=== PATIENT | female | born 1995 | race Hispanic/Latino ===

== ENCOUNTER 2018-11-20 03:53 | Emergency (ER) | payer OTHER, SELFPAY ==
[2018-11-20] MEDS ORDERED: IBUPROFEN 400 MG TAB ONE (04:09)
[2018-11-20] MEDS ORDERED: IBUPROFEN 200 MG TAB PO ONE (04:09)
--- NOTE | 2018-11-20 04:34 | ER ---
Nurse's Notes [facility] Name: Inés Valencia Age: 23 yrs Sex: Female : 1995 Arrival Date: 11/20/2018 Time: 03:56 Bed 13 Private MD: Diagnosis: Pain in right shoulder Presentation: 11/20 04:05 Presenting complaint: Patient states: I dive in the pool, hit my right shoulder did not rr5 noticed I am too closed on the side of the pool. Transition of care: patient was not received from another setting of care. Onset of symptoms was November 20, 2018 at 02:00. Risk Assessment: Do you want to hurt yourself or someone else? Patient reports no desire to harm self or others. Initial Sepsis Screen: Does the patient meet any 2 criteria? No. Patient's initial sepsis screen is negative. Does the patient have a suspected source of infection? No. Patient's initial sepsis screen is negative. Care prior to arrival: None. 04:05 Method Of Arrival: Ambulatory rr5 04:05 Acuity: FABIOLA 3 rr5 Triage Assessment: 04:15 Injury Description: trauma to right shoulder. 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 - Social history:: Smoking status: Patient/guardian denies using tobacco, Patient uses alcohol, weekly. Patient/guardian denies using street drugs. - Ebola Screening: : Patient negative for fever greater than or equal to 101.5 degrees Fahrenheit, and additional compatible Ebola Virus Disease symptoms Patient denies exposure to infectious person Patient denies travel to an Ebola-affected area in the 21 days before illness onset. Screenin:12 Abuse screen: Denies threats or abuse. Denies injuries from another. Nutritional rr5 screening: No deficits noted. Tuberculosis screening: No symptoms or risk factors identified. Fall Risk None identified. Total Bernal Fall Scale indicates No Risk (0-24 pts). Assessment: 04:12 General: Appears in no apparent distress. uncomfortable, Behavior is calm, cooperative, rr5 appropriate for age. Pain: Complains of pain in right shoulder Pain does not radiate. Pain currently is 7 out of 10 on a pain scale. Quality of pain is described as aching, Pain began suddenly. Neuro: Level of Consciousness is awake, alert, obeys commands, Oriented to person, place, time, situation, Appropriate for age. Cardiovascular: Capillary refill < 3 seconds Patient's skin is warm and dry. Respiratory: Airway is patent Respiratory effort is even, unlabored, Respiratory pattern is regular, symmetrical. GI: No signs and/or symptoms were reported involving the gastrointestinal system. : No signs and/or symptoms were reported regarding the genitourinary system. EENT: No signs and/or symptoms were reported regarding the EENT system. Derm: Skin is intact, Skin temperature is warm. Musculoskeletal: Circulation, motion, and sensation intact. Capillary refill < 3 seconds, Range of motion: limited in right shoulder Reports pain in right shoulder. 04:44 Reassessment: Patient appears in no apparent distress at this time. Patient is alert, rr5 oriented x 3, equal unlabored respirations, skin warm/dry/pink. discharge instruction given and explained without complaints made. Vital Signs: 04:10 BP 114 / 65; Pulse 77; Resp 17; Temp 98; Pulse Ox 98% ; Weight 68.95 kg; Height 4 ft. rr5 10 in. (147.32 cm); Pain 7/10; 04:10 Body Mass Index 31.77 (68.95 kg, 147.32 cm) rr5 ED Course: 03:56 Patient arrived in ED. ag3 03:56 Thad Sauer RN is Primary Nurse. rr5 04:01 Geremias Santoyo MD is Attending Physician. kdr 04:10 Triage completed. rr5 04:12 Arm band placed on left wrist. rr5 04:14 Patient has correct armband on for positive identification. Bed in low position. Call rr5 light in reach. Side rails up X2. 04:14 No provider procedures requiring assistance completed. rr5 04:24 X-ray completed. Portable x-ray completed in exam room. Patient tolerated procedure sw well. 04:27 Shoulder Right (2 View) XRAY In Process Unspecified. EDMS 04:45 Shoulder immobilizer applied on right shoulder. rr5 04:45 Patient did not have IV access during this emergency room visit. rr5 Administered Medications: 04:11 Drug: Ibuprofen 600 mg Route: PO; jd3 04:44 Follow up: Response: No adverse reaction rr5 Outcome: 04:32 Discharge ordered by . kdr 04:45 Discharged to home ambulatory, with friend. rr5 04:45 Condition: stable 04:45 Discharge instructions given to patient, Instructed on discharge instructions, follow up and referral plans. medication usage, Demonstrated understanding of instructions, follow-up care, medications, Prescriptions given X 2. 04:47 Patient left the ED. rr5 Signatures: Dispatcher [employer] EDMS Geremias Santoyo MD MD kdr Warren, Shannon sw Davies, Jonathon, RN RN jd3 Lisbeth Lopez Raymond, RN RN rr5
--- NOTE | 2018-11-20 04:35 | EDPHYS ---
Physician Documentation [facility] Name: Inés Valencia Age: 23 yrs Sex: Female : 1995 Arrival Date: 11/20/2018 Time: 03:56 Bed 13 Private MD: ED Physician Geremias Santoyo HPI: 11/20 04:05 This 23 yrs old Female presents to ER via Unassigned with complaints of kdr Shoulder Injury. 04:05 The patient or guardian complains of contusion, decreased range of motion, an injury, kdr pain, that is acute, tenderness. right shoulder and right trapezius. Context: The problem was sustained at home, at a Pool, resulted from a fall, Was diving into a pool and hit her shoulder on the rail, The patient experiences decreased range of motion, when attempts to raise arm. Onset: The symptoms/episode began/occurred suddenly, just prior to arrival, 3 hour(s) ago. Modifying factors: the symptoms are alleviated by remaining still, The symptoms are aggravated by movement. Associated signs and symptoms: The patient has no apparent associated signs or symptoms. Severity of symptoms: At their worst the symptoms were mild, in the emergency department the symptoms are unchanged. Treatment prior to arrival includes: no previous treatment. The patient has not experienced similar symptoms in the past. The patient has not recently seen a physician. 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 - Social history:: Smoking status: Patient/guardian denies using tobacco, Patient uses alcohol, weekly. Patient/guardian denies using street drugs. - Ebola Screening: : Patient negative for fever greater than or equal to 101.5 degrees Fahrenheit, and additional compatible Ebola Virus Disease symptoms Patient denies exposure to infectious person Patient denies travel to an Ebola-affected area in the 21 days before illness onset. ROS: 04:05 Constitutional: Negative for fever, chills, and weight loss, Eyes: Negative for injury, kdr pain, redness, and discharge, Neck: Negative for injury, pain, and swelling, Cardiovascular: Negative for chest pain, palpitations, and edema, Respiratory: Negative for shortness of breath, cough, wheezing, and pleuritic chest pain, Abdomen/GI: Negative for abdominal pain, nausea, vomiting, diarrhea, and constipation, Back: Negative for injury and pain, : Negative for injury, bleeding, discharge, and swelling, Skin: Negative for injury, rash, and discoloration, Neuro: Negative for headache, weakness, numbness, tingling, and seizure activity. Psych: Negative for depression, anxiety, suicide ideation, homicidal ideation, and hallucinations, Allergy/Immunology: Negative for hives, rash, and allergies, Endocrine: Negative for neck swelling, polydipsia, polyuria, polyphagia, and marked weight changes, Hematologic/Lymphatic: Negative for swollen nodes, abnormal bleeding, and unusual bruising. 04:05 MS/extremity: Positive for injury or acute deformity, decreased range of motion, pain, tenderness, of the right clavicle, right lateral posterior chest and anterior aspect of right shoulder. Exam: 04:05 Constitutional: This is a well developed, well nourished patient who is awake, alert, kdr and in no acute distress. Head/Face: Normocephalic, atraumatic. Neck: Trachea midline, no thyromegaly or masses palpated, and no cervical lymphadenopathy. Supple, full range of motion without nuchal rigidity, or vertebral point tenderness. No Meningismus. Chest/axilla: Normal chest wall appearance and motion. Nontender with no deformity. No lesions are appreciated. 04:05 Musculoskeletal/extremity: Extremities: grossly normal except: noted in the right clavicle and right lateral posterior chest: decreased ROM, pain, tenderness, Circulation is intact in all extremities. Sensation intact. Joints: All joints are normal except the right shoulder displays limited range of motion. Vital Signs: 04:10 BP 114 / 65; Pulse 77; Resp 17; Temp 98; Pulse Ox 98% ; Weight 68.95 kg; Height 4 ft. rr5 10 in. (147.32 cm); Pain 7/10; 04:10 Body Mass Index 31.77 (68.95 kg, 147.32 cm) rr5 MDM: 04:05 Data reviewed: vital signs, nurses notes, radiologic studies. Counseling: I had a kdr detailed discussion with the patient and/or guardian regarding: the historical points, exam findings, and any diagnostic results supporting the discharge/admit diagnosis, radiology results, the need for outpatient follow up. 04:30 ED course: Possible Hill=sachs deformity/fracture. kdr 04:32 Patient medically screened. kdr 11/20 04:05 Order name: Shoulder Right (2 View) XRAY kdr 11/20 04:30 Order name: Sling; Complete Time: 04:33 kdr Administered Medications: 04:11 Drug: Ibuprofen 600 mg Route: PO; jd3 04:44 Follow up: Response: No adverse reaction rr5 Disposition: 11/20/18 04:32 Discharged to Home. Impression: Pain in right shoulder. - Condition is Stable. - Discharge Instructions: Joint Pain, Musculoskeletal Pain, Shoulder Pain, [id number]. - Prescriptions for Tramadol 50 mg Oral Tablet - take 1 tablet by ORAL route every 8 hours as needed; 12 tablet. - Medication Reconciliation Form, Thank You Letter, Prescription Opioid Use form. - Follow up: Private Physician; When: 2 - 3 days; Reason: If symptoms return, Further diagnostic work-up, Recheck today's complaints, Continuance of care, Re-evaluation by your physician. - Problem is new. - Symptoms have improved. Signatures: Dispatcher [employer] EDMS Geremias Santoyo MD MD kdr Nii Costa RN RN jd3 Thad Sauer RN RN rr5 Corrections: (The following items were deleted from the chart) 04:47 04:32 11/20/2018 04:32 Discharged to Home. Impression: Pain in right shoulder. rr5 Condition is Stable. Forms are Medication Reconciliation Form, Thank You Letter, Antibiotic Education, Prescription Opioid Use. Follow up: Private Physician; When: 2 - 3 days; Reason: If symptoms return, Further diagnostic work-up, Recheck today's complaints, Continuance of care, Re-evaluation by your physician. Problem is new. Symptoms have improved. kdr
[2018-11-20 04:59] VITALS: BP 114/65; TEMP 98; O2SAT 98
--- NOTE | 2018-11-20 08:24 | RAD REPORT ---
EXAM DESCRIPTION: Shoulder Right 2 View - 11/20/2018 4:24 am CLINICAL HISTORY: Right shoulder pain following trauma, decreased range of motion COMPARISON: May 2014 TECHNIQUE: Internal and external rotation views of the right shoulder were obtained. FINDINGS: There is no fracture or dislocation. AC joint is normal in appearance. No acute or suspic ious findings. IMPRESSION: Negative two-view right shoulder examination. No change from comparison.
== END 2018-11-20 04:47 | disposition home or self-care (01) ==
LOC: ER 03:53
DX: M25.511 Pain in right shoulder (principal)
CPT/HCPCS: 99284

== ENCOUNTER 2021-03-14 13:49 | Emergency (ER) | payer SELFPAY ==
--- OUTSIDE RECORDS SUMMARY | 2021-03-14 13:53 | XMS REPORT | Continuity of Care Document ---
:1995 Author Organization [facility] t Address [address] [place] [address] Dr. Golden [address] [place] [id number] Care Team Providers Name Role Phone Unavailable Unavailable Unavailable Problems This patient has no known problems. Allergies, Adverse Reactions, Alerts This patient has no known allergies or adverse reactions. Medications This patient has no known medications. Procedures This patient has no known procedures. Results This patient has no known results.
[2021-03-14 15:20] LABS: SARS-COV-2 RT PCR POSITIVE (NEGATIVE)
--- NOTE | 2021-03-14 15:38 | ER ---
Nurse's Notes [facility] Name: Inés Valencia Age: 25 yrs Sex: Female : 1995 Arrival Date: 03/14/2021 Time: 14:06 Bed Waiting Private MD: Diagnosis: Coronavirus infection, unspecified Presentation: 03/14 14:19 Chief complaint: Patient states: body aches, chills, congestion, nausea, fatigue for ld1 two days. Coronavirus screen: Client presents with at least one sign or symptom that may indicate coronavirus-19. Standard/surgical mask placed on the client. Ebola Screen: No symptoms or risks identified at this time. Initial Sepsis Screen: Does the patient meet any 2 criteria? No. Patient's initial sepsis screen is negative. Does the patient have a suspected source of infection? No. Patient's initial sepsis screen is negative. Risk Assessment: Do you want to hurt yourself or someone else? Patient reports no desire to harm self or others. Onset of symptoms was March 14, 2021. 14:19 Method Of Arrival: Ambulatory ld1 14:19 Acuity: FABIOLA 4 ld1 Triage Assessment: 14:19 General: Appears in no apparent distress. comfortable, Behavior is calm, cooperative, ld1 appropriate for age. Pain: Denies pain. Respiratory: Airway is patent Respiratory effort is even, unlabored. 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 - Social history:: Smoking status: Reported history of juuling and/or vaping. Patient uses alcohol, occasionally. Patient/guardian denies using alcohol, street drugs, The patient lives with family. - Family history:: not pertinent. Vital Signs: 14:19 BP 136 / 74; Pulse 93; Resp 18; Temp 99.3(O); Pulse Ox 100% on R/A; Weight 79.38 kg; ld1 Height 5 ft. 2 in. (157.48 cm); Pain 0/10; 14:19 Body Mass Index 32.01 (79.38 kg, 157.48 cm) ld1 ED Course: 14:06 Patient arrived in ED. am2 14:06 Maxwell Lopez MD is Private Physician. am2 14:19 Triage completed. ld1 14:19 Arm band placed on right wrist. ld1 14:24 COVID-19/FLU A+B (Document "Date of Onset" if Symptomatic) Sent. ld1 15:27 Lucoi Garcia PA is PHCP. cp 15:27 Denis Reeves MD is Attending Physician. cp 15:43 Patient did not have IV access during this emergency room visit. ld1 Administered Medications: No medications were administered Outcome: 15:37 Discharge ordered by . ma2 15:42 Discharged to home ambulatory. ld1 15:42 Condition: stable 15:42 Discharge instructions given to patient, Instructed on discharge instructions, follow up and referral plans. medication usage, Demonstrated understanding of instructions, follow-up care, medications, Prescriptions given X 4. 15:43 Patient left the ED. ld1 Signatures: Lucio Garcia PA PA Mita Avina am2 Denis Reeves MD MD ma2 Quita Reeves RN RN ld1 Corrections: (The following items were deleted from the chart) 14:20 14:19 PSHx: Unable to Obtain; ld1 ld1
--- NOTE | 2021-03-14 15:38 | EDPHYS ---
Physician Documentation [facility] Name: Inés Valencia Age: 25 yrs Sex: Female : 1995 Arrival Date: 03/14/2021 Time: 14:06 Bed Waiting Private MD: ED Physician Denis Reeves HPI: 03/14 15:36 This 25 yrs old Female presents to ER via Ambulatory with complaints of r/o ma2 covid. 15:36 Onset: The symptoms/episode began/occurred suddenly, gradually, 2 day(s) ago. Severity ma2 of symptoms: At their worst the symptoms were mild. Associated signs and symptoms: The patient has no apparent associated signs or symptoms. The patient has not experienced similar symptoms in the past. 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 - Social history:: Smoking status: Reported history of juuling and/or vaping. Patient uses alcohol, occasionally. Patient/guardian denies using alcohol, street drugs, The patient lives with family. - Family history:: not pertinent. ROS: 15:36 Constitutional: Negative for fever, chills, and weight loss. ma2 15:36 All other systems are negative. Exam: 15:36 Constitutional: This is a well developed, well nourished patient who is awake, alert, ma2 and in no acute distress. Head/Face: Normocephalic, atraumatic. Eyes: Pupils equal round and reactive to light, extra-ocular motions intact. Lids and lashes normal. Conjunctiva and sclera are non-icteric and not injected. Cornea within normal limits. Periorbital areas with no swelling, redness, or edema. ENT: Nares patent. No nasal discharge, no septal abnormalities noted. Tympanic membranes are normal and external auditory canals are clear. Oropharynx with no redness, swelling, or masses, exudates, or evidence of obstruction, uvula midline. Mucous membranes moist. Neck: Trachea midline, no thyromegaly or masses palpated, and no cervical lymphadenopathy. Supple, full range of motion without nuchal rigidity, or vertebral point tenderness. No Meningismus. Respiratory: Lungs have equal breath sounds bilaterally, clear to auscultation and percussion. No rales, rhonchi or wheezes noted. No increased work of breathing, no retractions or nasal flaring. MS/ Extremity: Pulses equal, no cyanosis. Neurovascular intact. Full, normal range of motion. Neuro: Awake and alert, GCS 15, oriented to person, place, time, and situation. Cranial nerves II-XII grossly intact. Motor strength 5/5 in all extremities. Sensory grossly intact. Cerebellar exam normal. Normal gait. Vital Signs: 14:19 BP 136 / 74; Pulse 93; Resp 18; Temp 99.3(O); Pulse Ox 100% on R/A; Weight 79.38 kg; ld1 Height 5 ft. 2 in. (157.48 cm); Pain 0/10; 14:19 Body Mass Index 32.01 (79.38 kg, 157.48 cm) ld1 MDM: 15:36 Differential Diagnosis: Bronchitis Influenza Upper Respiratory Infection Sinusitis. ma2 Data reviewed: vital signs, nurses notes. Counseling: I had a detailed discussion with the patient and/or guardian regarding: the historical points, exam findings, and any diagnostic results supporting the discharge/admit diagnosis, the presence of at least one elevated blood pressure reading (>120/80) during this emergency department visit, the need for outpatient follow up. 15:37 Patient medically screened. ma2 03/14 14:21 Order name: COVID-19/FLU A+B (Document "Date of Onset" if Symptomatic); Complete Time: ld1 15:27 03/14 15:27 Interpretation: Reviewed. cp Administered Medications: No medications were administered Disposition Summary: 03/14/21 15:37 Discharge Ordered Location: Home ma2 Condition: Stable ma2 Diagnosis - Coronavirus infection, unspecified ma2 Followup: ma2 - With: Private Physician - When: Tomorrow - Reason: If symptoms return, Continuance of care Discharge Instructions: - COVID-19 ma2 - COVID-19 Frequently Asked Questions ma2 - Discharge Summary Sheet ld1 - 10 Things You Can Do to Manage Your COVID-19 Symptoms at Home - [facility] ma2 - COVID-19: Quarantine vs. Isolation - [facility] ma2 Forms: - Work release form ld1 - Medication Reconciliation Form ma2 - Thank You Letter ma2 - Antibiotic Education ma2 - Prescription Opioid Use ma2 Prescriptions: - Tessalon Perles 100 mg Oral Capsule - take 1 capsule by ORAL route every 8 hours As needed; 15 capsule; Refills: 0, ma2 Product Selection Permitted - Diclofenac Sodium 75 mg Oral Tablet Sustained Release - take 1 tablet by ORAL route 2 times per day; 30 tablet; Refills: 0, Product ma2 Selection Permitted - Zithromax Z-Fabricio 250 mg Oral Tablet - take 1 tablet by ORAL route as directed for 5 days Day 1 - take two (2) tablets ma2 one time. Day 2, 3, 4 , 5 take one (1) tablet once daily.; 6 tablet; Refills: 0, Product Selection Permitted - Medrol (Fabricio) 4 mg Oral Tablets, Dose Pack - take 1 tablet by ORAL route as directed - follow package instructions; 1 ma2 packet; Refills: 0, Product Selection Permitted Signatures: Dispatcher [employer] EDMS Lucio Garcia PA PA Denis Zacarias MD MD ma2 Quita Reeves RN RN ld1 Corrections: (The following items were deleted from the chart) 14:20 14:19 PSHx: Unable to Obtain; ld1 ld1
[2021-03-14 15:48] VITALS: BP 136/74; TEMP 99.3; O2SAT 100
== END 2021-03-14 15:43 | disposition home or self-care (01) ==
LOC: ER 13:49
DX: U07.1 COVID-19 (principal)
CPT/HCPCS: 0240U; 99283

== ENCOUNTER 2021-06-09 04:27 | Emergency (ER) | payer OTHER ==
--- OUTSIDE RECORDS SUMMARY | 2021-06-09 04:29 | XMS REPORT | Continuity of Care Document ---
:1995 Author Organization [facility] t Address [address] [place] [address] Dr. Golden [address] [place] [id number] Care Team Providers Name Role Phone Unavailable Unavailable Unavailable Problems This patient has no known problems. Allergies, Adverse Reactions, Alerts This patient has no known allergies or adverse reactions. Medications This patient has no known medications. Procedures This patient has no known procedures. Results Test Description Test Time Test Comments Results Result Comments Source CULTURE, URINE 2021-03-07 SPECIMEN NUMBER: 08:[id number] CULTURE, URINE SPECIMEN NUMBER: [id number] SPECIMEN COMMENT: URINE SOURCE: URINE REPORT STATUS: FINAL FINAL REPORT: 03/07/2021 50-100,000 CFU/ML UROGENITAL LALO PRESENT NO COMMON PATHOGENS VAGINAL PATHOGENS DNA PANEL 2021-03-06 14:35:22 Test Item Value Reference Range Interpretation Comme nts COTY SPECIES (test code = NEGATIVE NEGATIVE ) G. VAGINALIS (test code = NEGATIVE NEGATIVE ) T. VAGINALIS (test code = NEGATIVE NEGATIVE UNLESS OTHERWISE INDICATED, ) ALL TESTING PER FORMED ATCLINICAL PATHOLOGY LABOR [facility] [address] [place] [id number] LABORATORY DIRE CTOR: MOIRA AGUILAR M.D. CLIA NUMBER [id number] [place]. [id number]
[2021-06-09] MEDS ORDERED: ACETAMINOPHEN 500 MG TAB ONE (04:51)
[2021-06-09] MEDS ORDERED: IBUPROFEN 200 MG TAB PO ONE (05:04)
[2021-06-09] MEDS ORDERED: IBUPROFEN 400 MG TAB ONE (05:04)
[2021-06-09] MEDS ORDERED: NA CHLORIDE 0.9% 2,000 ML ONE (05:32)
[2021-06-09] MEDS ORDERED: CEFTRIAXONE 1000 MG/VIAL ONE (05:32)
[2021-06-09 05:37] LABS: Absolute Lymphocytes (CBC) 1.2 K/uL (0.7-4.9); Lymphocytes % 18.3 % (15.3-44.8); MPV 7.3 fL (7.6-11.3); RBC Red Blood Cell Count 4.27 M/uL (3.86-4.86)
[2021-06-09 05:58] LABS: SARS-COV-2 RT PCR NEGATIVE (NEGATIVE)
[2021-06-09] MEDS ORDERED: AZITHROMYCIN 250 MG TAB ONE (06:08)
--- NOTE | 2021-06-09 06:10 | ER ---
Nurse's Notes [facility] Name: Inés Valencia Age: 25 yrs Sex: Female : 1995 Arrival Date: 06/09/2021 Time: 04:31 Bed 13 Private MD: Diagnosis: Fever, unspecified;Acute upper respiratory infection, unspecified;Influenza due to identified novel influenza A virus Presentation: 06/09 04:48 Chief complaint: Patient states: she has been having a cough, fever, chills and body sm5 aches since Tuesday night. states she has been taking an antibiotic at home that is her mom's and not prescribed to her. Coronavirus screen: Vaccine status: Patient reports being unvaccinated. Ebola Screen: No symptoms or risks identified at this time. Initial Sepsis Screen: Does the patient meet any 2 criteria? Temp <36.0*C (96.8*F)) or > 38.3*C (100.9*F). HR > 90 bpm. Yes Does the patient have a suspected source of infection? Yes: Productive cough/pneumonia. Risk Assessment: Do you want to hurt yourself or someone else? Patient reports no desire to harm self or others. Onset of symptoms was June 06, 2021. 04:48 Method Of Arrival: Ambulatory [facility] 04:48 Acuity: FABIOLA 3 sm5 Triage Assessment: 05:03 General: Appears uncomfortable, ill, Behavior is calm, cooperative, appropriate for vc1 age. Pain: Denies pain. Complains of pain in "all over" Pain does not radiate. Neuro: Level of Consciousness is awake, alert, obeys commands, Oriented to person, place, time, situation, Appropriate for age. Respiratory: Airway is patent Respiratory effort is even, unlabored, Respiratory pattern is regular, symmetrical. 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 Flu vaccine is up to date. - Social history:: Smoking status: Reported history of juuling and/or vaping. Screenin:03 Abuse screen: Denies threats or abuse. Nutritional screening: No deficits noted. vc1 Tuberculosis screening: No symptoms or risk factors identified. Fall Risk None identified. Assessment: 05:05 Reassessment: See Triage for assessment. Patient instructed to keep sweater off until vc1 temperature is down. 06:11 Reassessment: Patient and/or family updated on plan of care and expected duration. Pain vc1 level reassessed. Patient is alert, oriented x 3, equal unlabored respirations, skin warm/dry/pink. Patient states feeling better. Patient states symptoms have improved. Vital Signs: 04:48 BP 157 / 100; Pulse 113; Resp 19; Temp 103.5(O); Pulse Ox 100% on R/A; Weight 90.72 kg; 5 Height 4 ft. 11 in. (149.86 cm); 05:44 BP 135 / 85; Pulse 94; Resp 20; Temp 101.5(O); Pulse Ox 98% ; vc1 05:52 Temp 101.5; vc1 06:24 Temp 101.5; vc1 06:30 BP 120 / 84; Pulse 88; Resp 18; Temp 99.5; Pulse Ox 100% on R/A; vc1 04:48 Body Mass Index 40.39 (90.72 kg, 149.86 cm) [facility] ED Course: 04:31 Patient arrived in ED. es 04:49 Triage completed. [facility] 04:50 Arm band placed on right wrist. [facility] 05:04 Lucio Huntley MD is Attending Physician. [facility] 05:04 Patient has correct armband on for positive identification. Bed in low position. Call vc1 light in reach. Pulse ox on. NIBP on. 05:43 CBC with Diff Sent. vc1 05:43 COVID-19/FLU A+B Sent. vc1 05:43 Comprehensive Metabolic Panel Sent. vc1 05:43 Blood Culture Adult (2) Sent. vc1 05:43 Lactate Sent. vc1 05:52 Faith Jimenez, LAM is Primary Nurse. vc1 05:53 Chest Single View XRAY In Process Unspecified. EDMS 06:47 No provider procedures requiring assistance completed. IV discontinued, intact, vc1 bleeding controlled, No redness/swelling at site. Pressure dressing applied. Administered Medications: 04:51 Drug: Tylenol 1000 mg Route: PO; vc1 05:52 Follow up: Temp 101.5; Response: No adverse reaction; Temperature is decreased vc1 05:03 Drug: Motrin (ibuprofen) 600 mg Route: PO; vc1 06:24 Follow up: Temp 101.5; Response: No adverse reaction; Temperature is decreased vc1 05:43 Drug: NS 0.9% (30 ml/kg) 30 ml/kg Route: IV; Rate: bolus; Site: right antecubital; vc1 06:49 Follow up: Response: No adverse reaction; Marked relief of symptoms; IV Status: vc1 Completed infusion; IV Intake: 700ml ; Patient ready to leave. 05:44 Drug: Rocephin (cefTRIAXone) 1 grams Route: IV; Rate: per protocol; Site: right vc1 antecubital; 06:48 Follow up: Response: No adverse reaction; IV Intake: 20ml vc1 06:49 Follow up: IV Status: Completed infusion vc1 06:21 Drug: Zithromax (azithromycin) 500 mg Route: PO; vc1 06:46 Follow up: Response: No adverse reaction vc1 Intake: 06:48 IV: 20ml; Total: 20ml. vc1 06:49 IV: 700ml; Total: 720ml. vc1 Outcome: 06:10 Discharge ordered by MD. diane 06:47 Discharged to home ambulatory. vc1 06:47 Condition: good 06:47 Discharge instructions given to patient, Instructed on discharge instructions, follow up and referral plans. medication usage, Demonstrated understanding of instructions, follow-up care, medications. 06:48 Patient left the ED. vc1 Signatures: Dispatcher [employer] Lucio Serna MD MD cha Salyer, Edna es Mazur, Sarah RN RN sm5 Faith Jimenez RN RN vc1
--- NOTE | 2021-06-09 06:11 | EDPHYS ---
Physician Documentation [facility] Name: Inés Valencia Age: 25 yrs Sex: Female : 1995 Arrival Date: 06/09/2021 Time: 04:31 Bed 13 Private MD: ED Physician Lucio Huntley HPI: 06/09 05:35 This 25 yrs old Female presents to ER via Ambulatory with complaints of Fever, roxi Cough, chills,body ache. 05:35 The patient reports fever, that was measured at 103.5 degrees Fahrenheit. Onset: The roxi symptoms/episode began/occurred 5 day(s) ago. Modifying factors: there are no obvious modifying factors. Associated signs and symptoms: Pertinent positives: chills, cough. Severity of symptoms: At their worst the symptoms were moderate in the emergency department the symptoms are unchanged. The patient has not experienced similar symptoms in the past. 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 Flu vaccine is up to date. - Social history:: Smoking status: Reported history of juuling and/or vaping. ROS: 05:36 Eyes: Negative for injury, pain, redness, and discharge, ENT: Negative for injury, roxi pain, and discharge, Neck: Negative for injury, pain, and swelling, Cardiovascular: Negative for chest pain, palpitations, and edema, Abdomen/GI: Negative for abdominal pain, nausea, vomiting, diarrhea, and constipation, Back: Negative for injury and pain, : Negative for injury, bleeding, discharge, and swelling, MS/Extremity: Negative for injury and deformity, Skin: Negative for injury, rash, and discoloration, Neuro: Negative for headache, weakness, numbness, tingling, and seizure, Psych: Negative for depression, anxiety, suicide ideation, homicidal ideation, and hallucinations, Allergy/Immunology: Negative for hives, rash, and allergies, Endocrine: Negative for neck swelling, polydipsia, polyuria, polyphagia, and marked weight changes, Hematologic/Lymphatic: Negative for swollen nodes, abnormal bleeding, and unusual bruising. 05:36 Constitutional: Positive for body aches, chills, fever. 05:36 Respiratory: Positive for cough, with no reported sputum. Exam: 05:36 Head/Face: Normocephalic, atraumatic. Eyes: Pupils equal round and reactive to light, roxi extra-ocular motions intact. Lids and lashes normal. Conjunctiva and sclera are non-icteric and not injected. Cornea within normal limits. Periorbital areas with no swelling, redness, or edema. ENT: Nares patent. No nasal discharge, no septal abnormalities noted. Tympanic membranes are normal and external auditory canals are clear. Oropharynx with no redness, swelling, or masses, exudates, or evidence of obstruction, uvula midline. Mucous membranes moist. Neck: Trachea midline, no thyromegaly or masses palpated, and no cervical lymphadenopathy. Supple, full range of motion without nuchal rigidity, or vertebral point tenderness. No Meningismus. Chest/axilla: Normal chest wall appearance and motion. Nontender with no deformity. No lesions are appreciated. Abdomen/GI: Soft, non-tender, with normal bowel sounds. No distension or tympany. No guarding or rebound. No evidence of tenderness throughout. Back: No spinal tenderness. No costovertebral tenderness. Full range of motion. Pelvic Exam: Normal external genitalia. Speculum exam with closed cervical os, no discharge or bleeding noted. Bimanual exam with normal adnexa, no adnexal or cervical motion tenderness. Normal uterus. Skin: Warm, dry with normal turgor. Normal color with no rashes, no lesions, and no evidence of cellulitis. MS/ Extremity: Pulses equal, no cyanosis. Neurovascular intact. Full, normal range of motion. Neuro: Awake and alert, GCS 15, oriented to person, place, time, and situation. Cranial nerves II-XII grossly intact. Motor strength 5/5 in all extremities. Sensory grossly intact. Cerebellar exam normal. Normal gait. Psych: Awake, alert, with orientation to person, place and time. Behavior, mood, and affect are within normal limits. 05:36 Constitutional: The patient appears febrile. 05:36 Cardiovascular: Rate: tachycardic, Rhythm: regular, Pulses: Pulses are 4+ in bilateral radial, brachial, femoral, popliteal, posterior tibial and and dorsalis pedis arteries.. Heart sounds: normal, normal S1and S2, no S3 or S4, no murmur, no rub, no gallop, Edema: is not appreciated, JVD: is not appreciated. 05:36 Respiratory: the patient does not display signs of respiratory distress, Respirations: normal, Breath sounds: are clear throughout, no bronchial sounds, no decreased breath sounds, no rales, rhonchi, no stridor, no wheezing. Vital Signs: 04:48 BP 157 / 100; Pulse 113; Resp 19; Temp 103.5(O); Pulse Ox 100% on R/A; Weight 90.72 kg; 5 Height 4 ft. 11 in. (149.86 cm); 05:44 BP 135 / 85; Pulse 94; Resp 20; Temp 101.5(O); Pulse Ox 98% ; vc1 05:52 Temp 101.5; vc1 06:24 Temp 101.5; vc1 06:30 BP 120 / 84; Pulse 88; Resp 18; Temp 99.5; Pulse Ox 100% on R/A; vc1 04:48 Body Mass Index 40.39 (90.72 kg, 149.86 cm) [facility] MDM: 05:04 Patient medically screened. roxi 05:37 Differential diagnosis: viral Infection, bacterial infection, URI, bronchitis, roxi pneumonia UTI. Differential Diagnosis: Bronchitis Influenza Upper Respiratory Infection Allergic Rhinitis Viral Syndrome Pneumonia. Data reviewed: vital signs, nurses notes, lab test result(s), radiologic studies, plain films. Data interpreted: audiometric technician: rate is 113 beats/min, rhythm is regular, Pulse oximetry: on room air. Test interpretation: by ED physician or midlevel provider: plain radiologic studies. Counseling: I had a detailed discussion with the patient and/or guardian regarding: the historical points, exam findings, and any diagnostic results supporting the discharge/admit diagnosis, lab results, radiology results, the need for outpatient follow up, for definitive care, a family practitioner. 06/09 04:57 Order name: Strep vc1 06/09 04:57 Order name: Group A Streptococcus Rapid Sc; Complete Time: 06:09 EDMS 06/09 05:04 Order name: COVID-19/FLU A+B; Complete Time: 06:09 EDMS 06/09 05:08 Order name: CBC with Diff roxi 06/09 05:08 Order name: Comprehensive Metabolic Panel [facility] 06/09 05:08 Order name: Blood Culture Adult (2) [facility] 06/09 05:08 Order name: Lactate; Complete Time: 06:09 [facility] 06/09 05:08 Order name: CBC with Automated Diff; Complete Time: 06:09 [facility] 06/09 05:20 Order name: Throat Culture [facility] 06/09 05:31 Order name: Chest Single View XRAY [facility] 06/09 06:19 Order name: Urine Dipstick-Ancillary [facility] 06/09 05:31 Order name: Urine Dipstick-Ancillary (obtain specimen); Complete Time: 06:24 [facility] 06/09 05:31 Order name: Urine Test (obtain specimen); Complete Time: 06:24 [facility] 06/09 05:53 Order name: Labs - recollect needed: green top; Complete Time: 06:01 mw2 Administered Medications: 04:51 Drug: Tylenol 1000 mg Route: PO; vc1 05:52 Follow up: Temp 101.5; Response: No adverse reaction; Temperature is decreased vc1 05:03 Drug: Motrin (ibuprofen) 600 mg Route: PO; vc1 06:24 Follow up: Temp 101.5; Response: No adverse reaction; Temperature is decreased vc1 05:43 Drug: NS 0.9% (30 ml/kg) 30 ml/kg Route: IV; Rate: bolus; Site: right antecubital; vc1 06:49 Follow up: Response: No adverse reaction; Marked relief of symptoms; IV Status: vc1 Completed infusion; IV Intake: 700ml ; Patient ready to leave. 05:44 Drug: Rocephin (cefTRIAXone) 1 grams Route: IV; Rate: per protocol; Site: right vc1 antecubital; 06:48 Follow up: Response: No adverse reaction; IV Intake: 20ml vc1 06:49 Follow up: IV Status: Completed infusion vc1 06:21 Drug: Zithromax (azithromycin) 500 mg Route: PO; vc1 06:46 Follow up: Response: No adverse reaction vc1 Disposition Summary: 06/09/21 06:10 Discharge Ordered Location: Home roxi Problem: new roxi Symptoms: have improved roxi Condition: Stable roxi Diagnosis - Fever, unspecified roxi - Acute upper respiratory infection, unspecified roxi - Influenza due to identified novel influenza A virus roxi Followup: [facility] - With: Private Physician - When: 1 - 2 days - Reason: Recheck today's complaints, Continuance of care, Re-evaluation by your physician Discharge Instructions: - Discharge Summary Sheet roxi - Fever, Adult roxi - Upper Respiratory Infection, Adult roxi - Cool Mist Vaporizer roxi - Upper Respiratory Infection, Adult, [id number] roxi - Influenza, Adult roxi - Cough, Adult roxi - Influenza, Adult, [id number] [facility] Forms: - Medication Reconciliation Form [facility] - Thank You Letter [facility] - Antibiotic Education [facility] - Prescription Opioid Use [facility] Prescriptions: - Zithromax 500 mg Oral Tablet - take 1 tablet by ORAL route once daily for 5 days; 5 tablet; Refills: 0, roxi Product Selection Permitted Signatures: Dispatcher [employer] Lucio Serna MD MD cha Westbrook, Jairo mw2 Jazz Humphrey, RN RN sm5 Faith Jimenez RN RN vc1
[2021-06-09 06:19] LABS: Urine Blood Negative (Negative); Urine Glucose Negative (Negative); Urine Protein Negative (Negative); Urine Specific Gravity 1.025 (1.005-1.030); Urine pH 5.5 (5.0-7.0)
[2021-06-09 06:53] LABS: ALT/SGPT 42 U/L (12-78); AST/SGOT 27 U/L (15-37); Albumin 2.9 g/dL (3.4-5.0); Alkaline Phosphatase 89 U/L (45-117); BUN Blood Urea Nitrogen 12 mg/dL (7-18); Bicarbonate 24 mmol/L (21-32); Bilirubin Total 0.2 mg/dL (0.2-1.0); Glucose Level 108 mg/dL (74-106); Potassium 3.8 mmol/L (3.5-5.1); Protein, Total 6.5 g/dL (6.4-8.2); Sodium Level 137 mmol/L (136-145)
[2021-06-09 07:03] VITALS: BP 120/84; TEMP 99.5; O2SAT 100
--- NOTE | 2021-06-09 10:53 | RAD REPORT ---
EXAM DESCRIPTION: RAD - Chest Single View - 06/09/2021 5:53 am CLINICAL HISTORY: The patient is 25 years old and is Female; COUGH TECHNIQUE: Frontal view of the chest. COMPARISON: No relevant prior studies available. FINDINGS: Lungs: Haziness in the left lung base which may be due to overlying soft tissue, atelect asis, or airspace disease. Pleural space: Unremarkable. No pneumothorax. Heart: Unremarkable. Mediastinum: Unremarkable. Bones/joints: Unremarkable. Vasculature: Mildly prominent interstitial and vascular markings bilaterally. IMPRESSION: 1. Haziness in the left lung base which may be due to overlying soft tissue, atelectas is, or airspace disease. 2. Mildly prominent interstitial and vascular markings bilaterally. Electronically signed by: Twin Jean MD 06/09/2021 6:05 AM CDT Due to temporary technical issues with the PACS/Fluency reporting system, reports are being signed by the in house radiologists without review as a courtesy to insure prompt reporting. The interpreting radiologist is fully responsible for the content of the report.
== END 2021-06-09 06:48 | disposition home or self-care (01) ==
LOC: ER 04:27
DX: J10.1 Influenza due to other identified influenza virus with other respiratory manifestations (principal); Z20.822 Contact with and (suspected) exposure to COVID-19; E11.9 Type 2 diabetes mellitus without complications
CPT/HCPCS: 96365; 87040 ×2; 87070; 85025; 36415; 87081; 83605; 81003; 80053; 0240U; 71045; 99284; J7030

== ENCOUNTER 2023-12-29 23:53 | Emergency (ER) | payer OTHER, SELFPAY ==
--- OUTSIDE RECORDS SUMMARY | 2023-12-29 23:59 | XMS REPORT | Continuity of Care Document ---
Author Name Unknown Address [address] [facility] [address] [place] [address] [facility] thconnect Address [address] [facility] [address] [place] [address] Care Team Providers Care Bowling Alley Manager Name Role Phone PCP, PATIENT DOES NOT HAVE A Primary Care Physic michi Unavailable ANTONIO MORE Attending Clinician UnavailAntonio Iqbal Attending Clinician EVA WILSON Attending Clinician Unavailab Eva Dela Cruz DO Attending Clinician [phone] ANTONIO MORE Admitting Clinician Eleuterio james Payers Payer Name Policy Type Policy Number Effective Date Expirati on Date Source [facility] [id number] 2023 00:00:00 [facility] [id number] 2021 00:00:00 Problems Condition Name Condition Details Condition Category Status Onset Date Resolution Date Last Treatment Date Treating Clinician Comments Source Contracept joaquín management Contracept joaquín management Disease Active 05-30 00:00: 00 [facility] Over weight Over weight Disease Active 05-30 00:00: 00 [facility] Allergies, Adverse Reactions, Alerts Allergy Name Allergy Type Status Severity Reaction(s) Onset Date Inactive Date Treating Clinician Comments Source [place] - Intraven ous Propensi ty to adverse reaction to drug Active 09-12 00:00: 00 Oj Liang NO KNOWN ALLERGIE S Drug Class Active [facility] Social History Social Habit Start Date Stop Date Quantity Comments Source [facility] 2023-03-19 00:00:00 2023-03-19 00:00:00 Current drinker of alcohol (finding) [facility] History of Social function 2023-03-19 00:00:00 2023-03-19 00:00:00 [facility] Exposure to SARS-CoV-2 (event) 2022-07-03 00:00:00 2022-07-13 10:18:00 Not sure [facility] Tobacco use and exposure 2017-05-30 00:00:00 2017-05-30 00:00:00 Smokeless tobacco non-user [facility] Tobacco Comment 2017-05-30 00:00:00 2017-05-30 00:00:00 denies smoke expsoure [facility] Alcohol Comment 2016-10-05 00:00:00 2016-10-05 00:00:00 occasional [facility] Sex Assigned At 1995 00:00:00 1995 00:00:00 [facility] Smoking Status Start Date Stop Date Source Never smoked tobacco [facility] Medications Ordered Medication Name Filled Medication Name Start Date Stop Date Current Medication? Ordering Clinician Indication Dosage Frequency Signature (SIG) Comments Components Source ondansetron 4 mg disintegrat ing tablet 10-29 00:00: 00 Yes 1mg Oj Liang acetaminoph en (TYLENOL) tablet 1,000 mg 2022-03 08:15: 00 03-19 07:19 :00 No 1000mg 1,000 mg, Oral, ONCE, 1 dose, On 03/19/23 at 0215, Routine [facility] BENZONATATE 100 MG 2022-03 00:00: 00 Yes Oj Liang INHALE TWO (2) PUFFS BY MOUTH EVERY FOUR HOURS NEEDED FOR WHEEZING OR SHORTNESS OF BREATH. 2022-03 00:00: 00 Yes Oj Liang benzonatate 100 mg capsule 2022-03 00:00: 00 Yes [id number] 100mg Take 1 capsule by mouth 3 (three) times daily as needed for Cough. [facility] albuterol 90 mcg/actuati on inhaler 2022-03 2-30 00:00: 00 Yes [id number] 2{puff} Inhale 2 Puffs every 4 (four) hours as needed for Wheezing or Shortness of Breath. [facility] TAKE ONE (1) TABLET(S) BY MOUTH NOW AND REPEAT IN 72 HOURS. 2022-03 00:00: 00 Yes Oj Liang TAKE ONE (1) TABLET BY MOUTH TWICE A DAY FOR 7 DAYS. 2022-03 0 00:00: 00 Yes Oj Liang TAKE 1 TABLET DAILY. 11-09 00:00: 00 06-30 00:00 :00 No 1 Oj Liang TAKE 1 TABLET TWICE DAILY UNTIL FINISHED. 07-16 00:00: 00 06-30 00:00 :00 No 500 Oj Liang TAKE ONE NOW AND REPEAT IN 3 DAYS 07-16 00:00: 00 06-30 00:00 :00 No 150 Oj Liang TAKE 1 TABLET EVERY 12 HOURS DAILY. 07-16 00:00: 00 06-30 00:00 :00 No 1 Oj Liang TAKE ONE NOW AND REPEAT IN 3 DAYS 07-15 00:00: 00 06-30 00:00 :00 No 150 Oj Liang TAKE 1 TABLET EVERY 12 HOURS DAILY. 07-15 00:00: 00 06-30 00:00 :00 No 1 Oj Liang TAKE 1 TABLET TWICE DAILY UNTIL FINISHED. 07-15 00:00: 00 06-30 00:00 :00 No 500 Oj Liang TAKE ONE (1) TABLET(S) BY MOUTH EVERY TWELVE HOURS. 07-13 00:00: 00 Yes Oj Liang sulfamethox azole-trime thoprim 800-160 mg per tablet 07-13 00:00: 00 Yes [id number] 1{tbl} Take 1 tablet by mouth every 12 (twelve) hours. [facility] TAKE 10 ML EVERY 6 TO 8 HOURS NEEDED FOR COUGH 07-12 00:00: 00 06-30 00:00 :00 No [id number] Oj F Garth TAKE 2 TABLETS ON DAY 1 THEN TAKE 1 TABLET A DAY FOR 4 DAYS. 4-24 00:00: 00 06-30 00:00 :00 No 250 Oj F Garth TAKE 1 TABLET DAILY. 3-01 00:00: 00 06-30 00:00 :00 No 500 Oj F Garth APPLY SPARINGLY TO AFFECTED AREA(S) TWICE DAILY 1-25 00:00: 00 06-30 00:00 :00 No 12 Oj F Garth TAKE 1 TAB DAILY THE FIRST 5 DAYS, THEN HALF TAB DAILY THE LAST 5 DAYS 1-25 00:00: 00 06-30 00:00 :00 No 20 Oj F Garth Dose Unknown 2021-03 2-14 00:00: 00 Yes Oj F Garth Dose Unknown 2021-03 2-14 00:00: 00 Yes Oj F Garth Dose Unknown 2021-03 2-14 00:00: 00 Yes Oj F Garth APPLY 1 APPLICATION ON THE SKIN 3 TIMES WEEKLY 2021-03 2-14 00:00: 00 06-30 00:00 :00 No Oj F Garth Dose Unknown 2021-03 2-14 00:00: 00 06-30 00:00 :00 No Oj F Garth Dose Unknown 2021-03 2-14 00:00: 00 06-30 00:00 :00 No Oj F Garth TAKE 2 TABLETS BY MOUTH ON DAY 1, THEN 1 TABLET DAILY ON DAYS 2 TO 5. 2021-03 2-14 00:00: 00 06-30 00:00 :00 No Oj F Garth Dose Unknown 8-02 00:00: 00 Yes Oj F Garth Dose Unknown 6-29 00:00: 00 06-30 00:00 :00 No Oj F Garth TAKE FIVE (5) TO 10 ML(S) BY MOUTH EVERY SIX HOURS NEEDED FOR COUGH. 6-25 00:00: 00 Yes Oj F Garth Dose Unknown 6-25 00:00: 00 Yes Oj F Garth Dose Unknown 6-25 00:00: 00 Yes Oj Liang TAKE ONE (1) TABLET(S) BY MOUTH AND REPEAT IN 72 HOURS. 09-09 00:00: 00 Yes Oj Liang Dose Unknown 09-09 00:00: 00 Yes Oj Liang Dose Unknown 09-09 00:00: 00 Yes Oj Liang TAKE ONE (1) CAPSULE(S) BY MOUTH ONCE A DAY. 09-06 00:00: 00 Yes Oj Liang Dose Unknown 09-04 00:00: 00 Yes Oj Liang Dose Unknown 09-04 00:00: 00 Yes Oj Liang METRONIDAZO LE 500 MG TABS 08-27 00:00: 00 Yes Oj Liang TAMSULOSIN HYDROCHLORI DE 0.4 MG CAPS 08-24 00:00: 00 Yes Oj Liang TAKE ONE (1) TABLET(S) BY MOUTH TWICE A DAY. 08-24 00:00: 00 Yes Oj Liang Dose Unknown 08-24 00:00: 00 06-30 00:00 :00 No Oj Liang Dose Unknown 08-21 00:00: 00 Yes Oj Liang TAKE ONE (1) TABLET(S) BY MOUTH EVERY FOUR TO SIX HOURS NEEDED FOR PAIN. 08-21 00:00: 00 Yes Oj Liang TAKE ONE (1) TABLET(S) BY MOUTH NOW A SINGLE DOSE. 08-21 00:00: 00 Yes Oj Liang TAKE ONE (1) TABLET(S) BY MOUTH TWICE A DAY. 08-21 00:00: 00 Yes Oj Liang Dose Unknown 08-21 00:00: 00 Yes Oj Liang Dose Unknown 08-21 00:00: 00 Yes 2 Oj Liang TAMSULOSIN HYDROCHLORI DE 0.4 MG 24 00:00: 00 Yes Oj Liang TAKE ONE (1) TABLET(S) BY MOUTH EVERY FOUR TO SIX HOURS NEEDED FOR PAIN. 08-11 00:00: 00 Yes Oj Liang metronidazo le 500 mg tablet 07-21 00:00: 00 Yes 1mg Oj Liang Dose Unknown 07-21 00:00: 00 Yes Oj Liang Dose Unknown 07-21 00:00: 00 Yes Oj Liang TAKE ONE (1) TABLET(S) BY MOUTH NOW A SINGLE DOSE. 06-09 00:00: 00 Yes Oj Liang BROMPHEN/PS EUDOEPHEDRI NE HCL/DEXTRO METHORPHAN HBR 30-2-10 MG/5ML SYRP 06-09 00:00: 00 06-30 00:00 :00 No Oj Liang metronidazo le 500 mg tablet 2020-03 00:00: 00 Yes 1mg Oj Liang Dose Unknown 2020-03 00:00: 00 Yes Oj Liang Dose Unknown 12-15 00:00: 00 Yes Oj Liang Flagyl 500 mg tablet 05-21 00:00: 00 Yes 1mg Oj Liang Flagyl 500 mg tablet 12-11 00:00: 00 Yes 1mg Oj Liang Dose Unknown 11-15 00:00: 00 Yes Oj Liang Flagyl 500 mg tablet 11-13 00:00: 00 Yes 1mg Oj Liang Flagyl 500 mg tablet 2 00:00: 00 Yes 1mg Oj Liang levonorgest rel (PLAN B ORAL) 12-13 15:52: 04 Yes Take by mouth. [facility] amoxicillin -pot clavulanate 500 mg 500-125 mg tablet 11-30 00:00: 00 07-13 00:00 :00 No TAKE ONE (1) TABLET(S) BY MOUTH TWICE A DAY. [facility] METRONIDAZO LE 500 mg tablet 10-05 00:00: 00 07-13 00:00 :00 No 500mg Take 1 tablet by mouth 2 (two) times daily. [facility] SULFAMETHOX AZOLE-TRIME THOPRIM 800-160 mg per tablet 10-05 00:00: 00 07-13 00:00 :00 No 1{tbl} Take 1 tablet by mouth every 12 (twelve) hours. [facility] Immunizations Ordered Immunization Name Filled Immunization Name Date Status Comments Source Moderna COVID-19 Vaccine Moderna COVID-19 Vaccine 2021-09-24 00:00:00 Completed Oj Liang TDAP (ADACEL) VACCINE 2016-10-19 00:00:00 Completed [facility] TDAP (ADACEL) VACCINE Unknown Completed [facility] Vital Signs Vital Name Observation Time Observation Value Comments S reji Systolic blood pressure 2023-03-19 07:00:00 152 mm[Hg] [facility] Diastolic blood pressure 2023-03-19 07:00:00 94 mm[Hg] [facility] Heart rate 2023-03-19 07:00:00 94 /min [facility] Body temperature 2023-03-19 07:00:00 38.11 [place] [facility] Respiratory rate 2023-03-19 07:00:00 18 /min [facility] Body height 2023-03-19 07:00:00 149.9 cm [facility] Body weight 2023-03-19 07:00:00 70.308 kg [facility] BMI 2023-03-19 07:00:00 31.31 kg/m2 [facility] Oxygen saturation in Arterial blood by Pulse oximetry 2023-03-19 07:00:00 99 /min [facility] Systolic blood pressure 2022-07-13 18:14:58 129 mm[Hg] [facility] Diastolic blood pressure 2022-07-13 18:14:58 82 mm[Hg] [facility] Heart rate 2022-07-13 18:14:58 89 /min [facility] Respiratory rate 2022-07-13 18:14:58 18 /min [facility] Oxygen saturation in Arterial blood by Pulse oximetry 2022-07-13 18:14:58 95 /min [facility] Body temperature 2022-07-13 15:20:00 37.28 [place] [facility] Body height 2022-07-13 15:20:00 149.9 cm [facility] Body weight 2022-07-13 15:20:00 66.225 kg [facility] BMI 2022-07-13 15:20:00 29.49 kg/m2 [facility] BP Systolic 2023-03-31 08:59:00 Step hen F Garth BP Diastolic 2023-03-31 08:59:00 Raman phen F Garth Weight Measured 2023-03-31 08:59:00 Oj F Garth Height Measured 2023-03-31 08:59:00 Oj F Garth Body Temperature 2023-03-31 08:59:00 Oj F Garth Heart Rate 2023-03-31 08:59:00 Elizabeth en F Garth Respiratory Rate 2023-03-31 08:59:00 Oj F Garth BP Systolic 2022-07-15 15:54:00 123 mm[Hg] Step hen F Garth BP Diastolic 2022-07-15 15:54:00 85 mm[Hg] Raman phen F Garth Weight Measured 2022-07-15 15:54:00 143.60 pounds Oj F Garth Height Measured 2022-07-15 15:54:00 65.00 inches Oj F Garth Body Temperature 2022-07-15 15:54:00 99.20 degrees Oj F Garth Heart Rate 2022-07-15 15:54:00 93.00 /min Elizabeth en F Garth Respiratory Rate 2022-07-15 15:54:00 Oj F Garth BP Systolic 2022-07-06 11:00:00 119 mm[Hg] Step hen F Garth BP Diastolic 2022-07-06 11:00:00 80 mm[Hg] Raman phen F Garth Weight Measured 2022-07-06 11:00:00 148.60 pounds Oj F Garth Height Measured 2022-07-06 11:00:00 65.00 inches Oj F Garth Body Temperature 2022-07-06 11:00:00 98.10 degrees Oj F Garth Heart Rate 2022-07-06 11:00:00 54.00 /min Elizabeth en F Garth Respiratory Rate 2022-07-06 11:00:00 17.00 /min Oj F Garth BP Systolic 2022-05-19 08:46:00 117 mm[Hg] Step hen F Garth BP Diastolic 2022-05-19 08:46:00 77 mm[Hg] Raman phen F Garth Weight Measured 2022-05-19 08:46:00 151.00 pounds Oj F Garth Height Measured 2022-05-19 08:46:00 65.00 inches Oj F Garth Body Temperature 2022-05-19 08:46:00 98.00 degrees Oj F Garth Heart Rate 2022-05-19 08:46:00 81.00 /min Elizabeth en F Garth Respiratory Rate 2022-05-19 08:46:00 17.00 /min Oj F Garth BP Systolic 2022-04-14 09:48:00 107 mm[Hg] Step hen F Garth BP Diastolic 2022-04-14 09:48:00 76 mm[Hg] Raman phen F Garth Weight Measured 2022-04-14 09:48:00 154.00 pounds Oj F Garth Height Measured 2022-04-14 09:48:00 65.00 inches Oj F Garth Body Temperature 2022-04-14 09:48:00 98.20 degrees Oj F Garth Heart Rate 2022-04-14 09:48:00 79.00 /min Elizabeth en F Garth Respiratory Rate 2022-04-14 09:48:00 17.00 /min Oj F Garth BP Systolic 2022-01-08 08:40:00 110 mm[Hg] Step hen F Garth BP Diastolic 2022-01-08 08:40:00 58 mm[Hg] Raman phen F Garth Weight Measured 2022-01-08 08:40:00 156.40 pounds Oj F Garth Height Measured 2022-01-08 08:40:00 65.00 inches Oj F Garth Body Temperature 2022-01-08 08:40:00 98.30 degrees Oj F Garth Heart Rate 2022-01-08 08:40:00 65.00 /min Elizabeth en F Garth Respiratory Rate 2022-01-08 08:40:00 Oj F Garth BP Systolic 2021-12-01 08:19:00 112 mm[Hg] Step hen F Garth BP Diastolic 2021-12-01 08:19:00 63 mm[Hg] Raman phen F Garth Weight Measured 2021-12-01 08:19:00 163.40 pounds Oj F Garth Height Measured 2021-12-01 08:19:00 65.00 inches Oj F Garth Body Temperature 2021-12-01 08:19:00 98.20 degrees Oj F Garth Heart Rate 2021-12-01 08:19:00 70.00 /min Elizabeth en F Garth Respiratory Rate 2021-12-01 08:19:00 17.00 /min Oj F Garth BP Systolic 2021-10-20 10:37:00 109 mm[Hg] Step hen F Garth BP Diastolic 2021-10-20 10:37:00 73 mm[Hg] Raman phen F Garth Weight Measured 2021-10-20 10:37:00 163.60 pounds Oj F Garth Height Measured 2021-10-20 10:37:00 65.00 inches Oj F Garth Body Temperature 2021-10-20 10:37:00 97.50 degrees Oj F Garth Heart Rate 2021-10-20 10:37:00 79.00 /min Elizabeth en F Garth Respiratory Rate 2021-10-20 10:37:00 16.00 /min Oj F Garth BP Systolic 2021-09-12 13:56:00 122 mm[Hg] Step hen F Garth BP Diastolic 2021-09-12 13:56:00 83 mm[Hg] Raman phen F Garth Weight Measured 2021-09-12 13:56:00 159.00 pounds Oj F Garth Height Measured 2021-09-12 13:56:00 65.00 inches Oj F Garth Body Temperature 2021-09-12 13:56:00 98.70 degrees Oj F Garth Heart Rate 2021-09-12 13:56:00 69.00 /min Elizabeth en F Garth Respiratory Rate 2021-09-12 13:56:00 Oj F Garth BP Systolic 2021-08-24 16:14:00 110 mm[Hg] Step hen F Garth BP Diastolic 2021-08-24 16:14:00 67 mm[Hg] Raman phen F Garth Weight Measured 2021-08-24 16:14:00 166.70 pounds Oj F Garth Height Measured 2021-08-24 16:14:00 65.00 inches Oj F Garth Body Temperature 2021-08-24 16:14:00 Oj Liang Heart Rate 2021-08-24 16:14:00 70.00 /min Elizabeth Liang Respiratory Rate 2021-08-24 16:14:00 Oj Moses Garth Procedures Procedure Date / Time Performed Performing Clinicia n Source ASSIGNMENT OF BENEFITS 2023-03-19 07:55:34 Docto r Unassigned, [facility] XR CHEST 2 VW 2023-03-19 07:44:15 Antonio More [facility] URINALYSIS 2023-03-19 07:20:00 [facility] FOR GROUP A 2023-03-19 07:06:00 Antonio More [facility] RAPID INFLUENZA A/B 2023-03-19 07:06:00 Shabbir More [facility] COVID-19 (ID NOW RAPID TESTING) 2023-03-19 07:06:00 Antonio More [facility] CONSENT/REFUSAL FOR DIAGNOSIS AND TREATMENT 2023-03-19 06:56:27 Doctor Unassigned, [facility] POCT TEST 2022-07-13 16:52:00 Rebekah Wilson ra [facility] URINALYSIS 2022-07-13 15:57:[address] Eva Wilson Un [facility] [place] [place] CONSENT/REFUSAL FOR DIAGNOSIS AND TREATMENT 2022-07-13 15:07:12 Doctor Unassigned, [facility] Encounters Start Date/Time End Date/Time Encounter Type Admission Type Attending [facility] Facility Care Department Encounter ID Source 2023-10-30 11:31:40 2023-10-30 11:31:40 Outpatient [facility] [id number] Oj Moses Garth 2023-10-30 00:00:00 2023-10-30 00:00:00 Outpatient Visit [facility] [id number] Oj Moses Garth 2023-03-31 08:55:29 2023-03-31 08:55:29 Outpatient [facility] [id number] Oj Liang 2023-03-19 01:03:00 2023-03-19 02:43:00 Emergency X ANTONIO MORE [facility] ERT [id number] [facility] 2023-03-19 01:03:00 2023-03-19 02:43:00 Emergency Antonio More [facility] [id number] [facility] 2022-12-10 10:44:34 2022-12-10 10:44:34 Outpatient [facility] [id number] Oj Liang 2022-07-15 15:46:53 2022-07-15 15:46:53 Outpatient [facility] [id number] Oj Liang 2022-07-15 00:00:00 2022-07-15 00:00:00 Outpatient Visit [facility] [id number] Oj Liang 2022-07-15 00:00:00 2022-07-15 00:00:00 Outpatient Visit [facility] [id number] Oj Liang 2022-07-13 10:22:00 2022-07-13 13:18:00 Emergency X EVA WILSON [facility] ERT [id number] [facility] 2022-07-13 10:22:00 2022-07-13 13:18:00 Emergency Eva Wilson [facility] [id number] [facility] 2022-07-12 15:29:57 2022-07-12 15:29:57 Outpatient [facility] [id number] Oj Liang 2022-07-09 09:05:44 2022-07-09 09:05:44 Outpatient [facility] [id number] Oj Liang 2022-07-06 10:41:05 2022-07-06 10:41:05 Outpatient [facility] [id number] Oj Liang 2022-04-14 09:37:27 2022-04-14 09:37:27 Outpatient [facility] [id number] Oj Liang 2022-01-08 08:33:57 2022-01-08 08:33:57 Outpatient [facility] [id number] Oj Liang Results Test Description Test Time Test Comments Results Result Comments Source XR CHEST 2 VW 2023-02 08:03:3 0 Ordering physician: ANTONIO MORE Indication: Cough with fever Comparison: None Technical quality: Adequate Findings: PA and lateral views of the chest. The cardiopericardialsilhouette is within normal limits. The lungs are clear bilaterally. Thevisualized bony thorax is intact. [facility] HSV I AND II BY [id number] 00:00:00* Test Item Value Reference Range Interpretation Comme nts HSV 1 (test code = 93261) Negative HSV 2 (test code = 49755) Positive SOURCE (test code = 08466) Vagina SPECIMEN (test code = 44603) SEE NOTE Oj LiangHSV I AND II BY [id number] 00:00:00* Test Item Value Reference Range Interpretation Comme nts HSV 1 (test code = 98999) Negative HSV 2 (test code = 68858) Positive SOURCE (test code = 23947) Vagina SPECIMEN (test code = 15771) SEE NOTE Oj LiangHSV I AND II BY [id number] 00:00:00* Test Item Value Reference Range Interpretation Comme nts HSV 1 (test code = 34672) Negative HSV 2 (test code = 93284) Positive SOURCE (test code = 31186) Vagina SPECIMEN (test code = 82628) SEE NOTE Oj Moses Dania, [id number] 14:16:22SPECIMEN NUMBER: [id number] CULTURE, URINE SPECIMEN NUMBER: [id number] SPECIMEN COMMENT: URINE SOURCE: URINE REPORT STATUS: FINAL FINAL REPORT: 07/17/2022 10-50,000 CFU/ML UROGENITAL LALO PRESENT NO COMMON PATHOGENSCULTCLEMENTE, [id number] 00:00:00* Test Item Value Reference Range Interpretation Comme nts CULTURE, URINE (test code = 94073) SPECIMEN NUMBER: [id number] Oj LiangCULTURE, [id number] 00:00:00* Test Item Value Reference Range Interpretation Comme nts CULTURE, URINE (test code = 30306) SPECIMEN NUMBER: [id number] Oj LiangCULTURE, [id number] 00:00:00* Test Item Value Reference Range Interpretation Comme nts CULTURE, URINE (test code = 75294) SPECIMEN NUMBER: [id number] Oj Moses AustinCT/NG, NAAT, [id number] 17:47:11* Test Item Value Reference Range Interpretation Comme nts CHLAMYDIA, NAAT, URINE (test code = 87685) NEGATIVE NEGATIVE Testing is perfo rmed with Howard JOSHUA 6800/8800 systems usingreal-time polymerase chain reaction (PCR) method. Testing is performed with Howard JOSHUA 6800/8800 systems usingreal-time polymerase chain reaction (PCR) method. A negative result does not exclude low level infection, specimensampling error, or collection error. GONORRHEA, NAAT, URINE (test code = 52929) NEGATIVE NEGATIVE Testing is perfo rmed with Howard JOSHUA 6800/8800 systems usingreal-time polymerase chain reaction (PCR) method. Testing is performed with Howard JOSHUA 6800/8800 systems usingreal-time polymerase chain reaction (PCR) method. A negative result does not exclude low level infection, specimensampling error, or collection error. VAGINAL PATHOGENS DNA [id number] 15:50:53* Test Item Value Reference Range Interpretation Comme nts AMANDA SPECIES (test code = 95425) NEGATIVE NEGATIVE G. VAGINALIS (test code = 99436) NEGATIVE NEGATIVE T. VAGINALIS (test code = 16744) NEGATIVE NEGATIVE Note: The BD [facility] VPIII Microbial Identification Testis a DNA probe test intended for use in the detectionand identification of Amanda species, Gardnerellavaginalis and Trichomonas vaginalis nucleic acid. HEPATITIS PANEL, [id number] 05:22:30* Test Item Value Reference Range Interpretation Comme nts HEPATITIS A IgM (test code = 05190) NON-REACTIVE NON-REACTIVE HEPATITIS B CORE IgM (test code = 4644) NON-REACTIVE NON-REACTIVE HEPATITIS B SURF AG (test code = 2739) NON-REACTIVE NON-REACTIVE HEPATITIS C ANTIBODY (test code = 4675) NON-REACTIVE NON-REACTIVE INTERPRETATION HEPATITIS A: (test code = 2552) (NOTE) Hepatitis A serology shows no evidence of acute hepatitis A. INTERPRETATION HEPATITIS B: (test code = 54627) (NOTE) Hepatitis B serology shows no evidence of acute hepatitis B andno indication of exposure to hepatitis B virus in the previous thao eight months. INTERPRETATION HEPATITIS C: (test code = 52641) (NOTE) Hepatitis C serology shows no evidence of exposure to hepatitisC virus at this time. It can take up to 12 months after exposure tothe hepatitis C virus for antibodies to become detectable in the blood in certain patients. HIV 1/2 4TH GEN, RFLX [id number] 05:22:30* Test Item Value Reference Range Interpretation Comme nts HIV 1/2 4TH GEN, RFLX CONF (test code = 3514) NON-REACTIVE NON-REACTIVE [facility] has impo rtant pathology staff changes effective 05/19/2022. New pathology staff will provide uninterrupted, excellent patient care and clinical consultation. See URL: [email or web address]. UNLESS OTHERWISE INDICATED, ALL TESTING PERFORMED AT [facility] [address] [place] [address] DOOR REPAIRMAN: GISELLE HARRIS M.D. CLIA NUMBER [id number] [facility] [place]. [id number] RPR REFLEX TO T. PALLIDUM - [id number] 05:14:19* Test Item Value Reference Range Interpretation Comme nts RPR (test code = 48008) NON-REACTIVE NON-REACTIVE RPR TITER (test code = 3500) NOT INDIC. TITER NOT INDIC. VAGINAL PATHOGENS DNA [id number] 00:00:00* Test Item Value Reference Range Interpretation Comme nts AMANDA SPECIES (test code = 88932) NEGATIVE G. VAGINALIS (test code = 57794) NEGATIVE T. VAGINALIS (test code = 94274) NEGATIVE Oj Aurelia AustinCT/NG, TMA, [id number] 00:00:00* Test Item Value Reference Range Interpretation Comme nts CHLAMYDIA, NAAT, URINE (test code = 34339) NEGATIVE GONORRHEA, NAAT, URINE (test code = 01581) NEGATIVE Oj LiangACUTE HEPATITIS [id number] 00:00:00* Test Item Value Reference Range Interpretation Comme nts HEPATITIS A IgM (test code = 45211) NON-REACTIVE HEPATITIS B CORE IgM (test c ode = 4644) NON-REACTIVE HEPATITIS B SURF AG (test co de = 2739) NON-REACTIVE HEPATITIS C ANTIBODY (test c ode = 4675) NON-REACTIVE INTERPRETATION HEPATITIS A: (test code = 2552) (NOTE) INTERPRETATION HEPATITIS B: (test code = 16366) (NOTE) INTERPRETATION HEPATITIS C: (test code = 09776) (NOTE) Oj LiangRPR REFLEX TO T. PALLIDUM - [id number] 00:00:00* Test Item Value Reference Range Interpretation Comme nts RPR (test code = 25969) NON-REACTIVE RPR TITER (test code = 3500) NOT INDIC. TITER Oj LiangHIV 1/2 4TH GEN, RFLX [id number] 00:00:00* Test Item Value Reference Range Interpretation Comme nts HIV 1/2 4TH GEN, RFLX CONF ( test code = 3514) NON-REACTIVE Oj LiangVAGINAL PATHOGENS DNA [id number] 00:00:00* Test Item Value Reference Range Interpretation Comme nts AMANDA SPECIES (test code = 49839) NEGATIVE G. VAGINALIS (test code = 70609) NEGATIVE T. VAGINALIS (test code = 54300) NEGATIVE Oj LiangCT/NG, TMA, [id number] 00:00:00* Test Item Value Reference Range Interpretation Comme nts CHLAMYDIA, NAAT, URINE (test code = 25913) NEGATIVE GONORRHEA, NAAT, URINE (test code = 69889) NEGATIVE Oj LiangACUTE HEPATITIS [id number] 00:00:00* Test Item Value Reference Range Interpretation Comme nts HEPATITIS A IgM (test code = 01124) NON-REACTIVE HEPATITIS B CORE IgM (test c ode = 4644) NON-REACTIVE HEPATITIS B SURF AG (test co de = 2739) NON-REACTIVE HEPATITIS C ANTIBODY (test c ode = 4675) NON-REACTIVE INTERPRETATION HEPATITIS A: (test code = 2552) (NOTE) INTERPRETATION HEPATITIS B: (test code = 86921) (NOTE) INTERPRETATION HEPATITIS C: (test code = 00494) (NOTE) Oj Moses AustinRPR REFLEX TO T. PALLIDUM - [id number] 00:00:00* Test Item Value Reference Range Interpretation Comme nts RPR (test code = 33948) NON-REACTIVE RPR TITER (test code = 3500) NOT INDIC. TITER Oj LiangHIV 1/2 4TH GEN, RFLX [id number] 00:00:00* Test Item Value Reference Range Interpretation Comme nts HIV 1/2 4TH GEN, RFLX CONF ( test code = 3514) NON-REACTIVE Oj LiangVAGINAL PATHOGENS DNA [id number] 00:00:00* Test Item Value Reference Range Interpretation Comme nts AMANDA SPECIES (test code = 07907) NEGATIVE G. VAGINALIS (test code = 75499) NEGATIVE T. VAGINALIS (test code = 98596) NEGATIVE Oj LiangCT/NG, TMA, [id number] 00:00:00* Test Item Value Reference Range Interpretation Comme nts CHLAMYDIA, NAAT, URINE (test code = 13233) NEGATIVE GONORRHEA, NAAT, URINE (test code = 90151) NEGATIVE Oj LiangACUTE HEPATITIS [id number] 00:00:00* Test Item Value Reference Range Interpretation Comme nts HEPATITIS A IgM (test code = 80005) NON-REACTIVE HEPATITIS B CORE IgM (test c ode = 4644) NON-REACTIVE HEPATITIS B SURF AG (test co de = 2739) NON-REACTIVE HEPATITIS C ANTIBODY (test c ode = 4675) NON-REACTIVE INTERPRETATION HEPATITIS A: (test code = 2552) (NOTE) INTERPRETATION HEPATITIS B: (test code = 13650) (NOTE) INTERPRETATION HEPATITIS C: (test code = 43427) (NOTE) Oj LiangRPR REFLEX TO T. PALLIDUM - [id number] 00:00:00* Test Item Value Reference Range Interpretation Comme nts RPR (test code = 50747) NON-REACTIVE RPR TITER (test code = 3500) NOT INDIC. TITER Oj LiangHIV 1/2 4TH GEN, RFLX [id number] 00:00:00* Test Item Value Reference Range Interpretation Comme nts HIV 1/2 4TH GEN, RFLX CONF ( test code = 3514) NON-REACTIVE Oj Moses AustinPOCT [id number] 16:52:00* Test Item Value Reference Range Interpretation Comme nts POCT PREG (test code = 1605) Negative On board controls acceptable with C Line (test code = 3574) Present POCT PREG LOT # (test code = 3575) HCG [id number] POCT PREG TEST DATE (test code = 3576) 10/27/2023 Lab Interpretation (test cod e = 15352-8) [facility] [id number] 07:15:53* Test Item Value Reference Range Interpretation Comme nts CHOLESTEROL (test code = 2210) 142 MG/DL <200 TRIGLYCERIDES (test code = 2232) 48 MG/DL <150 HDL CHOLESTEROL (test code = 2220) 54 MG/DL >39 CALC LDL CHOL (test code = 2237) 74 MG/DL <100 NOTE: CALCULATED LDL IS BASED ON TAMI-CALDWELL METHOD WHICHINCLUDES ADJUSTABLE TRIGLYCERIDE:VLDL CHOLESTEROL RATIO.THIS FACTOR VARIES BY MEASURED TRIGLYCERIDE AND NON-HDLCHOLESTEROL CONCENTRATIONS WITH INCREASED CALCULATED LDL SEENIN HIGHER TRIGLYCERIDE OR LOWER NON-HDL SPECIMENS. FOR MOREINFORMATION, SEE CLIENT ANNOUNCEMENT AT [email or web address] RISK RATIO LDL/HDL (test code = 2238) 1.37 RATIO <3.22 [facility] has i mportant pathology staff changes effective 05/19/2022. New pathology staff will provide uninterrupted, excellent patient care and clinical consultation. See URL: [email or web address] UNLESS OTHERWISE INDICATED, ALL TESTING PERFORMED AT [facility] [address] [place] [id number] DOOR REPAIRMAN: GISELLE HARRIS M.D. CLIA NUMBER [id number] [facility] [place] [place]. [id number] HEMOGLOBIN [id number] 04:42:18* Test Item Value Reference Range Interpretation Comme nts HEMOGLOBIN A1c (test code = 32636) 5.5 % 4.2-5.6 LIPID [id number] 00:00:00* Test Item Value Reference Range Interpretation Comme nts CHOLESTEROL (test code = 2210) 142 MG/DL TRIGLYCERIDES (test code = 2232) 48 MG/DL HDL CHOLESTEROL (test code = 2220) 54 MG/DL CALC LDL CHOL (test code = 2237) 74 MG/DL RISK RATIO LDL/HDL (test cod e = 2238) 1.37 RATIO Oj Moses AustinHEMOGLOBIN [id number] 00:00:00* Test Item Value Reference Range Interpretation Comme nts HEMOGLOBIN A1c (test code = 58520) 5.5 % Oj Moses AustinLIPID [id number] 00:00:00* Test Item Value Reference Range Interpretation Comme nts CHOLESTEROL (test code = 2210) 142 MG/DL TRIGLYCERIDES (test code = 2232) 48 MG/DL HDL CHOLESTEROL (test code = 2220) 54 MG/DL CALC LDL CHOL (test code = 2237) 74 MG/DL RISK RATIO LDL/HDL (test cod e = 2238) 1.37 RATIO Oj Moses AustinHEMOGLOBIN [id number] 00:00:00* Test Item Value Reference Range Interpretation Comme nts HEMOGLOBIN A1c (test code = 46967) 5.5 % Oj Moses AustinLIPID [id number] 00:00:00* Test Item Value Reference Range Interpretation Comme nts CHOLESTEROL (test code = 2210) 142 MG/DL TRIGLYCERIDES (test code = 2232) 48 MG/DL HDL CHOLESTEROL (test code = 2220) 54 MG/DL CALC LDL CHOL (test code = 2237) 74 MG/DL RISK RATIO LDL/HDL (test cod e = 2238) 1.37 RATIO Oj Moses AustinHEMOGLOBIN [id number] 00:00:00* Test Item Value Reference Range Interpretation Comme nts HEMOGLOBIN A1c (test code = 41659) 5.5 % Oj Moses AustinVAGINAL PATHOGENS DNA [id number] 14:56:30* Test Item Value Reference Range Interpretation Comme nts AMANDA SPECIES (test code = 28938) NEGATIVE NEGATIVE G. VAGINALIS (test code = ) NEGATIVE NEGATIVE T. VAGINALIS (test code = 62578) NEGATIVE NEGATIVE UNLESS OTHERWISE INDICATED, [facility] TESTING [facility] [address] [place] [address], [place] [address] DOOR REPAIRMAN: MOIRA AGUILAR M.D. CLIA NUMBER [id number] [facility] [place] [place] [id number] VAGINAL PATHOGENS DNA [id number] 00:00:00* Test Item Value Reference Range Interpretation Comme nts AMANDA SPECIES (test code = ) NEGATIVE G. VAGINALIS (test code = 78224) NEGATIVE T. VAGINALIS (test code = 18869) NEGATIVE Oj F AustinVAGINAL PATHOGENS DNA [id number] 00:00:00* Test Item Value Reference Range Interpretation Comme nts AMANDA SPECIES (test code = ) NEGATIVE G. VAGINALIS (test code = 25993) NEGATIVE T. VAGINALIS (test code = 28925) NEGATIVE Oj F AustinVAGINAL PATHOGENS DNA [id number] 00:00:00* Test Item Value Reference Range Interpretation Comme nts AMANDA SPECIES (test code = ) NEGATIVE G. VAGINALIS (test code = 27261) NEGATIVE T. VAGINALIS (test code = ) NEGATIVE Oj F AustinCOMPREHENSIVE METABOLIC [id number] 04:34:32* Test Item Value Reference Range Interpretation Comme nts GLUCOSE (test code = 2216) 87 MG/DL 70-99 BUN (test code = 2207) 15 MG/DL 6-20 CREATININE (test code = 4) 0.71 MG/DL 0.60-1.30 eGFR (2020 CKD-EPI) (test code = 05823) 122 ML/MIN/1.73 >60 CALC BUN/CREAT (test code = 5) 21 RATIO 6-28 SODIUM (test code = 2231) 141 MEQ/L 133-146 POTASSIUM (test code = 2228) 4.2 MEQ/L 3.5-5.4 CHLORIDE (test code = 2215) 107 MEQ/L 95-107 CARBON DIOXIDE (test code = 2206) 23 MEQ/L 19-31 CALCIUM (test code = 2209) 9.8 MG/DL 8.5-10.5 PROTEIN, TOTAL (test code = 2228) 6.7 G/DL 6.1-8.3 ALBUMIN (test code = 1) 4.1 G/DL 3.5-5.2 CALC GLOBULIN (test code = 2240) 2.6 G/DL 1.9-3.7 CALC A/G RATIO (test code = 2234) 1.6 RATIO 1.0-2.6 BILIRUBIN, TOTAL (test code = 2206) 0.7 MG/DL See_Comment [Automated me ssage] The system which generated this result transmitted reference range: <=1.2. The reference range was not used to interpret this result as normal/abnormal. ALKALINE PHOSPHATASE (test code = 2204) 113 U/L 40-115 AST (test code = 2218) 54 U/L 9-40 H ALT (test code = 2219) 42 U/L 5-40 H LIPID [id number] 04:34:32* Test Item Value Reference Range Interpretation Comme nts CHOLESTEROL (test code = 2210) 186 MG/DL <200 TRIGLYCERIDES (test code = 2232) 101 MG/DL <150 HDL CHOLESTEROL (test code = 2220) 47 MG/DL >39 CALC LDL CHOL (test code = 2237) 119 MG/DL <100 H NOTE: CALCULATED LDL IS BASED ON TAMI-CALDWELL METHOD WHICHINCLUDES ADJUSTABLE TRIGLYCERIDE:VLDL CHOLESTEROL RATIO.THIS FACTOR VARIES BY MEASURED TRIGLYCERIDE AND NON-HDLCHOLESTEROL CONCENTRATIONS WITH INCREASED CALCULATED LDL SEENIN HIGHER TRIGLYCERIDE OR LOWER NON-HDL SPECIMENS. FOR MOREINFORMATION, SEE CLIENT ANNOUNCEMENT AT [email or web address] RISK RATIO LDL/HDL (test code = 2238) 2.53 RATIO <3.22 HEMOGLOBIN [id number] 04:34:27* Test Item Value Reference Range Interpretation Comme nts HEMOGLOBIN A1c (test code = 56466) 5.7 % 4.2-5.6 H UNLESS OTHERWISE INDICATED, ALL TESTING PERFORMED [facility] [address] [place] [address] DOOR REPAIRMAN: MOIRA AGUILAR M.D. CLIA NUMBER [id number] [facility] [place] [place]. [id number] CBC W/AUTO DIFF WITH [id number] 04:17:04* Test Item Value Reference Range Interpretation Comme nts WBC (test code = 1001) 8.7 K/UL 3.5-11.0 RBC (test code = 1002) 4.29 M/UL 3.80-5.40 HEMOGLOBIN (test code = 1003) 12.7 G/DL 11.5-15.5 HEMATOCRIT (test code = 1004) 38.0 % 34.0-45.0 MCV (test code = 1005) 88.6 fL 80.0-99.0 MCH (test code = 1006) 29.6 PG 25.0-33.0 MCHC (test code = 1007) 33.4 G/DL 31.0-36.0 RDW (test code = 1038) 12.7 % 11.5-15.0 NEUTROPHILS (test code = 1008) 65.8 % LYMPHOCYTES (test code = 1010) 25.6 % MONOCYTES (test code = 1011) 4.7 % EOSINOPHILS (test code = 1012) 3.0 % BASOPHILS (test code = 1013) 0.7 % IMMATURE GRANULOCYTES (test code = 1036) 0.2 % NUCLEATED RBCS (test code = 1065) 0.0 /100 WBC'S See_Comment [Automated Sky[employer] Systemsa ge] The system which generated this result transmitted reference range: 0.0. The reference range was not used to interpret this result as normal/abnormal. PLATELET COUNT (test code = 1015) 372 K/UL 130-400 ABSOLUTE NEUTROPHILS (test code = 1066) 5.72 K/UL 1.50-7.50 ABSOLUTE LYMPHOCYTES (test code = 1067) 2.23 K/UL 1.00-4.00 ABSOLUTE MONOCYTES (test code = 1068) 0.41 K/UL 0.20-1.00 ABSOLUTE EOSINOPHILS (test code = 1040) 0.26 K/UL 0.00-0.50 ABSOLUTE BASOPHILS (test code = 1069) 0.06 K/UL 0.00-0.20 ABS IMMATURE GRANULOCYTES (test code = 1020) 0.02 K/UL 0.00-0.10 ABS NUCLEATED RBCS (test code = 41806) 0.00 K/UL 0.00-0.11 TSH, THIRD [id number] 04:07:53* Test Item Value Reference Range Interpretation Comme [facility] TSH, THIRD GENERATION (test code = 2821) 0.851 UIU/ML 0.400-4.100 VITAMIN D, 25 [id number] 03:40:16* Test Item Value Reference Range Interpretation Comme [facility] VITAMIN D, 25 OH (test code = 4958) 32 NG/ML SEE BELOW NOTE: 25-HYDR OXYVITAMIN D ASSAY INCLUDES 25-HYDROXYVITAMIN D2 AND D3. METHODOLOGY IS CHEMILUMINESCENT IMMUNOASSAY. INTERPRETIVE RANGES PEDIATRIC (<17 YEARS) . . . . . . . . . . . NG/ML 20-100ADULT: INSUFFICIENT . . . . . . . . . . . . . . NG/ML <20 SUBOPTIMAL . . . . . . . . . . . . . . . NG/ML 20-29 OPTIMAL . . . . . . . . . . . . . . . . . NG/ML 30-100 COMPREHENSIVE METABOLIC [id number] 00:00:00* Test Item Value Reference Range Interpretation Comme nts GLUCOSE (test code = 2217) 87 MG/DL BUN (test code = 2208) 15 MG/DL CREATININE (test code = 2214) 0.71 MG/DL eGFR (2020 CKD-EPI) (test code = 75816) 122 ML/MIN/1.73 CALC BUN/CREAT (test code = 2235) 21 RATIO SODIUM (test code = 2231) 141 MEQ/L POTASSIUM (test code = 2228) 4.2 MEQ/L CHLORIDE (test code = 2215) 107 MEQ/L CARBON DIOXIDE (test code = 2206) 23 MEQ/L CALCIUM (test code = 2209) 9.8 MG/DL PROTEIN, TOTAL (test code = 2229) 6.7 G/DL ALBUMIN (test code = 2201) 4.1 G/DL CALC GLOBULIN (test code = 2240) 2.6 G/DL CALC A/G RATIO (test code = 2234) 1.6 RATIO BILIRUBIN, TOTAL (test code = 2207) 0.7 MG/DL ALKALINE PHOSPHATASE (test code = 2204) 113 U/L AST (test code = 2218) 54 U/L ALT (test code = 2219) 42 U/L Oj Moses AustinLIPID [id number] 00:00:00* Test Item Value Reference Range Interpretation Comme nts CHOLESTEROL (test code = 2210) 186 MG/DL TRIGLYCERIDES (test code = 2232) 101 MG/DL HDL CHOLESTEROL (test code = 2220) 47 MG/DL CALC LDL CHOL (test code = 2237) 119 MG/DL RISK RATIO LDL/HDL (test cod e = 2238) 2.53 RATIO Oj Moses GarthCBC W/AUTO [id number] 00:00:00* Test Item Value Reference Range Interpretation Comme nts WBC (test code = 1001) 8.7 K/UL RBC (test code = 1002) 4.29 M/UL HEMOGLOBIN (test code = 1003) 12.7 G/DL HEMATOCRIT (test code = 1004) 38.0 % MCV (test code = 1005) 88.6 fL MCH (test code = 1006) 29.6 PG MCHC (test code = 1007) 33.4 G/DL RDW (test code = 1038) 12.7 % NEUTROPHILS (test code = 1008) 65.8 % LYMPHOCYTES (test code = 1010) 25.6 % MONOCYTES (test code = 1011) 4.7 % EOSINOPHILS (test code = 1012) 3.0 % BASOPHILS (test code = 1013) 0.7 % IMMATURE GRANULOCYTES (test code = 1036) 0.2 % NUCLEATED RBCS (test code = 1065) 0.0 /100WBC'S PLATELET COUNT (test code = 1015) 372 K/UL ABSOLUTE NEUTROPHILS (test c ode = 1066) 5.72 K/UL ABSOLUTE LYMPHOCYTES (test c ode = 1067) 2.23 K/UL ABSOLUTE MONOCYTES (test cod e = 1068) 0.41 K/UL ABSOLUTE EOSINOPHILS (test c ode = 1040) 0.26 K/UL ABSOLUTE BASOPHILS (test cod e = 1069) 0.06 K/UL ABS IMMATURE GRANULOCYTES (t est code = 1020) 0.02 K/UL ABS NUCLEATED RBCS (test cod e = 88442) 0.00 K/UL Oj LiangVITAMIN D, 25 [id number] 00:00:00* Test Item Value Reference Range Interpretation Comme [facility] VITAMIN D, 25 OH (test code = 4958) 32 NG/ML Oj Moses GarthTSH, THIRD [id number] 00:00:00* Test Item Value Reference Range Interpretation Comme [facility] TSH, THIRD GENERATION (test code = 2821) 0.851 UIU/ML Oj LiangHEMOGLOBIN [id number] 00:00:00* Test Item Value Reference Range Interpretation Comme [facility] HEMOGLOBIN A1c (test code = 41344) 5.7 % Oj LiangCOMPREHENSIVE METABOLIC [id number] 00:00:00* Test Item Value Reference Range Interpretation Comme nts GLUCOSE (test code = 2217) 87 MG/DL BUN (test code = 2208) 15 MG/DL CREATININE (test code = 2214) 0.71 MG/DL eGFR (2020 CKD-EPI) (test code = 02283) 122 ML/MIN/1.73 CALC BUN/CREAT (test code = 2235) 21 RATIO SODIUM (test code = 2231) 141 MEQ/L POTASSIUM (test code = 2228) 4.2 MEQ/L CHLORIDE (test code = 2215) 107 MEQ/L CARBON DIOXIDE (test code = 2206) 23 MEQ/L CALCIUM (test code = 2209) 9.8 MG/DL PROTEIN, TOTAL (test code = 2229) 6.7 G/DL ALBUMIN (test code = 2201) 4.1 G/DL CALC GLOBULIN (test code = 2240) 2.6 G/DL CALC A/G RATIO (test code = 2234) 1.6 RATIO BILIRUBIN, TOTAL (test code = 2207) 0.7 MG/DL ALKALINE PHOSPHATASE (test code = 2204) 113 U/L AST (test code = 2218) 54 U/L ALT (test code = 2219) 42 U/L Oj LiangLIPID [id number] 00:00:00* Test Item Value Reference Range Interpretation Comme nts CHOLESTEROL (test code = 2210) 186 MG/DL TRIGLYCERIDES (test code = 2232) 101 MG/DL HDL CHOLESTEROL (test code = 2220) 47 MG/DL CALC LDL CHOL (test code = 2237) 119 MG/DL RISK RATIO LDL/HDL (test cod e = 2238) 2.53 RATIO Oj Aurelia GarthCBC W/AUTO [id number] 00:00:00* Test Item Value Reference Range Interpretation Comme nts WBC (test code = 1001) 8.7 K/UL RBC (test code = 1002) 4.29 M/UL HEMOGLOBIN (test code = 1003) 12.7 G/DL HEMATOCRIT (test code = 1004) 38.0 % MCV (test code = 1005) 88.6 fL MCH (test code = 1006) 29.6 PG MCHC (test code = 1007) 33.4 G/DL RDW (test code = 1038) 12.7 % NEUTROPHILS (test code = 1008) 65.8 % LYMPHOCYTES (test code = 1010) 25.6 % MONOCYTES (test code = 1011) 4.7 % EOSINOPHILS (test code = 1012) 3.0 % BASOPHILS (test code = 1013) 0.7 % IMMATURE GRANULOCYTES (test code = 1036) 0.2 % NUCLEATED RBCS (test code = 1065) 0.0 /100WBC'S PLATELET COUNT (test code = 1015) 372 K/UL ABSOLUTE NEUTROPHILS (test c ode = 1066) 5.72 K/UL ABSOLUTE LYMPHOCYTES (test c ode = 1067) 2.23 K/UL ABSOLUTE MONOCYTES (test cod e = 1068) 0.41 K/UL ABSOLUTE EOSINOPHILS (test c ode = 1040) 0.26 K/UL ABSOLUTE BASOPHILS (test cod e = 1069) 0.06 K/UL ABS IMMATURE GRANULOCYTES (t est code = 1020) 0.02 K/UL ABS NUCLEATED RBCS (test cod e = 58642) 0.00 K/UL Oj LiangVITAMIN D, 25 [id number] 00:00:00* Test Item Value Reference Range Interpretation Comme nts VITAMIN D, 25 OH (test code = 4958) 32 NG/ML Oj LiangTSH, THIRD [id number] 00:00:00* Test Item Value Reference Range Interpretation Comme nts TSH, THIRD GENERATION (test code = 2821) 0.851 UIU/ML Oj LiangHEMOGLOBIN [id number] 00:00:00* Test Item Value Reference Range Interpretation Comme nts HEMOGLOBIN A1c (test code = 32469) 5.7 % Oj LiangCOMPREHENSIVE METABOLIC [id number] 00:00:00* Test Item Value Reference Range Interpretation Comme nts GLUCOSE (test code = 2217) 87 MG/DL BUN (test code = 2208) 15 MG/DL CREATININE (test code = 2214) 0.71 MG/DL eGFR (2020 CKD-EPI) (test code = 63843) 122 ML/MIN/1.73 CALC BUN/CREAT (test code = 2235) 21 RATIO SODIUM (test code = 2231) 141 MEQ/L POTASSIUM (test code = 2228) 4.2 MEQ/L CHLORIDE (test code = 2215) 107 MEQ/L CARBON DIOXIDE (test code = 2206) 23 MEQ/L CALCIUM (test code = 2209) 9.8 MG/DL PROTEIN, TOTAL (test code = 2229) 6.7 G/DL ALBUMIN (test code = 2201) 4.1 G/DL CALC GLOBULIN (test code = 2240) 2.6 G/DL CALC A/G RATIO (test code = 2234) 1.6 RATIO BILIRUBIN, TOTAL (test code = 2207) 0.7 MG/DL ALKALINE PHOSPHATASE (test code = 2204) 113 U/L AST (test code = 2218) 54 U/L ALT (test code = 2219) 42 U/L Oj LiangLIPID [id number] 00:00:00* Test Item Value Reference Range Interpretation Comme nts CHOLESTEROL (test code = 2210) 186 MG/DL TRIGLYCERIDES (test code = 2232) 101 MG/DL HDL CHOLESTEROL (test code = 2220) 47 MG/DL CALC LDL CHOL (test code = 2237) 119 MG/DL RISK RATIO LDL/HDL (test cod e = 2238) 2.53 RATIO Oj LiangCBC W/AUTO [id number] 00:00:00* Test Item Value Reference Range Interpretation Comme nts WBC (test code = 1001) 8.7 K/UL RBC (test code = 1002) 4.29 M/UL HEMOGLOBIN (test code = 1003) 12.7 G/DL HEMATOCRIT (test code = 1004) 38.0 % MCV (test code = 1005) 88.6 fL MCH (test code = 1006) 29.6 PG MCHC (test code = 1007) 33.4 G/DL RDW (test code = 1038) 12.7 % NEUTROPHILS (test code = 1008) 65.8 % LYMPHOCYTES (test code = 1010) 25.6 % MONOCYTES (test code = 1011) 4.7 % EOSINOPHILS (test code = 1012) 3.0 % BASOPHILS (test code = 1013) 0.7 % IMMATURE GRANULOCYTES (test code = 1036) 0.2 % NUCLEATED RBCS (test code = 1065) 0.0 /100WBC'S PLATELET COUNT (test code = 1015) 372 K/UL ABSOLUTE NEUTROPHILS (test c ode = 1066) 5.72 K/UL ABSOLUTE LYMPHOCYTES (test c ode = 1067) 2.23 K/UL ABSOLUTE MONOCYTES (test cod e = 1068) 0.41 K/UL ABSOLUTE EOSINOPHILS (test c ode = 1040) 0.26 K/UL ABSOLUTE BASOPHILS (test cod e = 1069) 0.06 K/UL ABS IMMATURE GRANULOCYTES (t est code = 1020) 0.02 K/UL ABS NUCLEATED RBCS (test cod e = 36265) 0.00 K/UL Oj LiangVITAMIN D, 25 [id number] 00:00:00* Test Item Value Reference Range Interpretation Comme nts VITAMIN D, 25 OH (test code = 4958) 32 NG/ML Oj LiangTSH, THIRD [id number] 00:00:00* Test Item Value Reference Range Interpretation Comme nts TSH, THIRD GENERATION (test code = 2821) 0.851 UIU/ML Oj LiangHEMOGLOBIN [id number] 00:00:00* Test Item Value Reference Range Interpretation Comme nts HEMOGLOBIN A1c (test code = 63313) 5.7 % Oj LiangPAP TEST, THINPREP, [id number] 00:00:00* Test Item Value Reference Range Interpretation Comme [facility] SOURCE: (test code = 8001) Cervical/Endo cervi heather SLIDES: (test code = 8011) 1 LMP: (test code = 8021) 09/02/2021 SPECIMEN ADEQUACY: (test code = 94801) (NOTE) INTERPRETATION: (test code = 14474) NILM/NO EPITH. ABNORMALITY;SEE BELOW CAMPAIGN MANAGER: (test code = 8101) MAGEN Beltran(ASCP) PATHOLOGIST INTERPRETATION BY: (test code = 8122) Kiko Gaytan LOCATION: (test code = 61689) (NOTE) CPT: (test code = 8140) (NOTE) Oj LiangPAP TEST, THINPREP, [id number] 00:00:00* Test Item Value Reference Range Interpretation Comme [facility] SOURCE: (test code = 8001) Cervical/Endo cervi heather SLIDES: (test code = 8011) 1 LMP: (test code = 8021) 09/02/2021 SPECIMEN ADEQUACY: (test code = 98943) (NOTE) INTERPRETATION: (test code = 25669) NILM/NO EPITH. ABNORMALITY;SEE BELOW CAMPAIGN MANAGER: (test code = 8101) MAGEN Beltran(ASCP) PATHOLOGIST INTERPRETATION BY: (test code = 8122) Kiko Gaytan LOCATION: (test code = 37704) (NOTE) CPT: (test code = 8140) (NOTE) Oj LiangPAP TEST, THINPREP, [id number] 00:00:00* Test Item Value Reference Range Interpretation Comme nts SOURCE: (test code = 8001) Cervical/Endo cervi heather SLIDES: (test code = 8011) 1 LMP: (test code = 8021) 09/02/2021 SPECIMEN ADEQUACY: (test code = 22448) (NOTE) INTERPRETATION: (test code = 54290) NILM/NO EPITH. ABNORMALITY;SEE BELOW CAMPAIGN MANAGER: (test code = 8101) MAGEN Beltran(ASCP) PATHOLOGIST INTERPRETATION BY: (test code = 8122) Kiko Gaytan LOCATION: (test code = 93070) (NOTE) CPT: (test code = 8140) (NOTE) Oj LiangVAGINAL PATHOGENS DNA [id number] 09:48:11* Test Item Value Reference Range Interpretation Comme nts AMANDA SPECIES (test code = 15192) NEGATIVE NEGATIVE G. VAGINALIS (test code = 04116) POSITIVE NEGATIVE A T. VAGINALIS (test code = 86338) NEGATIVE NEGATIVE HIV 1/2 4TH GEN, RFLX [id number] 03:19:16* Test Item Value Reference Range Interpretation Comme nts HIV 1/2 4TH GEN, RFLX CONF ( test code = 3514) NON-REACTIVE NON-REACTIVE HEPATITIS PANEL, [id number] 03:19:16* Test Item Value Reference Range Interpretation Comments HEPATITIS A TOTAL AB (test code = 2725) REACTIVE NON-REACTIVE A HEPATITIS B SURF AG (test code = 2739) NON-REACTIVE NON-REACTIVE HEP B CORE TOTAL AB (test code = 2729) NON-REACTIVE NON-REACTIVE HEPATITIS B SURFACE AB (test code = 2737) EQUIVOCAL NON-REACTIVE A HEPATITIS C ANTIBODY (test code = 4675) NON-REACTIVE NON-REACTIVE INTERPRETATION HEPATITIS A: (test code = 2552) (NOTE) Hepatitis A sero logy consistent with past exposure or previousvaccination to hepatitis A virus. No evidence of current acutehepatitis A infection. INTERPRETATION HEPATITIS B: (test code = 50697) (NOTE) Equivocal hepati tis B surface antibody with non-reactivehepatitis B surface antigen and hepatitis B core total antibody.Hepatitis B serology shows no evidence of past exposure to or currentinfection with hepatitis B virus. This may represent early responseto hepatitis B vaccination or remote prior vaccination. The immunestatus of the individual should be further assessed by consideringother factors, such as clinical status, follow-up testing, associatedrisk factors, and the use of additional diagnostic information. INTERPRETATION HEPATITIS C: (test code = 04580) (NOTE) Hepatitis C sero logy shows no evidence of exposure to hepatitisC virus at this time. It can take up to 12 months after exposure tothe hepatitis C virus for antibodies to become detectable in the blood in certain patients. HEPATITIS A [id number] 03:19:16* Test Item Value Reference Range Interpretation Comme nts HEPATITIS A IgM (test code = 2728) NON-REACTIVE NON-REACTIVE UNLESS OTHERW ISE INDICATED, ALL TESTING PERFORMED [facility] [employer] [facility] [address] [place] [address] DOOR REPAIRMAN: MOIRA AGUILAR M.D. CLIA NUMBER [id number] [facility] [place]. [id number] GC AND CHLAMYDIA AMPLIFIED, [id number] 00:00:00* Test Item Value Reference Range Interpretation Comme nts GONORRHEA, TMA (test code = 29964) NEGATIVE CHLAMYDIA, TMA (test code = 57817) NEGATIVE Oj Moses AustinHIV AB/AG COMBO RFLX [id number] 00:00:00* Test Item Value Reference Range Interpretation Comme nts HIV 1/2 4TH GEN, RFLX CONF ( test code = 3514) NON-REACTIVE Oj Moses AustinHEPATITIS PROFILE (A,B,C)2021-09-15 00:00:00* Test Item Value Reference Range Interpretation Comme nts HEPATITIS A TOTAL AB (test c ode = 2725) REACTIVE HEPATITIS B SURF AG (test co de = 2739) NON-REACTIVE HEP B CORE TOTAL AB (test co de = 2729) NON-REACTIVE HEPATITIS B SURFACE AB (test code = 2737) EQUIVOCAL HEPATITIS C ANTIBODY (test c ode = 4675) NON-REACTIVE INTERPRETATION HEPATITIS A: (test code = 2552) (NOTE) INTERPRETATION HEPATITIS B: (test code = 98503) (NOTE) INTERPRETATION HEPATITIS C: (test code = 24824) (NOTE) Oj F AustinHEPATITIS A IgM [REFLEX]2021-09-15 00:00:00* Test Item Value Reference Range Interpretation Comme nts HEPATITIS A IgM (test code = 2728) NON-REACTIVE Oj Moses AustinVAGINAL PATHOGENS DNA [id number] 00:00:00* Test Item Value Reference Range Interpretation Comme nts AMANDA SPECIES (test code = ) NEGATIVE G. VAGINALIS (test code = ) POSITIVE T. VAGINALIS (test code = ) NEGATIVE Oj Moses AustinGC AND CHLAMYDIA AMPLIFIED, [id number] 00:00:00* Test Item Value Reference Range Interpretation Comme nts GONORRHEA, TMA (test code = 44060) NEGATIVE CHLAMYDIA, TMA (test code = 01663) NEGATIVE Oj Moses AustinHIV AB/AG COMBO RFLX [id number] 00:00:00* Test Item Value Reference Range Interpretation Comme nts HIV 1/2 4TH GEN, RFLX CONF ( test code = 3514) NON-REACTIVE Oj Moses AustinHEPATITIS PROFILE (A,B,C)2021-09-15 00:00:00* Test Item Value Reference Range Interpretation Comme nts HEPATITIS A TOTAL AB (test c ode = 2725) REACTIVE HEPATITIS B SURF AG (test co de = 2739) NON-REACTIVE HEP B CORE TOTAL AB (test co de = 2729) NON-REACTIVE HEPATITIS B SURFACE AB (test code = 2737) EQUIVOCAL HEPATITIS C ANTIBODY (test c ode = 4675) NON-REACTIVE INTERPRETATION HEPATITIS A: (test code = 2552) (NOTE) INTERPRETATION HEPATITIS B: (test code = 99651) (NOTE) INTERPRETATION HEPATITIS C: (test code = 77844) (NOTE) Oj LiangHEPATITIS A IgM [REFLEX]2021-09-15 00:00:00* Test Item Value Reference Range Interpretation Comme nts HEPATITIS A IgM (test code = 2728) NON-REACTIVE Oj Moses AustinVAGINAL PATHOGENS DNA [id number] 00:00:00* Test Item Value Reference Range Interpretation Comme nts AMANDA SPECIES (test code = ) NEGATIVE G. VAGINALIS (test code = 18447) POSITIVE T. VAGINALIS (test code = 68142) NEGATIVE Oj Moses AustinGC AND CHLAMYDIA AMPLIFIED, [id number] 00:00:00* Test Item Value Reference Range Interpretation Comme nts GONORRHEA, TMA (test code = 98147) NEGATIVE CHLAMYDIA, TMA (test code = 00475) NEGATIVE Oj LiangHIV AB/AG COMBO RFLX [id number] 00:00:00* Test Item Value Reference Range Interpretation Comme nts HIV 1/2 4TH GEN, RFLX CONF ( test code = 3514) NON-REACTIVE Oj Moses AustinHEPATITIS PROFILE (A,B,C)2021-09-15 00:00:00* Test Item Value Reference Range Interpretation Comme nts HEPATITIS A TOTAL AB (test c ode = 2725) REACTIVE HEPATITIS B SURF AG (test co de = 2739) NON-REACTIVE HEP B CORE TOTAL AB (test co de = 2729) NON-REACTIVE HEPATITIS B SURFACE AB (test code = 2737) EQUIVOCAL HEPATITIS C ANTIBODY (test c ode = 2181) NON-REACTIVE INTERPRETATION HEPATITIS A: (test code = 2552) (NOTE) INTERPRETATION HEPATITIS B: (test code = 57773) (NOTE) INTERPRETATION HEPATITIS C: (test code = 38683) (NOTE) Oj LiangHEPATITIS A IgM [REFLEX]2021-09-15 00:00:00* Test Item Value Reference Range Interpretation Comme nts HEPATITIS A IgM (test code = 2728) NON-REACTIVE Oj Moses AustinVAGINAL PATHOGENS DNA [id number] 00:00:00* Test Item Value Reference Range Interpretation Comme nts AMANDA SPECIES (test code = 18602) NEGATIVE G. VAGINALIS (test code = 28880) POSITIVE T. VAGINALIS (test code = 07145) NEGATIVE Oj Moses AustinRPR REFLEX TO T. PALLIDUM - [id number] 22:40:41* Test Item Value Reference Range Interpretation Comme nts RPR (test code = 17140) NON-REACTIVE NON-REACTIVE RPR TITER (test code = 3500) NOT INDIC. TITER NOT INDIC. RPR REFLEX TO [id number] 00:00:00* Test Item Value Reference Range Interpretation Comme nts RPR (test code = 38134) NON-REACTIVE RPR TITER (test code = 3500) NOT INDIC. TITER Oj Moses AustinRPR REFLEX TO [id number] 00:00:00* Test Item Value Reference Range Interpretation Comme nts RPR (test code = 96245) NON-REACTIVE RPR TITER (test code = 3500) NOT INDIC. TITER Oj LiangRPR REFLEX TO [id number] 00:00:00* Test Item Value Reference Range Interpretation Comme nts RPR (test code = 59250) NON-REACTIVE RPR TITER (test code = 3500) NOT INDIC. TITER Oj LiangMUMPS IgG AND [id number] 23:04:22* Test Item Value Reference Range Interpretation Comme nts MUMPS VIRUS IgG (test code = 50164) <5.0 AU/mL INTERPRETIVE INF ORMATION: Mumps Ab, IgG by ELFEGO 8.9 AU/mL or less .... Negative - No significant level of detectable IgG mumps virus antibody 9.0-10.9 AU/mL ....... Equivocal - Repeat testing in 10-14 days may be helpful 11.0 AU/mL or greater: Positive - IgG antibody to mumps virus detected, which may indicate a current or past exposure/ immunization to mumps virus. The best evidence for current infection is a significant change on two appropriately timed specimens, where both tests are done in the same laboratory at the same time. TESTING PERFORMED AT [facility], [facility] [address], [place] [address] [place]. [id number] CLIA NO. [id number] MUMPS VIRUS IgM (test code = 4587) 0.29 IV See_Comment INTERPRETIVE INFORMATION: Mumps Virus Antibody, IgM 0.79 IV or less: Negative - No significant level of detectable IgM antibody to mumps virus. 0.80 - 1.20 IV: Equivocal - Borderline levels of IgM antibody to mumps virus. Repeat testing in 10-14 days may be helpful. 1.21 IV or greater: Positive - Presence of IgM antibody to mumps virus detected, which may indicate a current or recent infection. However, low levels of IgM antibody may occasionally persist for more than 12 months post-infection or immunization. TESTING PERFORMED AT [facility], [facility] [address], [place] [address] [place] [id number] CLIA NO. [id number] [Automated message] The system which generated this result transmitted reference range: <=0.79. The reference range was not used to interpret this result as normal/abnormal. VARICELLA ZOSTER [id number] 15:39:26* Test Item Value Reference Range Interpretation Comme nts VARICELLA ZOSTER IgG (test code = 15486) 59 INDEX SEE BELOW L INTERPRETATI ON VZV IgG NEGATIVE . . . . . . . . . . . . INDEX <135 EQUIVOCAL. . . . . . . . . . . . INDEX 135-164 NOTE: CONSIDER RETESTING IN A CLINICALLY SUITABLE PERIOD OF TIME, NO SOONER THAN 1-2 WEEKS. POSITIVE . . . . . . . . . . . . INDEX >=165 RUBEOLA IgG [id number] 15:39:26* Test Item Value Reference Range Interpretation Comme nts RUBEOLA IgG ANTIBODY (test code = 54746) <5.0 AU/ML SEE BELOW L INTERPRETATION R UBEOLA IgG NEGATIVE . . . . . . . . . . . . AU/ML <13.5 EQUIVOCAL. . . . . . . . . . . . AU/ML 13.5-16.4 NOTE: CONSIDER RETESTING IN A CLINICALLY SUITABLE PERIOD OF TIME, NO SOONER THAN 1-2 WEEKS. POSITIVE . . . . . . . . . . . . AU/ML >=16.5 VARICELLA ZOSTER [id number] 00:00:00* Test Item Value Reference Range Interpretation Comme nts VARICELLA ZOSTER IgG (test c ode = 03960) 59 INDEX Oj Moses AustinRUBEOLA IgG [id number] 00:00:00* Test Item Value Reference Range Interpretation Comme nts RUBEOLA IgG ANTIBODY (test c ode = 80116) <5.0 AU/ML Oj F AustinMUMPS IgG AND [id number] 00:00:00* Test Item Value Reference Range Interpretation Comme nts MUMPS VIRUS IgG (test code = 24906) <5.0 AU/mL MUMPS VIRUS IgM (test code = 4587) 0.29 IV Oj F AustinVARICELLA ZOSTER [id number] 00:00:00* Test Item Value Reference Range Interpretation Comme nts VARICELLA ZOSTER IgG (test c ode = 86079) 59 INDEX Oj F AustinRUBEOLA IgG [id number] 00:00:00* Test Item Value Reference Range Interpretation Comme nts RUBEOLA IgG ANTIBODY (test c ode = 92907) <5.0 AU/ML Oj F AustinMUMPS IgG AND [id number] 00:00:00* Test Item Value Reference Range Interpretation Comme nts MUMPS VIRUS IgG (test code = 29430) <5.0 AU/mL MUMPS VIRUS IgM (test code = 4587) 0.29 IV Oj LiangVARICELLA ZOSTER [id number] 00:00:00* Test Item Value Reference Range Interpretation Comme nts VARICELLA ZOSTER IgG (test c ode = 30075) 59 INDEX Oj Moses AustinRUBEOLA IgG [id number] 00:00:00* Test Item Value Reference Range Interpretation Comme nts RUBEOLA IgG ANTIBODY (test c ode = 62381) <5.0 AU/ML Oj LiangMUMPS IgG AND [id number] 00:00:00* Test Item Value Reference Range Interpretation Comme gayla MUMPS VIRUS IgG (test code = 97190) <5.0 AU/mL MUMPS VIRUS IgM (test code = 4587) 0.29 IV Oj LiangRUBELLA ANTIBODY [id number] 05:44:28* Test Item Value Reference Range Interpretation Comme nts RUBELLA ANTIBODY SCREEN (test code = 4600) 18 IU/ML SEE BELOW INTERPRETATION R UBELLA IgG NON-REACTIVE/NON-IMMUNE . . . . . . . IU/ML <10 REACTIVE/IMMUNE . . . . . . . . . . . IU/ML >=10 RUBELLA IgG INTERP (test code = 14786) REACTIVE REACTIVE UNLESS OTHER HARRISON INDICATED, [facility] [address] [place] [address] DOOR REPAIRMAN: MOIRA AGUILAR M.D. CLIA NUMBER [id number] [facility] [place]. [id number] HEPATITIS Bs AB [id number] 04:24:57* Test Item Value Reference Range Interpretation Comme nts HEPATITIS Bs AB INTERP (test code = 2738) REACTIVE SEE BELOW HEPATITIS Bs AB QUANT (test code = 24152) 12.40 MIU/ML SEE BELOW INTERPRETATI ON INDEX NON-REACTIVE: Patient does not show MIU/ML <8.50 immunity to hepatitis B virus (HBV).EQUIVOCAL: Specimen repeatedly tested MIU/ML 8.50-11.49 in equivocal range. Immune status should be further assessed with clinical history, follow-up testing, risk factors, and additional diagnostic information.REACTIVE: Immune to hepatitis B virus. MIU/ML >=11.50Duration of Immunity: Any positive antibody level measured 1-2 months after vaccination is considered protective. Low level antibodies (10-100) may decline to undetectable within 1-2 years, high level (>100) by 5-10 years. However, immune protection remains intact indefinitely for those with initial antibody response. (CDC Guidelines, July 2005). RUBELLA ANTIBODY [id number] 00:00:00* Test Item Value Reference Range Interpretation Comme nts RUBELLA ANTIBODY SCREEN (donna t code = 4600) 18 IU/ML RUBELLA IgG INTERP (test cod e = 97011) REACTIVE Oj Moses AustinHEPATITIS Bs AB [id number] 00:00:00* Test Item Value Reference Range Interpretation Comme nts HEPATITIS Bs AB INTERP (test code = 2738) REACTIVE HEPATITIS Bs AB QUANT (test code = 72169) 12.40 MIU/ML Oj Moses AustinRUBELLA ANTIBODY [id number] 00:00:00* Test Item Value Reference Range Interpretation Comme nts RUBELLA ANTIBODY SCREEN (donna t code = 4600) 18 IU/ML RUBELLA IgG INTERP (test cod e = 78156) REACTIVE Oj Moses AustinHEPATITIS Bs AB [id number] 00:00:00* Test Item Value Reference Range Interpretation Comme nts HEPATITIS Bs AB INTERP (test code = 2738) REACTIVE HEPATITIS Bs AB QUANT (test code = 24008) 12.40 MIU/ML Oj Moses AustinRUBELLA ANTIBODY [id number] 00:00:00* Test Item Value Reference Range Interpretation Comme nts RUBELLA ANTIBODY SCREEN (donna t code = 4600) 18 IU/ML RUBELLA IgG INTERP (test cod e = 89815) REACTIVE Jo F AustinHEPATITIS Bs AB [id number] 00:00:00* Test Item Value Reference Range Interpretation Comme nts HEPATITIS Bs AB INTERP (test code = 2738) REACTIVE HEPATITIS Bs AB QUANT (test code = 33859) 12.40 MIU/ML Oj F AustinVAGINAL PATHOGENS DNA [id number] 21:15:22* Test Item Value Reference Range Interpretation Comme nts AMANDA SPECIES (test code = ) NEGATIVE NEGATIVE G. VAGINALIS (test code = 36072) POSITIVE NEGATIVE A T. VAGINALIS (test code = 60958) NEGATIVE NEGATIVE UNLESS OTHERWISE INDICATED, ALL TESTING [facility]FOR[facility] [address] [place] [address] DOOR REPAIRMAN: MOIRA AGUILAR M.D. IA NUMBER [id number] [facility] [place]. [id number] VAGINAL PATHOGENS DNA [id number] 00:00:00* Test Item Value Reference Range Interpretation Comme nts AMANDA SPECIES (test code = 54936) NEGATIVE G. VAGINALIS (test code = 02747) POSITIVE T. VAGINALIS (test code = 78186) NEGATIVE Oj Moses AustinVAGINAL PATHOGENS DNA [id number] 00:00:00* Test Item Value Reference Range Interpretation Comme nts AMANDA SPECIES (test code = 91143) NEGATIVE G. VAGINALIS (test code = 12904) POSITIVE T. VAGINALIS (test code = 81112) NEGATIVE Oj Moses AustinVAGINAL PATHOGENS DNA [id number] 00:00:00* Test Item Value Reference Range Interpretation Comme nts AMANDA SPECIES (test code = ) NEGATIVE G. VAGINALIS (test code = 51348) POSITIVE T. VAGINALIS (test code = 71134) NEGATIVE Oj Najera, [id number] 08:35:14SPECIMEN NUMBER: [id number] CULTURE, URINE SPECIMEN NUMBER: [id number] SPECIMEN COMMENT: URINE SOURCE: URINE REPORT STATUS: FINAL FINAL REPORT: 03/07/2021 50-100,000 CFU/ML UROGENITAL LALO PRESENT NO COMMON PATHOGENSCULTCLEMENTE, [id number] 00:00:00* Test Item Value Reference Range Interpretation Comme nts CULTURE, URINE (test code = 89005) SPECIMEN NUMBER: [id number] Oj SchwartzLTCLEMENTE, [id number] 00:00:00* Test Item Value Reference Range Interpretation Comme nts CULTURE, URINE (test code = 08200) SPECIMEN NUMBER: [id number] Oj SchwartzLTCLEMENTE, [id number] 00:00:00* Test Item Value Reference Range Interpretation Comme nts CULTURE, URINE (test code = 43131) SPECIMEN NUMBER: [id number] Oj Moses AustinVAGINAL PATHOGENS DNA [id number] 14:35:22* Test Item Value Reference Range Interpretation Comme nts AMANDA SPECIES (test code = 09421) NEGATIVE NEGATIVE G. VAGINALIS (test code = 37540) NEGATIVE NEGATIVE T. VAGINALIS (test code = 53393) NEGATIVE NEGATIVE UNLESS OTHERWISE INDICATED, ALL TEST[facility] [place], [facility]. [address] [place] [address] DOOR REPAIRMAN: MOIRA AGUILAR M.D. CLIA NUMBER [id number] [facility] [place] [place]. [id number] VAGINAL PATHOGENS DNA [id number] 00:00:00* Test Item Value Reference Range Interpretation Comme nts AMANDA SPECIES (test code = 84404) NEGATIVE G. VAGINALIS (test code = 82265) NEGATIVE T. VAGINALIS (test code = 67891) NEGATIVE Oj Moses AustinVAGINAL PATHOGENS DNA [id number] 00:00:00* Test Item Value Reference Range Interpretation Comme nts AMANDA SPECIES (test code = 23001) NEGATIVE G. VAGINALIS (test code = 03074) NEGATIVE T. VAGINALIS (test code = 90256) NEGATIVE Oj Moses AustinVAGINAL PATHOGENS DNA [id number] 00:00:00* Test Item Value Reference Range Interpretation Comme nts AMANDA SPECIES (test code = 65598) NEGATIVE G. VAGINALIS (test code = 04929) NEGATIVE T. VAGINALIS (test code = 90787) NEGATIVE Oj Moses AustinVAGINAL PATHOGENS DNA [id number] 00:00:00* Test Item Value Reference Range Interpretation Comme nts AMANDA SPECIES (test code = 98463) NEGATIVE G. VAGINALIS (test code = 09068) NEGATIVE T. VAGINALIS (test code = 41796) NEGATIVE Oj Moses AustinRPR REFLEX TO [id number] 00:00:00* Test Item Value Reference Range Interpretation Comme nts RPR (test code = 35530) NON-REACTIVE RPR TITER (test code = 3500) NOT INDIC. TITER Oj LiangHIV AB/AG COMBO RFLX [id number] 00:00:00* Test Item Value Reference Range Interpretation Comme nts HIV 1/2 4TH GEN, RFLX CONF ( test code = 3514) NON-REACTIVE Oj Moses AustinHEPATITIS PROFILE (A,B,C)2020-12-17 00:00:00* Test Item Value Reference Range Interpretation Comme nts HEPATITIS A TOTAL AB (test c ode = 2725) REACTIVE HEPATITIS B SURF AG (test co de = 2739) NON-REACTIVE HEP B CORE TOTAL AB (test co de = 2729) NON-REACTIVE HEPATITIS B SURFACE AB (test code = 2737) REACTIVE HEPATITIS C ANTIBODY (test c ode = 5175) NON-REACTIVE INTERPRETATION HEPATITIS A: (test code = 2552) (NOTE) INTERPRETATION HEPATITIS B: (test code = 67504) (NOTE) INTERPRETATION HEPATITIS C: (test code = 30276) (NOTE) Oj LiangHCG, [id number] 00:00:00* Test Item Value Reference Range Interpretation Comme nts HCG, QUANTITATIVE (test code = 2506) <5 MIU/ML Oj LiangHEPATITIS A IgM [REFLEX]2020-12-17 00:00:00* Test Item Value Reference Range Interpretation Comme nts HEPATITIS A IgM (test code = 2728) NON-REACTIVE Oj LiangGC AND CHLAMYDIA, AMPLIFIED, [id number] 00:00:00* Test Item Value Reference Range Interpretation Comme nts GONORRHEA, NAAT (test code = 97852) NEGATIVE CHLAMYDIA, NAAT (test code = 69559) NEGATIVE Oj LiangVAGINAL PATHOGENS DNA [id number] 00:00:00* Test Item Value Reference Range Interpretation Comme nts AMANDA SPECIES (test code = 15553) NEGATIVE G. VAGINALIS (test code = 11446) NEGATIVE T. VAGINALIS (test code = 74642) NEGATIVE Oj LiangRPR REFLEX TO [id number] 00:00:00* Test Item Value Reference Range Interpretation Comme nts RPR (test code = 68095) NON-REACTIVE RPR TITER (test code = 3500) NOT INDIC. TITER Oj LiangHIV AB/AG COMBO RFLX [id number] 00:00:00* Test Item Value Reference Range Interpretation Comme nts HIV 1/2 4TH GEN, RFLX CONF ( test code = 3514) NON-REACTIVE Oj LiangHEPATITIS PROFILE (A,B,C)2020-12-17 00:00:00* Test Item Value Reference Range Interpretation Comme nts HEPATITIS A TOTAL AB (test c ode = 2725) REACTIVE HEPATITIS B SURF AG (test co de = 2739) NON-REACTIVE HEP B CORE TOTAL AB (test co de = 2729) NON-REACTIVE HEPATITIS B SURFACE AB (test code = 2737) REACTIVE HEPATITIS C ANTIBODY (test c ode = 3759) NON-REACTIVE INTERPRETATION HEPATITIS A: (test code = 2552) (NOTE) INTERPRETATION HEPATITIS B: (test code = 97578) (NOTE) INTERPRETATION HEPATITIS C: (test code = 89087) (NOTE) Oj LiangHCG, [id number] 00:00:00* Test Item Value Reference Range Interpretation Comme nts HCG, QUANTITATIVE (test code = 2506) <5 MIU/ML Oj LiangHEPATITIS A IgM [REFLEX]2020-12-17 00:00:00* Test Item Value Reference Range Interpretation Comme nts HEPATITIS A IgM (test code = 2728) NON-REACTIVE Oj Moses AustinGC AND CHLAMYDIA, AMPLIFIED, [id number] 00:00:00* Test Item Value Reference Range Interpretation Comme nts GONORRHEA, NAAT (test code = 62103) NEGATIVE CHLAMYDIA, NAAT (test code = 69887) NEGATIVE Oj LiangVAGINAL PATHOGENS DNA [id number] 00:00:00* Test Item Value Reference Range Interpretation Comme nts AMANDA SPECIES (test code = 77899) NEGATIVE G. VAGINALIS (test code = 01883) NEGATIVE T. VAGINALIS (test code = 65066) NEGATIVE Oj Moses AustinRPR REFLEX TO [id number] 00:00:00* Test Item Value Reference Range Interpretation Comme nts RPR (test code = 74080) NON-REACTIVE RPR TITER (test code = 3500) NOT INDIC. TITER Oj Moses AustinHIV AB/AG COMBO RFLX [id number] 00:00:00* Test Item Value Reference Range Interpretation Comme nts HIV 1/2 4TH GEN, RFLX CONF ( test code = 3514) NON-REACTIVE Oj Moses AustinHEPATITIS PROFILE (A,B,C)2020-12-17 00:00:00* Test Item Value Reference Range Interpretation Comme nts HEPATITIS A TOTAL AB (test c ode = 2725) REACTIVE HEPATITIS B SURF AG (test co de = 8999) NON-REACTIVE HEP B CORE TOTAL AB (test co de = 1364) NON-REACTIVE HEPATITIS B SURFACE AB (test code = 2737) REACTIVE HEPATITIS C ANTIBODY (test c ode = 1133) NON-REACTIVE INTERPRETATION HEPATITIS A: (test code = 2552) (NOTE) INTERPRETATION HEPATITIS B: (test code = 15729) (NOTE) INTERPRETATION HEPATITIS C: (test code = 46725) (NOTE) Oj LiagnHCG, [id number] 00:00:00* Test Item Value Reference Range Interpretation Comme nts HCG, QUANTITATIVE (test code = 2506) <5 MIU/ML Oj LiangHEPATITIS A IgM [REFLEX]2020-12-17 00:00:00* Test Item Value Reference Range Interpretation Comme nts HEPATITIS A IgM (test code = 2728) NON-REACTIVE Oj LiangGC AND CHLAMYDIA, AMPLIFIED, [id number] 00:00:00* Test Item Value Reference Range Interpretation Comme nts GONORRHEA, NAAT (test code = 77903) NEGATIVE CHLAMYDIA, NAAT (test code = 89672) NEGATIVE Oj LiangSARS-CoV-2 (COVID-19) by RT-PCR (HIGH RISK)2020-11-13 00:00:00* Test Item Value Reference Range Interpretation Comme nts SARS-CoV-2 INTERPRETATION (t est code = 69763) NEGATIVE SOURCE (test code = 43326) NOT SPECIFIED Oj Moses [id number] (COVID-19) by RT-PCR (HIGH RISK)2020-11-13 00:00:00* Test Item Value Reference Range Interpretation Comme nts SARS-CoV-2 INTERPRETATION (t est code = 34219) NEGATIVE SOURCE (test code = 28312) NOT SPECIFIED Oj Moses [id number] (COVID-19) by RT-PCR (HIGH RISK)2020-11-13 00:00:00* Test Item Value Reference Range Interpretation Comme nts SARS-CoV-2 INTERPRETATION (t est code = 32756) NEGATIVE SOURCE (test code = 05499) NOT SPECIFIED Oj LiangHIV AB/AG COMBO RFLX [id number] 00:00:00* Test Item Value Reference Range Interpretation Comme nts HIV 1/2 4TH GEN, RFLX CONF ( test code = 3514) NON-REACTIVE Oj Moses AustinRPR REFLEX TO [id number] 00:00:00* Test Item Value Reference Range Interpretation Comme nts RPR (test code = 77768) NON-REACTIVE RPR TITER (test code = 3500) NOT INDIC. TITER Oj LiangHEPATITIS PROFILE (A,B,C)2020-05-22 00:00:00* Test Item Value Reference Range Interpretation Comme nts HEPATITIS A TOTAL AB (test c ode = 2725) REACTIVE HEPATITIS B SURF AG (test co de = 2739) NON-REACTIVE HEP B CORE TOTAL AB (test co de = 2729) NON-REACTIVE HEPATITIS B SURFACE AB (test code = 2737) REACTIVE HEPATITIS C ANTIBODY (test c ode = 4675) NON-REACTIVE INTERPRETATION HEPATITIS A: (test code = 2552) (NOTE) INTERPRETATION HEPATITIS B: (test code = 35167) (NOTE) INTERPRETATION HEPATITIS C: (test code = 91790) (NOTE) Oj Moses AustinGC AND CHLAMYDIA, AMPLIFIED, [id number] 00:00:00* Test Item Value Reference Range Interpretation Comme nts GONORRHEA, NAAT (test code = 57254) NEGATIVE CHLAMYDIA, NAAT (test code = 84902) NEGATIVE Oj LiangHEPATITIS A IgM [REFLEX]2020-05-22 00:00:00* Test Item Value Reference Range Interpretation Comme nts HEPATITIS A IgM (test code = 2728) NON-REACTIVE Oj Moses AustinVAGINAL PATHOGENS DNA [id number] 00:00:00* Test Item Value Reference Range Interpretation Comme nts AMANDA SPECIES (test code = 70842) NEGATIVE G. VAGINALIS (test code = 59295) POSITIVE T. VAGINALIS (test code = 66415) NEGATIVE Oj Moses AustinHIV AB/AG COMBO RFLX [id number] 00:00:00* Test Item Value Reference Range Interpretation Comme nts HIV 1/2 4TH GEN, RFLX CONF ( test code = 3514) NON-REACTIVE Oj Moses AustinRPR REFLEX TO [id number] 00:00:00* Test Item Value Reference Range Interpretation Comme nts RPR (test code = 03291) NON-REACTIVE RPR TITER (test code = 3500) NOT INDIC. TITER Oj Moses AustinHEPATITIS PROFILE (A,B,C)2020-05-22 00:00:00* Test Item Value Reference Range Interpretation Comme nts HEPATITIS A TOTAL AB (test c ode = 2725) REACTIVE HEPATITIS B SURF AG (test co de = 2739) NON-REACTIVE HEP B CORE TOTAL AB (test co de = 2729) NON-REACTIVE HEPATITIS B SURFACE AB (test code = 2737) REACTIVE HEPATITIS C ANTIBODY (test c ode = 4675) NON-REACTIVE INTERPRETATION HEPATITIS A: (test code = 2552) (NOTE) INTERPRETATION HEPATITIS B: (test code = 54728) (NOTE) INTERPRETATION HEPATITIS C: (test code = 21859) (NOTE) Oj LiangGC AND CHLAMYDIA, AMPLIFIED, [id number] 00:00:00* Test Item Value Reference Range Interpretation Comme nts GONORRHEA, NAAT (test code = 69789) NEGATIVE CHLAMYDIA, NAAT (test code = 00859) NEGATIVE Oj LiangHEPATITIS A IgM [REFLEX]2020-05-22 00:00:00* Test Item Value Reference Range Interpretation Comme nts HEPATITIS A IgM (test code = 2728) NON-REACTIVE Oj LiangVAGINAL PATHOGENS DNA [id number] 00:00:00* Test Item Value Reference Range Interpretation Comme nts AMANDA SPECIES (test code = 89200) NEGATIVE G. VAGINALIS (test code = 63900) POSITIVE T. VAGINALIS (test code = 75037) NEGATIVE Oj LiangHIV AB/AG COMBO RFLX [id number] 00:00:00* Test Item Value Reference Range Interpretation Comme nts HIV 1/2 4TH GEN, RFLX CONF ( test code = 3514) NON-REACTIVE Oj Moses AustinRPR REFLEX TO [id number] 00:00:00* Test Item Value Reference Range Interpretation Comme nts RPR (test code = 36804) NON-REACTIVE RPR TITER (test code = 3500) NOT INDIC. TITER Oj Moses AustinHEPATITIS PROFILE (A,B,C)2020-05-22 00:00:00* Test Item Value Reference Range Interpretation Comme nts HEPATITIS A TOTAL AB (test c ode = 2725) REACTIVE HEPATITIS B SURF AG (test co de = 2739) NON-REACTIVE HEP B CORE TOTAL AB (test co de = 2729) NON-REACTIVE HEPATITIS B SURFACE AB (test code = 2737) REACTIVE HEPATITIS C ANTIBODY (test c ode = 4627) NON-REACTIVE INTERPRETATION HEPATITIS A: (test code = 2552) (NOTE) INTERPRETATION HEPATITIS B: (test code = 53727) (NOTE) INTERPRETATION HEPATITIS C: (test code = 29641) (NOTE) Oj Moses AustinGC AND CHLAMYDIA, AMPLIFIED, [id number] 00:00:00* Test Item Value Reference Range Interpretation Comme nts GONORRHEA, NAAT (test code = 99896) NEGATIVE CHLAMYDIA, NAAT (test code = 25250) NEGATIVE Oj Moses AustinHEPATITIS A IgM [REFLEX]2020-05-22 00:00:00* Test Item Value Reference Range Interpretation Comme nts HEPATITIS A IgM (test code = 2728) NON-REACTIVE Oj F AustinVAGINAL PATHOGENS DNA [id number] 00:00:00* Test Item Value Reference Range Interpretation Comme nts AMANDA SPECIES (test code = 63097) NEGATIVE G. VAGINALIS (test code = 38037) POSITIVE T. VAGINALIS (test code = 66897) NEGATIVE Oj F [id number] (COVID-19) by RT-PCR (HIGH RISK)2020-04-15 00:00:00* Test Item Value Reference Range Interpretation Comme nts SARS-CoV-2 INTERPRETATION (test code = 17153) NEGATIVE SOURCE (test code = 80899) NASOPHARYNGEAL Oj F [id number] (COVID-19) by RT-PCR (HIGH RISK)2020-04-15 00:00:00* Test Item Value Reference Range Interpretation Comme nts SARS-CoV-2 INTERPRETATION (test code = 44198) NEGATIVE SOURCE (test code = 57129) NASOPHARYNGEAL Oj F [id number] (COVID-19) by RT-PCR (HIGH RISK)2020-04-15 00:00:00* Test Item Value Reference Range Interpretation Comme nts SARS-CoV-2 INTERPRETATION (test code = 65749) NEGATIVE SOURCE (test code = 37126) NASOPHARYNGEAL Oj F AustinGC AND CHLAMYDIA, AMPLIFIED, [id number] 00:00:00* Test Item Value Reference Range Interpretation Comme nts GONORRHEA, NAAT (test code = 36553) NEGATIVE CHLAMYDIA, NAAT (test code = 91498) NEGATIVE Oj F AustinGC AND CHLAMYDIA, AMPLIFIED, [id number] 00:00:00* Test Item Value Reference Range Interpretation Comme nts GONORRHEA, NAAT (test code = 50699) NEGATIVE CHLAMYDIA, NAAT (test code = 47977) NEGATIVE Oj F AustinGC AND CHLAMYDIA, AMPLIFIED, [id number] 00:00:00* Test Item Value Reference Range Interpretation Comme nts GONORRHEA, NAAT (test code = 39032) NEGATIVE CHLAMYDIA, NAAT (test code = 77938) NEGATIVE Oj F AustinVAGINAL PATHOGENS DNA [id number] 00:00:00* Test Item Value Reference Range Interpretation Comme nts AMANDA SPECIES (test code = 43065) NEGATIVE G. VAGINALIS (test code = 34928) NEGATIVE T. VAGINALIS (test code = 35215) NEGATIVE Oj F AustinVAGINAL PATHOGENS DNA [id number] 00:00:00* Test Item Value Reference Range Interpretation Comme nts AMANDA SPECIES (test code = 07712) NEGATIVE G. VAGINALIS (test code = 30066) NEGATIVE T. VAGINALIS (test code = 49740) NEGATIVE Oj F AustinVAGINAL PATHOGENS DNA [id number] 00:00:00* Test Item Value Reference Range Interpretation Comme nts AMANDA SPECIES (test code = 54261) NEGATIVE G. VAGINALIS (test code = 87975) NEGATIVE T. VAGINALIS (test code = 32479) NEGATIVE Oj F AustinVAGINAL PATHOGENS DNA [id number] 00:00:00* Test Item Value Reference Range Interpretation Comme nts AMANDA SPECIES (test code = 26340) NEGATIVE G. VAGINALIS (test code = 89164) NEGATIVE T. VAGINALIS (test code = 27958) NEGATIVE Oj F AustinGC AND CHLAMYDIA, AMPLIFIED, [id number] 00:00:00* Test Item Value Reference Range Interpretation Comme nts GONORRHEA, TMA (test code = 42050) NEGATIVE CHLAMYDIA, TMA (test code = 77356) POSITIVE Oj F AustinVAGINAL PATHOGENS DNA [id number] 00:00:00* Test Item Value Reference Range Interpretation Comme nts AMANDA SPECIES (test code = 09981) NEGATIVE G. VAGINALIS (test code = 06994) NEGATIVE T. VAGINALIS (test code = 45405) NEGATIVE Oj F AustinGC AND CHLAMYDIA, AMPLIFIED, [id number] 00:00:00* Test Item Value Reference Range Interpretation Comme nts GONORRHEA, TMA (test code = 91471) NEGATIVE CHLAMYDIA, TMA (test code = 04887) POSITIVE Oj F AustinVAGINAL PATHOGENS DNA [id number] 00:00:00* Test Item Value Reference Range Interpretation Comme nts AMANDA SPECIES (test code = ) NEGATIVE G. VAGINALIS (test code = 73939) NEGATIVE T. VAGINALIS (test code = 09473) NEGATIVE Oj F AustinGC AND CHLAMYDIA, AMPLIFIED, [id number] 00:00:00* Test Item Value Reference Range Interpretation Comme nts GONORRHEA, TMA (test code = 35826) NEGATIVE CHLAMYDIA, TMA (test code = 27484) POSITIVE Oj F AustinGC AND CHLAMYDIA, AMPLIFIED, [id number] 00:00:00* Test Item Value Reference Range Interpretation Comme nts GONORRHEA, TMA (test code = 85547) NEGATIVE CHLAMYDIA, TMA (test code = 93167) NEGATIVE Oj F AustinGC AND CHLAMYDIA, AMPLIFIED, [id number] 00:00:00* Test Item Value Reference Range Interpretation Comme nts GONORRHEA, TMA (test code = 10734) NEGATIVE CHLAMYDIA, TMA (test code = 88025) NEGATIVE Oj F AustinGC AND CHLAMYDIA, AMPLIFIED, [id number] 00:00:00* Test Item Value Reference Range Interpretation Comme nts GONORRHEA, TMA (test code = 51094) NEGATIVE CHLAMYDIA, TMA (test code = 45740) NEGATIVE Oj F AustinHEPATITIS PROFILE (A,B,C)2019-05-19 00:00:00* Test Item Value Reference Range Interpretation Comme nts HEPATITIS A TOTAL AB (test c ode = 2725) REACTIVE HEPATITIS B SURF AG (test co de = 2739) NON-REACTIVE HEP B CORE TOTAL AB (test co de = 2729) NON-REACTIVE HEPATITIS B SURFACE AB (test code = 2737) NON-REACTIVE HEPATITIS C ANTIBODY (test c ode = 4675) NON-REACTIVE INTERPRETATION HEPATITIS A: (test code = 2552) (NOTE) INTERPRETATION HEPATITIS B: (test code = 00965) (NOTE) INTERPRETATION HEPATITIS C: (test code = 50420) (NOTE) Oj Moses [id number] 00:00:00* Test Item Value Reference Range Interpretation Comme nts RPR RESULT (test code = 3501) NON-REACTIVE RPR TITER (test code = 3500) NOT INDIC. TITER Oj Moses AustinHEPATITIS A IgM [REFLEX]2019-05-19 00:00:00* Test Item Value Reference Range Interpretation Comme nts HEPATITIS A IgM (test code = 2728) NON-REACTIVE Oj Moses AustinHIV AB/AG COMBO RFLX [id number] 00:00:00* Test Item Value Reference Range Interpretation Comme nts HIV 1/2 4TH GEN, RFLX CONF ( test code = 3514) NON-REACTIVE Oj LiangVAGINAL PATHOGENS DNA [id number] 00:00:00* Test Item Value Reference Range Interpretation Comme nts AMANDA SPECIES (test code = 99836) NEGATIVE G. VAGINALIS (test code = 83930) POSITIVE T. VAGINALIS (test code = 78744) NEGATIVE Oj LiangHEPATITIS PROFILE (A,B,C)2019-05-19 00:00:00* Test Item Value Reference Range Interpretation Comme nts HEPATITIS A TOTAL AB (test c ode = 2725) REACTIVE HEPATITIS B SURF AG (test co de = 2739) NON-REACTIVE HEP B CORE TOTAL AB (test co de = 2729) NON-REACTIVE HEPATITIS B SURFACE AB (test code = 2737) NON-REACTIVE HEPATITIS C ANTIBODY (test c ode = 4675) NON-REACTIVE INTERPRETATION HEPATITIS A: (test code = 2552) (NOTE) INTERPRETATION HEPATITIS B: (test code = 82137) (NOTE) INTERPRETATION HEPATITIS C: (test code = 22840) (NOTE) Oj Moses [id number] 00:00:00* Test Item Value Reference Range Interpretation Comme nts RPR RESULT (test code = 3501) NON-REACTIVE RPR TITER (test code = 3500) NOT INDIC. TITER Oj LiangHEPATITIS A IgM [REFLEX]2019-05-19 00:00:00* Test Item Value Reference Range Interpretation Comme nts HEPATITIS A IgM (test code = 2728) NON-REACTIVE Oj Moses AustinVAGINAL PATHOGENS DNA [id number] 00:00:00* Test Item Value Reference Range Interpretation Comme nts AMANDA SPECIES (test code = ) NEGATIVE G. VAGINALIS (test code = 75740) POSITIVE T. VAGINALIS (test code = 59320) NEGATIVE Oj LiangHIV AB/AG COMBO RFLX [id number] 00:00:00* Test Item Value Reference Range Interpretation Comme nts HIV 1/2 4TH GEN, RFLX CONF ( test code = 3514) NON-REACTIVE Oj Moses AustinHEPATITIS PROFILE (A,B,C)2019-05-19 00:00:00* Test Item Value Reference Range Interpretation Comme nts HEPATITIS A TOTAL AB (test c ode = 2725) REACTIVE HEPATITIS B SURF AG (test co de = 2739) NON-REACTIVE HEP B CORE TOTAL AB (test co de = 2729) NON-REACTIVE HEPATITIS B SURFACE AB (test code = 2737) NON-REACTIVE HEPATITIS C ANTIBODY (test c ode = 4675) NON-REACTIVE INTERPRETATION HEPATITIS A: (test code = 2552) (NOTE) INTERPRETATION HEPATITIS B: (test code = 69683) (NOTE) INTERPRETATION HEPATITIS C: (test code = 16576) (NOTE) Oj Moses [id number] 00:00:00* Test Item Value Reference Range Interpretation Comme nts RPR RESULT (test code = 3501) NON-REACTIVE RPR TITER (test code = 3500) NOT INDIC. TITER Oj LiangHEPATITIS A IgM [REFLEX]2019-05-19 00:00:00* Test Item Value Reference Range Interpretation Comme nts HEPATITIS A IgM (test code = 2728) NON-REACTIVE Oj Moses AustinVAGINAL PATHOGENS DNA [id number] 00:00:00* Test Item Value Reference Range Interpretation Comme nts AMANDA SPECIES (test code = ) NEGATIVE G. VAGINALIS (test code = 83985) POSITIVE T. VAGINALIS (test code = 85333) NEGATIVE Oj Moses AustinHIV AB/AG COMBO RFLX [id number] 00:00:00* Test Item Value Reference Range Interpretation Comme nts HIV 1/2 4TH GEN, RFLX CONF ( test code = 3514) NON-REACTIVE Oj LiangPAP TEST, THINPREP, [id number] 00:00:00* Test Item Value Reference Range Interpretation Comme nts SOURCE: (test code = 8001) Cervical/Endocervical SLIDES: (test code = 8011) 1 LMP: (test code = 8021) 09/25/2018 SPECIMEN ADEQUACY: (test code = 42668) (NOTE) INTERPRETATION: (test code = 67310) NILM/NO EPITH. ABNORMALITY;SEE BELOW CAMPAIGN MANAGER: (test code = 8101) MAGEN Cerda(ASCP) LOCATION: (test code = 34993) (NOTE) CPT: (test code = 8140) (NOTE) Oj Aurelia LiangGC AND CHLAMYDIA AMPLIFIED, [id number] 00:00:00* Test Item Value Reference Range Interpretation Comme nts GONORRHEA, TMA (test code = 63469) NEGATIVE CHLAMYDIA, TMA (test code = 34611) NEGATIVE Oj Aurelia LiangPAP TEST, THINPREP, [id number] 00:00:00* Test Item Value Reference Range Interpretation Comme nts SOURCE: (test code = 8001) Cervical/Endocervical SLIDES: (test code = 8011) 1 LMP: (test code = 8021) 09/25/2018 SPECIMEN ADEQUACY: (test code = 28278) (NOTE) INTERPRETATION: (test code = 60226) NILM/NO EPITH. ABNORMALITY;SEE BELOW CAMPAIGN MANAGER: (test code = 8101) MAGEN Cerda(ASCP) LOCATION: (test code = 81550) (NOTE) CPT: (test code = 8140) (NOTE) Oj F AustinGC AND CHLAMYDIA AMPLIFIED, [id number] 00:00:00* Test Item Value Reference Range Interpretation Comme nts GONORRHEA, TMA (test code = 18663) NEGATIVE CHLAMYDIA, TMA (test code = 57690) NEGATIVE Oj F AustinPAP TEST, THINPREP, [id number] 00:00:00* Test Item Value Reference Range Interpretation Comme nts SOURCE: (test code = 8001) Cervical/Endocervical SLIDES: (test code = 8011) 1 LMP: (test code = 8021) 09/25/2018 SPECIMEN ADEQUACY: (test code = 05760) (NOTE) INTERPRETATION: (test code = 84738) NILM/NO EPITH. ABNORMALITY;SEE BELOW CAMPAIGN MANAGER: (test code = 8101) MAGEN Cerda(ASCP) LOCATION: (test code = 82304) (NOTE) CPT: (test code = 8140) (NOTE) Oj LiangGC AND CHLAMYDIA AMPLIFIED, [id number] 00:00:00* Test Item Value Reference Range Interpretation Comme nts GONORRHEA, TMA (test code = 04356) NEGATIVE CHLAMYDIA, TMA (test code = 98020) NEGATIVE Oj LiangHIV AB/AG COMBO RFLX [id number] 00:00:00* Test Item Value Reference Range Interpretation Comme nts HIV 1/2 4TH GEN, RFLX CONF ( test code = 3514) NON-REACTIVE Oj Aurelia LiangGC AND CHLAMYDIA, AMPLIFIED, [id number] 00:00:00* Test Item Value Reference Range Interpretation Comme nts GONORRHEA, TMA (test code = 96458) NEGATIVE CHLAMYDIA, TMA (test code = 64575) NEGATIVE Oj LiangHIV AB/AG COMBO RFLX [id number] 00:00:00* Test Item Value Reference Range Interpretation Comme nts HIV 1/2 4TH GEN, RFLX CONF ( test code = 3514) NON-REACTIVE Ojrc LiangGC AND CHLAMYDIA, AMPLIFIED, [id number] 00:00:00* Test Item Value Reference Range Interpretation Comme nts GONORRHEA, TMA (test code = 19087) NEGATIVE CHLAMYDIA, TMA (test code = 99579) NEGATIVE Oj LiangHIV AB/AG COMBO RFLX [id number] 00:00:00* Test Item Value Reference Range Interpretation Comme nts HIV 1/2 4TH GEN, RFLX CONF ( test code = 3514) NON-REACTIVE Oj Aurelia LiangGC AND CHLAMYDIA, AMPLIFIED, [id number] 00:00:00* Test Item Value Reference Range Interpretation Comme nts GONORRHEA, TMA (test code = 05182) NEGATIVE CHLAMYDIA, TMA (test code = 57608) NEGATIVE Oj Liang Notes Date/Time Note Provider Source Oj Liang [facility]2023-12-30 02:43:08 Pt dc'd home ambulatory. Pt v/u of dc instructions, prescription use, and follow up as needed. [id number]50 Pt to ed via pov. Alert and ambulatory. Vss. C/o cough, body aches, fever. Denies vomiting [facility] [id number] 00:00:00 Oj Muniz [facility]
[2023-12-30] MEDS ORDERED: NA CHLORIDE 0.9% 1,000 ML ONE (00:22)
[2023-12-30] MEDS ORDERED: KETOROLAC 30 MG/ML INJ ONE (00:22)
[2023-12-30] MEDS ORDERED: ONDANSETRON 4 MG/2 ML VIAL ONE ×2 (00:22→02:37)
[2023-12-30 00:33] LABS: Specific Gravity 1.005 (1.005-1.030)
[2023-12-30 00:43] LABS: Renal Epithelial <5 /HPF (None Seen); Specific Gravity 1.005 (1.005-1.030); Sqamous Epithelial <5 /HPF (None Seen); Urine Bacteria <20 /HPF (<20); Urine Bilirubin NEGATIVE (Negative); Urine Blood Trace (Negative); Urine Clarity Turbid (Clear); Urine Color Colorless (Yellow); Urine Culture Reflex Order NOT NEEDED; Urine Glucose NEGATIVE (Negative); Urine Ketones NEGATIVE (Negative); Urine Microscopic Reflex YN ORDER UMIC; Urine Nitrite NEGATIVE (Negative); Urine Protein NEGATIVE (Negative); Urine RBC <5 /HPF (None Seen); Urine Urobilinogen Normal (Normal); Urine WBC <5 /HPF (<5)
[2023-12-30 00:56] LABS: Absolute Basophils 0.1 K/uL (0-0.5); Absolute Eosinophils 0.4 K/uL (0-0.5); Absolute Lymphocytes (CBC) 3.5 K/uL (0.7-4.9); Absolute Monocytes 0.6 K/uL (0.1-1.3); Absolute Neutrophil 5.7 K/uL (1.8-8.0); Basophils % 0.6 % (0-1.3); Eosinophils % 3.9 % (0-4.4); Hematocrit 37.9 % (36.0-45.0); Hemoglobin 12.5 g/dL (12.0-15.0); Lymphocytes % 34.4 % (15.3-44.8); MCH 30.6 pg (27.0-35.0); MCV 92.8 fL (80-100); MPV 7.8 fL (7.6-11.3); Monocytes % 5.6 % (3.3-12.3); Neutrophils % 55.5 % (41.7-73.7); Platelets 304 thou/uL (152-406); RBC Red Blood Cell Count 4.08 M/uL (3.86-4.86); Red Cell Distribution Width 12.8 % (12.1-15.2)
[2023-12-30 01:12] LABS: Albumin 3.7 g/dL (3.4-5.0); Anion Gap 8.2 mEq/L (5.0-15.0); Bilirubin Total 0.5 mg/dL (0.2-1.0); Globulin 3.7 g/dL (2.3-3.5); Potassium 3.2 mEq/L (3.5-5.1); Protein, Total 7.4 g/dL (6.4-8.2)
[2023-12-30] MEDS ORDERED: POTASSIUM 25 MEQ EFFERV TAB ONE (01:27)
[2023-12-30] MEDS ORDERED: MORPHINE 4 MG/ML SYR ONE (02:37)
[2023-12-30] MEDS ORDERED: TAMSULOSIN 0.4 MG SR CAP ONE (02:47)
[2023-12-30] MEDS ORDERED: METOCLOPRAMIDE 5 MG TAB ONE (02:50)
[2023-12-30] MEDS ORDERED: HYDROCODONE/APAP 10/325 TAB ONE (02:50)
--- NOTE | 2023-12-30 02:59 | ER ---
Nurse's Notes [facility] Name: Inés Valencia Age: 28 yrs Sex: Female : 1995 Arrival Date: 12/29/2023 Time: 23:53 Bed 15 Private MD: Diagnosis: Acute Right Ureteral Calculus, Acute Right hydronephrosis Presentation: 12/29 00:08 Chief complaint: Patient states: I started having abdominal pain around 9 pm. I have jb4 vomited 3 times. I have had kidney stones in the past. Coronavirus screen: At this time, the client does not indicate any symptoms associated with coronavirus-19. Ebola Screen: No symptoms or risks identified at this time. Initial Sepsis Screen: Does the patient meet any 2 criteria? No. Patient's initial sepsis screen is negative. Does the patient have a suspected source of infection? No. Patient's initial sepsis screen is negative. Risk Assessment: Do you want to hurt yourself or someone else? Patient reports no desire to harm self or others. Onset of symptoms was December 30, 2023. Transition of care: patient was not received from another setting of care. 00:08 Method Of Arrival: Ambulatory jb4 00:08 Acuity: FABIOLA 3 jb4 Triage Assessment: 00:10 General: Appears in no apparent distress. uncomfortable, Behavior is calm, cooperative. jb4 Pain: Complains of pain in abdomen Pain does not radiate. Pain currently is 9 out of 10 on a pain scale. EENT: No signs and/or symptoms were reported regarding the EENT system. Neuro: Level of Consciousness is awake, alert, obeys commands, Oriented to person, place, time, situation. Cardiovascular: Patient's skin is warm and dry. Respiratory: Airway is patent Respiratory effort is even, unlabored, Respiratory pattern is regular, symmetrical. GI: Abdomen is flat, non-distended. : No signs and/or symptoms were reported regarding the genitourinary system. Derm: Skin is intact, Skin is pink, warm \T\ dry. Musculoskeletal: Circulation, motion, and sensation intact. Range of motion: intact in all extremities. Historical: - Allergies: 00:10 No Known Allergies; jb4 - PMHx: 00:10 diabetes mellitus; Heart Murmur; jb4 - Immunization history:: Adult Immunizations up to date. - Infectious Disease History:: Denies. - Social history:: Smoking status: Patient denies any tobacco usage or history of. Screenin:[address] [facility] ED Fall Risk Assessment (Adult) History of falling in the last 3 months, jb4 including since admission No falls in past 3 months (0 pts) Confusion or Disorientation No (0 pts) Intoxicated or Sedated No (0 pts) Impaired Gait No (0 pts) Mobility Assist Device Used No (0 pt) Altered Elimination No (0 pt) Score/Fall Risk Level 0 - 2 = Low Risk Oriented to surroundings, Maintained a safe environment. Abuse screen: Denies threats or abuse. Nutritional screening: No deficits noted. Tuberculosis screening: No symptoms or risk factors identified. Assessment: 00:13 Reassessment: see triage note. jb4 03:06 Reassessment: Patient appears in no apparent distress at this time. Patient and/or jb4 family updated on plan of care and expected duration. Pain level reassessed. Patient is alert, oriented x 3, equal unlabored respirations, skin warm/dry/pink. Vital Signs: 00:08 BP 119 / 82; Pulse 77; Resp 16; Temp 97.8(O); Pulse Ox 98% on R/A; Weight 68.04 kg (R); jb4 Height 4 ft. 11 in. (R); 03:06 BP 127 / 86; Pulse 83; Resp 16; Pulse Ox 96% on R/A; jb4 00:08 Body Mass Index 30.30 (68.04 kg, 149.86 cm) jb4 ED Course: 12/28 23:54 Patient arrived in ED. jj6 23:57 Lucio Garcia PA is PHCP. cp 23:57 Gustavo Staples MD is Attending Physician. cp 12/29 00:10 Triage completed. jb4 00:10 Arm band placed on right wrist. jb4 00:13 Patient has correct armband on for positive identification. Bed in low position. Call jb4 light in reach. Side rails up X 1. Provided Education on: plan of care. 00:50 CT Stone Protocol In Process Unspecified. EDMS 02:58 Sean Hoffman MD is Referral Physician. sp4 03:06 No provider procedures requiring assistance completed. IV discontinued, intact, jb4 bleeding controlled, No redness/swelling at site. Pressure dressing applied. Administered Medications: 00:40 Drug: TORadol - Ketorolac IVP 15 mg IVP once; may give if test negative jb4 Route: IVP; Site: right antecubital; 01:20 Follow up: Response: No adverse reaction; Marked relief of symptoms jb4 00:40 Drug: Ondansetron IVP 4 mg IVP once; over 2 minutes Route: IVP; Site: right antecubital;jb4 01:20 Follow up: Response: No adverse reaction; Marked relief of symptoms jb4 00:40 Drug: NS 0.9% IV 1000 ml IV at 1 bolus Per protocol; to be given as a bolus over 60 jb4 minutes Route: IV; Rate: 1 bolus; Site: right antecubital; 01:40 Follow up: Response: No adverse reaction; Marked relief of symptoms; IV Status: jb4 Completed infusion; IV Intake: 1000ml 01:41 Drug: Potassium PO Effervescent Tablet 50 mEq PO once; dissolve in 4 ounces of water or jb4 juice Route: PO; 02:43 Follow up: Response: No adverse reaction jb4 02:42 Drug: morphine IVP or IV 4 mg IVP once over 4 mins Route: IVP; Infused Over: 4 mins; jb4 Site: right antecubital; 02:56 Follow up: Response: No adverse reaction; Marked relief of symptoms jb4 02:42 Drug: Ondansetron IVP 4 mg IVP once; over 2 minutes Route: IVP; Site: right antecubital;jb4 02:56 Follow up: Response: No adverse reaction; Marked relief of symptoms jb4 02:55 Drug: MetoCLOPramide PO 10 mg PO once Route: PO; jb4 03:07 Follow up: Response: No adverse reaction jb4 02:56 Drug: Flomax PO 0.8 mg PO once Route: PO; jb4 03:07 Follow up: Response: No adverse reaction jb4 02:56 Drug: [place] PO 10 mg-325 mg 1 tabs PO once Route: PO; jb4 03:07 Follow up: Response: No adverse reaction jb4 Medication: 00:13 VIS not applicable for this client. jb4 Intake: 01:40 IV: 1000ml; Total: 1000ml. jb4 Outcome: 02:58 Discharge ordered by . sp4 03:06 Discharged to home ambulatory, jb4 03:06 Condition: stable 03:06 Discharge instructions given to patient, Instructed on discharge instructions, follow up and referral plans. medication usage, Demonstrated understanding of instructions, follow-up care, medications, Prescriptions given X 4, 03:07 Patient left the ED. jb4 Signatures: Dispatcher [employer] EDMS Lucio Garcia PA PA cp Bryson, James, RN RN jb4 Jada Poe jj6 Gustavo Staples MD MD sp4
--- NOTE | 2023-12-30 02:59 | EDPHYS ---
Physician Documentation [facility] Name: Inés Valencia Age: 28 yrs Sex: Female : 1995 Arrival Date: 12/29/2023 Time: 23:53 Bed 15 Private MD: ED Physician Gustavo Staples HPI: 12/29 00:05 This 28 yrs old Female presents to ER via Unassigned with complaints of cp Abdominal Pain. 00:05 The patient presents with abdominal pain in the right upper quadrant, right flank. cp Onset: The symptoms/episode began/occurred tonight about 2100. The symptoms do not radiate. Associated signs and symptoms: Pertinent positives: nausea, vomiting, Pertinent negatives: constipation, diarrhea, dysuria, fever. 00:05 The symptoms are described as constant. cp Historical: - Allergies: 00:10 No Known Allergies; jb4 - PMHx: 00:10 diabetes mellitus; Heart Murmur; jb4 - Immunization history:: Adult Immunizations up to date. - Infectious Disease History:: Denies. - Social history:: Smoking status: Patient denies any tobacco usage or history of. ROS: 00:10 Abdomen/GI: Positive for abdominal pain, nausea, vomiting, Negative for diarrhea, cp constipation, 00:10 Eyes: Negative for injury, pain, redness, and discharge, cp 00:10 Constitutional: Negative for body aches, chills, fever, poor PO intake, 00:10 ENT: Negative for drainage from ear(s), ear pain, sore throat, difficulty swallowing, difficulty handling secretions, 00:10 Cardiovascular: Negative for chest pain, 00:10 Respiratory: Negative for cough, shortness of breath, wheezing, 00:10 : Negative for hematuria, burning with urination, 00:10 Neuro: Negative for altered mental status, dizziness, headache, weakness, 00:10 All other systems are negative, Exam: 00:15 Constitutional: The patient appears in no acute distress, alert, awake, non-toxic, well cp developed, well nourished, 00:15 Head/Face: Normocephalic, atraumatic. cp 00:15 Eyes: Periorbital structures: appear normal, Conjunctiva: normal, no exudate, no injection, Sclera: no appreciated abnormality, Lids and lashes: appear normal, bilaterally, 00:15 ENT: External ear(s): are unremarkable, Nose: is normal, Mouth: Lips: moist, Oral mucosa: moist, Posterior pharynx: Airway: no evidence of obstruction, patent, 00:15 Chest/axilla: Inspection: normal, 00:15 Cardiovascular: Rate: normal, Rhythm: regular, 00:15 Respiratory: the patient does not display signs of respiratory distress, Respirations: normal, no use of accessory muscles, no retractions, labored breathing, is not present, Breath sounds: are clear throughout, no decreased breath sounds, no stridor, no wheezing, 00:15 Abdomen/GI: Inspection: abdomen appears normal, Palpation: soft, in all quadrants, moderate abdominal tenderness, in the right upper quadrant, rebound tenderness, is not appreciated, involuntary guarding, is not appreciated, 00:15 Back: CVA tenderness, is absent, 00:15 Neuro: Orientation: to person, place \T\ time. Mentation: is normal, Vital Signs: 00:08 BP 119 / 82; Pulse 77; Resp 16; Temp 97.8(O); Pulse Ox 98% on R/A; Weight 68.04 kg (R); jb4 Height 4 ft. 11 in. (R); 03:06 BP 127 / 86; Pulse 83; Resp 16; Pulse Ox 96% on R/A; jb4 00:08 Body Mass Index 30.30 (68.04 kg, 149.86 cm) jb4 MDM: 00:15 Differential diagnosis: cholecystitis, Cholelithiasis, Ectopic , gastritis, cp pancreatitis, Pyelonephritis, Ureterolithiasis, urinary tract infection. 01:21 Patient medically screened. sp4 02:48 Data reviewed: vital signs, nurses notes, old medical records, lab test result(s), sp4 radiologic studies, CT scan. ED course: TECHNIQUE: CT of the abdomen and pelvis without contrast. All CT scans at this facility use dose modulation, iterative reconstruction, and/or weight based dosing when appropriate to reduce radiation dose to as low as reasonably achievable. COMPARISON: None. FINDINGS: Lower thorax: Lung bases are clear Abdomen: Stomach:Postoperative changes of the stomach. Liver:No focal lesions. No intrahepatic ductal distention. Gallbladder:Nondistended Pancreas:Within normal limits Spleen:Within normal limits Right kidney:2 mm renal stone. Mild to moderate hydronephrosis. 3 mm proximal ureteral stone. Stranding and edema surrounding the right kidney. Left kidney:No hydronephrosis. No renal or ureteral calculi. Adrenal glands:Within normal limits Vascular structures:Within normal limits (although limited evaluation on noncontrast exam). Lymph nodes:No lymphadenopathy by size criteria Pelvis: Small bowel:No significant distention. Appendix:Within normal limits Colon:No distention or acute pericolonic edema. Peritoneum: No free intraperitoneal fluid or air. Bones: No acute bone findings. Bladder: Unremarkable. Reproductive organs: No acute findings. Note that evaluation of the bowel and solid organs is somewhat limited due to lack of intravenous and oral contrast. IMPRESSION: 1. Mild to moderate right-sided hydronephrosis with a 3 mm right proximal ureteral stone. 2. Right-sided nephrolithiasis. Electronically signed by: Oscar King MD 12/30/2023 01:28 AM. 12/28 23:59 Order name: Urinalysis w/ reflexes; Complete Time: 00:51 cp 12/29 00:51 Interpretation: Normal except: [facility] Turbid; UBLD Trace. cp 12/28 23:59 Order name: Test, Urine; Complete Time: 00:51 cp 12/29 00:07 Order name: CBC with Diff; Complete Time: 01:16 cp 12/29 00:07 Order name: CMP; Complete Time: 01:16 cp 12/29 01:16 Interpretation: Normal except: GFR 79; K 3.2; GLOB 3.7; A/G 1.0. cp 12/29 00:07 Order name: Lipase; Complete Time: 01:16 cp 12/29 00:14 Order name: CT Stone Protocol cp 12/29 00:07 Order name: IV Saline Lock; Complete Time: 00:35 cp 12/29 00:07 Order name: Labs collected and sent; Complete Time: 00:35 cp Administered Medications: 00:40 Drug: TORadol - Ketorolac IVP 15 mg IVP once; may give if test negative jb4 Route: IVP; Site: right antecubital; 01:20 Follow up: Response: No adverse reaction; Marked relief of symptoms jb4 00:40 Drug: Ondansetron IVP 4 mg IVP once; over 2 minutes Route: IVP; Site: right antecubital;jb4 01:20 Follow up: Response: No adverse reaction; Marked relief of symptoms jb4 00:40 Drug: NS 0.9% IV 1000 ml IV at 1 bolus Per protocol; to be given as a bolus over 60 jb4 minutes Route: IV; Rate: 1 bolus; Site: right antecubital; 01:40 Follow up: Response: No adverse reaction; Marked relief of symptoms; IV Status: jb4 Completed infusion; IV Intake: 1000ml 01:41 Drug: Potassium PO Effervescent Tablet 50 mEq PO once; dissolve in 4 ounces of water or jb4 juice Route: PO; 02:43 Follow up: Response: No adverse reaction jb4 02:42 Drug: morphine IVP or IV 4 mg IVP once over 4 mins Route: IVP; Infused Over: 4 mins; jb4 Site: right antecubital; 02:56 Follow up: Response: No adverse reaction; Marked relief of symptoms jb4 02:42 Drug: Ondansetron IVP 4 mg IVP once; over 2 minutes Route: IVP; Site: right antecubital;jb4 02:56 Follow up: Response: No adverse reaction; Marked relief of symptoms jb4 02:55 Drug: MetoCLOPramide PO 10 mg PO once Route: PO; jb4 03:07 Follow up: Response: No adverse reaction jb4 02:56 Drug: Flomax PO 0.8 mg PO once Route: PO; jb4 03:07 Follow up: Response: No adverse reaction jb4 02:56 Drug: [place] PO 10 mg-325 mg 1 tabs PO once Route: PO; jb4 03:07 Follow up: Response: No adverse reaction jb4 Disposition: 02:48 Co-signature as Attending Physician, Gustaov Staples MD I agree with the assessment sp4 and plan of care. I reviewed the patient's care provided by Advanced Practice Provider \T\ agree w/ the diagnosis \T\ care plan. I personally saw the pt \T\ performed a substantive portion of the visit, incldng all aspects of the (History/Exam/Medical Decision Making). Disposition Summary: 12/30/23 02:58 Discharge Ordered Notes: Location: Home sp4 Problem: new sp4 Symptoms: have improved sp4 Condition: Stable sp4 Diagnosis - Acute Right Ureteral Calculus, Acute Right hydronephrosis sp4 Followup: sp4 - With: Sean Hoffman MD - When: 7 - 10 days - Reason: Recheck today's complaints Discharge Instructions: - Discharge Summary Sheet sp4 - Kidney Stones, [id number] sp4 Forms: - Patient Portal Instructions sp4 Prescriptions: - Flomax 0.4 mg Oral capsule - take 1 capsule ORAL route every evening for 30 days; 30 capsule; Refills: 0, sp4 Product Selection Permitted - ketorolac 10 mg Oral tablet - take 1 tablet ORAL route every 8 hours for 10 days PRN pain; 30 tablet; sp4 Refills: 0, Product Selection Permitted - ondansetron 8 mg Oral Tablet,disintegrating - take 1 tablet ORAL route every 8 hours PRN nausea; 30 tablet; Refills: 0, sp4 Product Selection Permitted Signatures: Dispatcher [employer] EDMS Lucio Garcia PA PA cp Bryson, James, RN RN jb4 Gustavo Staples MD MD sp4 Corrections: (The following items were deleted from the chart) 00:07 00:07 CBC+H.LAB.BRZ ordered. EDMS EDMS 00:07 00:07 COMPREHENSIVE METABOLIC PANEL+C.LAB.BRZ ordered. EDMS EDMS 00:07 00:07 LIPASE+C.LAB.BRZ ordered. EDMS EDMS 01:12 00:05 Associated signs and symptoms: Pertinent positives: nausea, cp cp
[2023-12-30 03:31] VITALS: TEMP 97.8
[2023-12-30 03:33] VITALS: BP 127/86; O2SAT 96
--- NOTE | 2023-12-30 07:15 | RAD REPORT ---
EXAM DESCRIPTION: Stone Protocol [facility]: CT ABDOMEN PELVIS WITHOUT IV CONTRAST CLINICAL HISTORY: 28 years Female; FLANK PAIN; Bed Name: 15 TECHNIQUE: CT of the abdomen and pelvis without contrast. All CT scans at this facility use dose modulation, iterative reconstruction, and/or weight based dosi ng when appropriate to reduce radiation dose to as low as reasonably achievable. COMPARISON: None. FINDINGS: Lower thorax: Lung bases are clear Abdomen: Stomach: Postoperative changes of the stomach. Liver: No focal lesions. No intrahepatic ductal distention. Gallbladder: Nondistended Pancreas: Within normal limits Spleen: Within normal limits Right kidney: 2 mm renal stone. Mild to moderate hydronephrosis. 3 mm proximal ureteral stone. Strand ing and edema surrounding the right kidney. Left kidney: No hydronephrosis. No renal or ureteral calculi. Adrenal glands: Within normal limits Vascular structures: Within normal limits (although limited evaluation on noncontrast exam). Lymph nodes: No lymphadenopathy by size criteria Pelvis: Small bowel: No significant distention. Appendix: Within normal limits Colon: No distention or acute pericolonic edema. Peritoneum: No free intraperitoneal fluid or air. Bones: No acute bone findings. Bladder: Unremarkable. Reproductive organs: No acute findings. Note that evaluation of the bowel and solid organs is somewhat limited due to lack of intravenous and oral contrast. IMPRESSION: 1. Mild to moderate right-sided hydronephrosis with a 3 mm right proximal ureteral stone. 2. Right-sided nephrolithiasis. Electronically signed by: Oscar King MD 12/30/2023 01:28 AM CDT Z9 Due to temporary technical issues with the PACS/[employer] reporting system, reports are being liana d by the in-house radiologist without review as a courtesy to ensure prompt reporting the interpreting radiologist is fully responsible for the content of the report. Transcribed Date/Time: 12/30/2023 7:15 AM
== END 2023-12-30 03:07 | disposition home or self-care (01) ==
LOC: ER 23:53
DX: N20.1 Calculus of ureter (principal); N13.30 Unspecified hydronephrosis
CPT/HCPCS: 36415; 74176; 76377; 80053; 81001; 81025; 83690; 85025; 96361; 96374; 96375; 99284; J2405; J7030

== ENCOUNTER 2024-03-25 11:53 | Emergency (ER) | payer OTHER, SELFPAY ==
--- OUTSIDE RECORDS SUMMARY | 2024-03-25 11:59 | XMS REPORT | Continuity of Care Document ---
Author Name Unknown Address [address] [facility] [address] [place] [address] [facility] Address [address] [facility]. 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 [id number] 2023 00:00:00 [facility] [id number] 2021 00:00:00 Problems Condition Name Condition Details Condition Category Status Onset Date Resolution Date Last Treatment Date Treating Clinician Comments Source Contracept joaquín management Contracept joaquín management Disease Active 05-30 00:00: 00 [facility] Over weight Over weight Disease Active 05-30 00:00: 00 [facility] Allergies, Adverse Reactions, Alerts Allergy Name Allergy Type Status Severity Reaction(s) Onset Date Inactive Date Treating Clinician Comments Source [place] - Intraven ous Propensi ty to adverse reaction to drug Active 09-12 00:00: 00 Oj Liang NO KNOWN ALLERGIE S Drug Class Active [facility] Social History Social Habit Start Date Stop Date Quantity Comments [facility] function 2023-03-19 00:00:00 2023-03-19 00:00:00 [facility] Alcohol intake 2023-03-19 00:00:00 2023-03-19 00:00:00 Current drinker of alcohol (finding) [facility] Exposure to SARS-CoV-2 (event) 2022-07-03 00:00:00 2022-07-13 10:18:00 Not sure [facility] Tobacco use and exposure 2017-05-30 00:00:00 2017-05-30 00:00:00 Smokeless tobacco non-user [facility] Tobacco Comment 2017-05-30 00:00:00 2017-05-30 00:00:00 denies smoke expsoure [facility] Alcohol Comment 2016-10-05 00:00:00 2016-10-05 00:00:00 occasional [facility] Sex Assigned At 1995 00:00:00 1995 00:00:00 [facility] Smoking Status Start Date Stop Date Source Never smoked tobacco [facility] Medications Ordered Medication Name Filled Medication Name Start Date Stop Date Current Medication? Ordering Clinician Indication Dosage Frequency Signature (SIG) Comments Components Source ondansetron 4 mg disintegrat ing tablet 10-29 00:00: 00 Yes 1mg Oj Liang acetaminoph en (TYLENOL) tablet 1,000 mg 2022-03 08:15: 00 03-19 07:19 :00 No 1000mg 1,000 mg, Oral, ONCE, 1 dose, On 03/19/23 at 0215, Routine [facility] BENZONATATE 100 MG 2022-03 00:00: 00 Yes Oj Liang INHALE TWO (2) PUFFS BY MOUTH EVERY FOUR HOURS NEEDED FOR WHEEZING OR SHORTNESS OF BREATH. 2022-03 00:00: 00 Yes Oj Liang benzonatate 100 mg capsule 2022-03 00:00: 00 Yes [id number] 100mg Take 1 capsule by mouth 3 (three) times daily as needed for Cough. [facility] albuterol 90 mcg/actuati on inhaler 2022-03 230 00:00: 00 Yes [id number] 2{puff} Inhale 2 Puffs every 4 (four) hours as needed for Wheezing or Shortness of Breath. [facility] TAKE ONE (1) TABLET(S) BY MOUTH NOW AND REPEAT IN 72 HOURS. 2022-03 00:00: 00 Yes Oj Liang TAKE ONE (1) TABLET BY MOUTH TWICE A DAY FOR 7 DAYS. 2022-03 0- 00:00: 00 Yes Oj Liang TAKE 1 [...] mg per tablet 07-13 00:00: 00 Yes [id number] 1{tbl} Take 1 tablet by mouth every 12 (twelve) hours. [facility] TAKE 10 ML EVERY 6 TO 8 HOURS NEEDED FOR COUGH 07-12 00:00: 00 06-30 00:00 :00 No [id number] Oj Aurelia Liang TAKE 2 TABLETS ON DAY 1 THEN [...] 6-25 00:00: 00 Yes Oj F Garth TAKE ONE (1) TABLET(S) BY MOUTH AND [...] Oj Liang TAMSULOSIN HYDROCHLORI DE 0.4 MG 08-11 00:00: 00 Yes Oj Liang TAKE ONE (1) TABLET(S) BY MOUTH EVERY FOUR TO SIX HOURS NEEDED FOR PAIN. 08-11 00:00: 00 Yes Oj Liang metronidazo le 500 mg tablet 07-21 00:00: 00 Yes 1mg Oj Liang Dose Unknown 07-21 00:00: 00 Yes Oj Liang Dose Unknown 5 00:00: 00 Yes Oj Liang TAKE ONE [...] Yes Oj Liang Flagyl 500 mg tablet 3 00:00: 00 Yes 1mg Oj Liang Flagyl 500 mg tablet 9- 00:00: 00 Yes 1mg Oj Liang Dose Unknown 8- 00:00: 00 Yes Oj Liang Flagyl 500 mg tablet 8- 00:00: 00 Yes 1mg Oj Liang Flagyl 500 mg tablet 2- 00:00: 00 Yes 1mg Oj Liang levonorgest rel (PLAN B ORAL) 12-13 15:52: 04 Yes Take by mouth. [facility] amoxicillin -pot clavulanate 500 mg 500-125 mg tablet 11-30 00:00: 00 07-13 00:00 :00 No TAKE ONE (1) TABLET(S) BY MOUTH TWICE A DAY. [facility] METRONIDAZO LE 500 mg tablet 10-05 00:00: 00 07-13 00:00 :00 No 500mg Take 1 tablet by mouth 2 (two) times daily. [facility] SULFAMETHOX AZOLE-TRIME THOPRIM 800-160 mg per tablet 10-05 00:00: 00 07-13 00:00 :00 No 1{tbl} Take 1 tablet by mouth every 12 (twelve) hours. [facility] Immunizations Ordered Immunization Name Filled Immunization Name Date Status Comments Source Moderna COVID-19 Vaccine Moderna COVID-19 Vaccine 2021-09-24 00:00:00 Completed Oj Liang TDAP (ADACEL) VACCINE 2016-10-19 00:00:00 Completed [facility] TDAP (ADACEL) VACCINE Unknown Completed [facility] Vital Signs Vital Name Observation Time Observation Value Comments S ource Systolic blood pressure 2023-03-19 07:00:00 152 mm[Hg] [facility] Diastolic blood pressure 2023-03-19 07:00:00 94 mm[Hg] [facility] Heart rate 2023-03-19 07:00:00 94 /min [facility] Body temperature 2023-03-19 07:00:00 38.11 [place] [facility] Respiratory rate 2023-03-19 07:00:00 18 /min [facility] Body height 2023-03-19 07:00:00 149.9 cm [facility] Body weight 2023-03-19 07:00:00 70.308 kg [facility] BMI 2023-03-19 07:00:00 31.31 kg/m2 [facility] Oxygen saturation in Arterial blood by Pulse oximetry 2023-03-19 07:00:00 99 /min [facility] Systolic blood pressure 2022-07-13 18:14:58 129 mm[Hg] [facility] Diastolic blood pressure 2022-07-13 18:14:58 82 mm[Hg] [facility] Heart rate 2022-07-13 18:14:58 89 /min [facility] Respiratory rate 2022-07-13 18:14:58 18 /min [facility] Oxygen saturation in Arterial blood by Pulse oximetry 2022-07-13 18:14:58 95 /min [facility] Body temperature 2022-07-13 15:20:00 37.28 [place] [facility] Body height 2022-07-13 15:20:00 149.9 cm [facility] Body weight 2022-07-13 15:20:00 66.225 kg [facility] BMI 2022-07-13 15:20:00 29.49 kg/m2 [facility] BP Systolic 2023-03-31 08:59:00 Step [...] F Garth Body Temperature 2021-08-24 16:14:00 Oj F Garth Heart Rate 2021-08-24 16:14:00 70.00 /min Elizabeth Liang Respiratory Rate 2021-08-24 16:14:00 Oj Liang Procedures Procedure Date / Time Performed Performing Clinicia n Source ASSIGNMENT OF BENEFITS 2023-03-19 07:55:34 Docto r Unassigned, [place] [facility] XR CHEST 2 VW 2023-03-19 07:44:15 Antonio More [facility] URINALYSIS 2023-03-19 07:20:00 [facility] GROUP A 2023-03-19 07:06:00 Antonio More [facility] RAPID INFLUENZA A/B 2023-03-19 07:06:00 Shabbir More [facility] COVID-19 (ID NOW RAPID TESTING) 2023-03-19 07:06:00 Antonio More [facility] CONSENT/REFUSAL FOR DIAGNOSIS AND TREATMENT 2023-03-19 06:56:27 Doctor Unassigned, [place] [facility] POCT TEST 2022-07-13 16:52:00 Rebekah Wilson ra [facility] URINALYSIS 2022-07-13 15:57:00 Eva Wilson Un [facility] CONSENT/REFUSAL FOR DIAGNOSIS AND TREATMENT 2022-07-13 15:07:12 Doctor Unassigned, [place] [facility] Encounters Start Date/Time End Date/Time Encounter Type Admission Type Attending [facility] Care Facility Care Department Encounter ID Source 2023-10-30 11:31:40 2023-10-30 11:31:40 Outpatient [facility] [id number] Oj Liang 2023-10-30 00:00:00 2023-10-30 00:00:00 Outpatient Visit [facility] [id number] Oj Liang 2023-03-31 08:55:29 2023-03-31 08:55:29 Outpatient [facility] [id number] Oj Liang 2023-03-19 01:03:00 2023-03-19 02:43:00 Emergency X ANTONIO MORE [facility] ERT [id number] [facility] 2023-03-19 01:03:00 2023-03-19 02:43:00 Emergency Antonio More [facility] [id number] [facility] 2022-12-10 10:44:34 2022-12-10 10:44:34 Outpatient [facility] [id number] Oj Liang 2022-07-15 15:46:53 2022-07-15 15:46:53 Outpatient [facility] [id number] Oj Liang 2022-07-15 00:00:00 2022-07-15 00:00:00 Outpatient Visit [facility] [id number] Oj Liang 2022-07-15 00:00:00 2022-07-15 00:00:00 Outpatient Visit [facility] [id number] Oj Liang 2022-07-13 10:22:00 2022-07-13 13:18:00 Emergency X REBEKAH WILSONRA [facility] ERT [id number] [facility] 2022-07-13 10:22:00 2022-07-13 13:18:00 Emergency StefanRebekahra De La Rosa [facility] [id number] [facility] 2022-07-12 15:29:57 2022-07-12 15:29:57 Outpatient [facility] [id number] Oj Liang 2022-07-09 09:05:44 2022-07-09 09:05:44 Outpatient [facility] [id number] Oj Liang 2022-07-06 10:41:05 2022-07-06 10:41:05 Outpatient [facility] [id number] Oj Liang 2022-04-14 09:37:27 2022-04-14 09:37:27 Outpatient [facility] [id number] Oj Liang 2022-01-08 08:33:57 2022-01-08 08:33:57 Outpatient [facility] [id number] Oj Liang Results Test Description Test Time Test Comments Results Result Comments Source XR CHEST 2 VW 2023-02 08:03:3 0 Ordering physician: ANTONIO MORE Indication: Cough with fever Comparison: None Technical quality: Adequate Findings: PA and lateral views of the chest. The cardiopericardialsilhouette is within normal limits. The lungs are clear bilaterally. Thevisualized bony thorax is intact. [facility] HSV I AND II BY [id number] 00:00:00* Test Item Value Reference Range Interpretation Comme nts HSV 1 (test code = 77522) Negative HSV 2 (test code = 82527) Positive SOURCE (test code = 79929) Vagina SPECIMEN (test code = 95852) SEE NOTE Oj LiangHSV I AND II BY [id number] 00:00:00* Test Item Value Reference Range Interpretation Comme nts HSV 1 (test code = 51674) Negative HSV 2 (test code = 93069) Positive SOURCE (test code = 76874) Vagina SPECIMEN (test code = 82387) SEE NOTE Oj LiangHSV I AND II BY [id number] 00:00:00* Test Item Value Reference Range Interpretation Comme nts HSV 1 (test code = 83163) Negative HSV 2 (test code = 65990) Positive SOURCE (test code = 37881) Vagina SPECIMEN (test code = 47885) SEE NOTE Oj Moses Dania, [id number] 14:16:22SPECIMEN NUMBER: [id number] CULTURE, URINE SPECIMEN NUMBER: [id number] SPECIMEN COMMENT: URINE SOURCE: URINE REPORT STATUS: FINAL FINAL REPORT: 07/17/2022 10-50,000 CFU/ML UROGENITAL LALO PRESENT NO COMMON PATHOGENSCUANITA, [id number] 00:00:00* Test Item Value Reference Range Interpretation Comme nts CULTURE, URINE (test code = 50542) SPECIMEN NUMBER: [id number] Oj LiangCULTURE, [id number] 00:00:00* Test Item Value Reference Range Interpretation Comme nts CULTURE, URINE (test code = 18625) SPECIMEN NUMBER: [id number] Oj LiangCULTURE, [id number] 00:00:00* Test Item Value Reference Range Interpretation Comme nts CULTURE, URINE (test code = 55855) SPECIMEN NUMBER: [id number] Oj Moses AustinCT/NG, NAAT, [id number] 17:47:11* Test Item Value Reference Range Interpretation Comme nts CHLAMYDIA, NAAT, URINE (test code = 65412) NEGATIVE NEGATIVE Testing is perfo rmed with Howard JOSHUA 6800/8800 systems usingreal-time polymerase chain reaction (PCR) method. Testing is performed with Howard JOSHUA 6800/8800 systems usingreal-time polymerase chain reaction (PCR) method. A negative result does not exclude low level infection, specimensampling error, or collection error. GONORRHEA, NAAT, URINE (test code = 86883) NEGATIVE NEGATIVE Testing is perfo rmed with Howard JOSHUA 6800/8800 systems usingreal-time polymerase chain reaction (PCR) method. Testing is performed with Howard JOSHUA 6800/8800 systems usingreal-time polymerase chain reaction (PCR) method. A negative result does not exclude low level infection, specimensampling error, or collection error. VAGINAL PATHOGENS DNA [id number] 15:50:53* Test Item Value Reference Range Interpretation Comme nts AMANDA SPECIES (test code = 33941) NEGATIVE NEGATIVE G. VAGINALIS (test code = 88973) NEGATIVE NEGATIVE T. VAGINALIS (test code = 15218) NEGATIVE NEGATIVE Note: The BD [facility] ir VPIII Microbial Identification Testis a DNA probe test intended for use in the detectionand identification of Amanda species, Gardnerellavaginalis and Trichomonas vaginalis nucleic acid. HEPATITIS PANEL, [id number] 05:22:30* Test Item Value Reference Range Interpretation Comme nts HEPATITIS A IgM (test code = 88788) NON-REACTIVE NON-REACTIVE HEPATITIS B CORE IgM (test code = 4644) NON-REACTIVE NON-REACTIVE HEPATITIS B SURF AG (test code = 2739) NON-REACTIVE NON-REACTIVE HEPATITIS C ANTIBODY (test code = 4675) NON-REACTIVE NON-REACTIVE INTERPRETATION HEPATITIS A: (test code = 2552) (NOTE) Hepatitis A serology shows no evidence of acute hepatitis A. INTERPRETATION HEPATITIS B: (test code = 87543) (NOTE) Hepatitis B serology shows no evidence of acute hepatitis B andno indication of exposure to hepatitis B virus in the previous thao eight months. INTERPRETATION HEPATITIS C: (test code = 71604) (NOTE) Hepatitis C serology shows no evidence of exposure to hepatitisC virus at this time. It can take up to 12 months after exposure tothe hepatitis C virus for antibodies to become detectable in the blood in certain patients. HIV 1/2 4TH GEN, RFLX [id number] 05:22:30* Test Item Value Reference Range Interpretation Comme nts HIV 1/2 4TH GEN, RFLX CONF (test code = 3514) NON-REACTIVE NON-REACTIVE [facility] has impo rtant pathology staff changes effective 05/19/2022. New pathology staff will provide uninterrupted, excellent patient care and clinical consultation. See URL: [email or web address]. UNLESS OTHERWISE INDICATED, ALL TESTING PERFORMED AT [facility] [address] [place] [address] APIARIST: GISELLE HARRIS M.D. [place] NUMBER [id number] [facility] [place]. [id number] RPR REFLEX TO T. PALLIDUM - [id number] 05:14:19* Test Item Value Reference Range Interpretation Comme nts RPR (test code = 69699) NON-REACTIVE NON-REACTIVE RPR TITER (test code = 3500) NOT INDIC. TITER NOT INDIC. VAGINAL PATHOGENS DNA [id number] 00:00:00* Test Item Value Reference Range Interpretation Comme nts AMANDA SPECIES (test code = 99401) NEGATIVE G. VAGINALIS (test code = 14366) NEGATIVE T. VAGINALIS (test code = 48335) NEGATIVE Oj Aurelia AustinCT/NG, TMA, [id number] 00:00:00* Test Item Value Reference Range Interpretation Comme nts CHLAMYDIA, NAAT, URINE (test code = 88178) NEGATIVE GONORRHEA, NAAT, URINE (test code = 83375) NEGATIVE Oj LiangACUTE HEPATITIS [id number] 00:00:00* Test Item Value Reference Range Interpretation Comme nts HEPATITIS A IgM (test code = 63940) NON-REACTIVE HEPATITIS B CORE IgM (test c ode = 4644) NON-REACTIVE HEPATITIS B SURF AG (test co de = 2739) NON-REACTIVE HEPATITIS C ANTIBODY (test c ode = 4675) NON-REACTIVE INTERPRETATION HEPATITIS A: (test code = 2552) (NOTE) INTERPRETATION HEPATITIS B: (test code = 29696) (NOTE) INTERPRETATION HEPATITIS C: (test code = 53013) (NOTE) Oj LiangRPR REFLEX TO T. PALLIDUM - [id number] 00:00:00* Test Item Value Reference Range Interpretation Comme nts RPR (test code = 65524) NON-REACTIVE RPR TITER (test code = 3500) NOT INDIC. TITER Oj LiangHIV 1/2 4TH GEN, RFLX [id number] 00:00:00* Test Item Value Reference Range Interpretation Comme nts HIV 1/2 4TH GEN, RFLX CONF ( test code = 3514) NON-REACTIVE Oj LiangVAGINAL PATHOGENS DNA [id number] 00:00:00* Test Item Value Reference Range Interpretation Comme nts AMANDA SPECIES (test code = 61866) NEGATIVE G. VAGINALIS (test code = 00817) NEGATIVE T. VAGINALIS (test code = 68618) NEGATIVE Oj LiangCT/NG, TMA, [id number] 00:00:00* Test Item Value Reference Range Interpretation Comme nts CHLAMYDIA, NAAT, URINE (test code = 61774) NEGATIVE GONORRHEA, NAAT, URINE (test code = 67753) NEGATIVE Oj LiangACUTE HEPATITIS [id number] 00:00:00* Test Item Value Reference Range Interpretation Comme nts HEPATITIS A IgM (test code = 25240) NON-REACTIVE HEPATITIS B CORE IgM (test c ode = 4644) NON-REACTIVE HEPATITIS B SURF AG (test co de = 2739) NON-REACTIVE HEPATITIS C ANTIBODY (test c ode = 4675) NON-REACTIVE INTERPRETATION HEPATITIS A: (test code = 2552) (NOTE) INTERPRETATION HEPATITIS B: (test code = 01357) (NOTE) INTERPRETATION HEPATITIS C: (test code = 99730) (NOTE) Oj Moses AustinRPR REFLEX TO T. PALLIDUM - [id number] 00:00:00* Test Item Value Reference Range Interpretation Comme nts RPR (test code = 07565) NON-REACTIVE RPR TITER (test code = 3500) NOT INDIC. TITER Oj LiangHIV 1/2 4TH GEN, RFLX [id number] 00:00:00* Test Item Value Reference Range Interpretation Comme nts HIV 1/2 4TH GEN, RFLX CONF ( test code = 3514) NON-REACTIVE Oj Moses AustinVAGINAL PATHOGENS DNA [id number] 00:00:00* Test Item Value Reference Range Interpretation Comme nts AMANDA SPECIES (test code = 99023) NEGATIVE G. VAGINALIS (test code = 63112) NEGATIVE T. VAGINALIS (test code = 66614) NEGATIVE Oj Moses AustinCT/NG, TMA, [id number] 00:00:00* Test Item Value Reference Range Interpretation Comme nts CHLAMYDIA, NAAT, URINE (test code = 98726) NEGATIVE GONORRHEA, NAAT, URINE (test code = 05891) NEGATIVE Oj LiangACUTE HEPATITIS [id number] 00:00:00* Test Item Value Reference Range Interpretation Comme nts HEPATITIS A IgM (test code = 87562) NON-REACTIVE HEPATITIS B CORE IgM (test c ode = 4644) NON-REACTIVE HEPATITIS B SURF AG (test co de = 2739) NON-REACTIVE HEPATITIS C ANTIBODY (test c ode = 4675) NON-REACTIVE INTERPRETATION HEPATITIS A: (test code = 2552) (NOTE) INTERPRETATION HEPATITIS B: (test code = 81240) (NOTE) INTERPRETATION HEPATITIS C: (test code = 19322) (NOTE) Oj Moses AustinRPR REFLEX TO T. PALLIDUM - [id number] 00:00:00* Test Item Value Reference Range Interpretation Comme nts RPR (test code = 46850) NON-REACTIVE RPR TITER (test code = 3500) NOT INDIC. TITER Oj LiangHIV 1/2 4TH GEN, RFLX [id number] 00:00:00* Test Item Value Reference Range Interpretation Comme nts HIV 1/2 4TH GEN, RFLX CONF ( test code = 3514) NON-REACTIVE Oj F AustinPOCT [id number] 16:52:00* Test Item Value Reference Range Interpretation Comme nts POCT PREG (test code = 1605) Negative On board controls acceptable with C Line (test code = 3574) Present POCT PREG LOT # (test code = 3575) HCG [id number] POCT PREG TEST DATE (test code = 3576) 10/27/2023 Lab Interpretation (test cod e = 88860-1) Normal [facility] [id number] 07:15:53* Test Item Value Reference Range Interpretation [...] SPECIMENS. FOR MOREINFORMATION, SEE CLIENT ANNOUNCEMENT AT [email or web address] RISK RATIO LDL/HDL (test code = 2238) 1.37 RATIO <3.22 [facility] has i mportant pathology staff changes effective 05/19/2022. New pathology staff will provide uninterrupted, excellent patient care and clinical consultation. See URL: [email or web address]. UNLESS OTHERWISE INDICATED, ALL TESTING PERFORMED AT [facility] [address] [place] [address] APIARIST: GISELLE HARRIS M.D. CLIA NUMBER [id number] [facility] [place]. [id number] HEMOGLOBIN [id number] 04:42:18* Test Item Value Reference Range Interpretation Comme nts HEMOGLOBIN A1c (test code = 91320) 5.5 % 4.2-5.6 LIPID [id number] 00:00:00* Test Item Value Reference Range Interpretation Comme nts CHOLESTEROL (test code = 2210) 142 MG/DL TRIGLYCERIDES (test code = 2232) 48 MG/DL HDL CHOLESTEROL (test code = 2220) 54 MG/DL CALC LDL CHOL (test code = 2237) 74 MG/DL RISK RATIO LDL/HDL (test cod e = 2238) 1.37 RATIO Oj Moses AustinHEMOGLOBIN [id number] 00:00:00* Test Item Value Reference Range Interpretation Comme nts HEMOGLOBIN A1c (test code = 97520) 5.5 % Oj Moses AustinLIPID [id number] 00:00:00* Test Item Value Reference Range Interpretation Comme nts CHOLESTEROL (test code = 2210) 142 MG/DL TRIGLYCERIDES (test code = 2232) 48 MG/DL HDL CHOLESTEROL (test code = 2220) 54 MG/DL CALC LDL CHOL (test code = 2237) 74 MG/DL RISK RATIO LDL/HDL (test cod e = 2238) 1.37 RATIO Oj Moses AustinHEMOGLOBIN [id number] 00:00:00* Test Item Value Reference Range Interpretation Comme nts HEMOGLOBIN A1c (test code = 41385) 5.5 % Oj Moses AustinLIPID [id number] 00:00:00* Test Item Value Reference Range Interpretation Comme nts CHOLESTEROL (test code = 2210) 142 MG/DL TRIGLYCERIDES (test code = 2232) 48 MG/DL HDL CHOLESTEROL (test code = 2220) 54 MG/DL CALC LDL CHOL (test code = 2237) 74 MG/DL RISK RATIO LDL/HDL (test cod e = 2238) 1.37 RATIO Oj Moses AustinHEMOGLOBIN [id number] 00:00:00* Test Item Value Reference Range Interpretation Comme nts HEMOGLOBIN A1c (test code = 48690) 5.5 % Oj Moses AustinVAGINAL PATHOGENS DNA [id number] 14:56:30* Test Item Value Reference Range Interpretation Comme nts AMANDA SPECIES (test code = 49257) NEGATIVE NEGATIVE G. VAGINALIS (test code = ) NEGATIVE NEGATIVE T. VAGINALIS (test code = ) NEGATIVE NEGATIVE UNLESS OTHERWISE INDICATED, ALL TESTING [facility] [address] [place] [address] APIARIST: MOIRA AGUILAR M.D. [place] NUMBER [id number] [place] [id number] VAGINAL PATHOGENS DNA [id number] 00:00:00* Test Item Value Reference Range Interpretation Comme nts AMANDA SPECIES (test code = ) NEGATIVE G. VAGINALIS (test code = 74431) NEGATIVE T. VAGINALIS (test code = 68936) NEGATIVE Oj F AustinVAGINAL PATHOGENS DNA [id number] 00:00:00* Test Item Value Reference Range Interpretation Comme nts AMANDA SPECIES (test code = ) NEGATIVE G. VAGINALIS (test code = 42381) NEGATIVE T. VAGINALIS (test code = 92436) NEGATIVE Oj F AustinVAGINAL PATHOGENS DNA [id number] 00:00:00* Test Item Value Reference Range Interpretation Comme nts AMANDA SPECIES (test code = ) NEGATIVE G. VAGINALIS (test code = 13694) NEGATIVE T. VAGINALIS (test code = ) NEGATIVE Oj F AustinCOMPREHENSIVE METABOLIC [id number] 04:34:32* Test Item Value Reference Range Interpretation Comme nts GLUCOSE (test code = 2216) 87 MG/DL 70-99 BUN (test code = 2207) 15 MG/DL 6-20 CREATININE (test code = 4) 0.71 MG/DL 0.60-1.30 eGFR (2020 CKD-EPI) (test code = 04733) 122 ML/MIN/1.73 >60 CALC BUN/CREAT (test code = 2235) 21 RATIO 6-28 SODIUM (test code = 2231) 141 MEQ/L 133-146 POTASSIUM (test code = 2228) 4.2 MEQ/L 3.5-5.4 CHLORIDE (test code = 2215) 107 MEQ/L 95-107 CARBON DIOXIDE (test code = 2206) 23 MEQ/L 19-31 CALCIUM (test code = 2209) 9.8 MG/DL 8.5-10.5 PROTEIN, TOTAL (test code = 2229) 6.7 G/DL 6.1-8.3 ALBUMIN (test code = 2201) 4.1 G/DL 3.5-5.2 CALC GLOBULIN (test code = 2240) 2.6 G/DL 1.9-3.7 CALC A/G RATIO (test code = 2234) 1.6 RATIO 1.0-2.6 BILIRUBIN, TOTAL (test code = 2207) 0.7 MG/DL See_Comment [Automated me ssage] The system which generated this result transmitted reference range: <=1.2. The reference range was not used to interpret this result as normal/abnormal. ALKALINE PHOSPHATASE (test code = 2204) 113 U/L 40-115 AST (test code = 2218) 54 U/L 9-40 H ALT (test code = 2219) 42 U/L 5-40 H LIPID [id number] 04:34:32* Test Item Value Reference Range Interpretation [...] SPECIMENS. FOR MOREINFORMATION, SEE CLIENT ANNOUNCEMENT AT [email or web address] RISK RATIO LDL/HDL (test code = 2238) 2.53 RATIO <3.22 HEMOGLOBIN [id number] 04:34:27* Test Item Value Reference Range Interpretation Comme nts HEMOGLOBIN A1c (test code = 82253) 5.7 % 4.2-5.6 H UNLESS OTHERWISE INDICATED, [facility] [address] [place] [address] APIARIST: MOIRA AGUILAR M.D. CLIA NUMBER [id number] [facility] [place] [place]. [id number] CBC W/AUTO DIFF WITH [id number] 04:17:04* Test Item Value Reference Range Interpretation [...] = 1065) 0.0 /100 WBC'S See_Comment [Automated Jiujiuweikanga ge] The system which generated this result [...] 0.00-0.10 ABS NUCLEATED RBCS (test code = 90413) 0.00 K/UL 0.00-0.11 TSH, THIRD [id number] 04:07:53* Test Item Value Reference Range Interpretation Comme [facility] TSH, THIRD GENERATION (test code = 2821) 0.851 UIU/ML 0.400-4.100 VITAMIN D, 25 [id number] 03:40:16* Test Item Value Reference Range Interpretation Comme [facility] VITAMIN D, 25 OH (test code = [...] . . . NG/ML 30-100 COMPREHENSIVE METABOLIC [id number] 00:00:00* Test Item Value Reference Range Interpretation Comme nts GLUCOSE (test code = 2217) 87 MG/DL BUN (test code = 2208) 15 MG/DL CREATININE (test code = 2214) 0.71 MG/DL eGFR (2020 CKD-EPI) (test code = 86732) 122 ML/MIN/1.73 CALC BUN/CREAT (test code = [...] = 2219) 42 U/L Oj Moses AustinLIPID [id number] 00:00:00* Test Item Value Reference Range Interpretation Comme nts CHOLESTEROL (test code = 2210) 186 MG/DL TRIGLYCERIDES (test code = 2232) 101 MG/DL HDL CHOLESTEROL (test code = 2220) 47 MG/DL CALC LDL CHOL (test code = 2237) 119 MG/DL RISK RATIO LDL/HDL (test cod e = 2238) 2.53 RATIO Oj Moses GarthCBC W/AUTO [id number] 00:00:00* Test Item Value Reference Range Interpretation [...] ABS NUCLEATED RBCS (test cod e = 30180) 0.00 K/UL Oj LiangVITAMIN D, 25 [id number] 00:00:00* Test Item Value Reference Range Interpretation Comme nts VITAMIN D, 25 OH (test code = 4958) 32 NG/ML Oj Moses GarthTSH, THIRD [id number] 00:00:00* Test Item Value Reference Range Interpretation Comme nts TSH, THIRD GENERATION (test code = 2821) 0.851 UIU/ML Oj LiangHEMOGLOBIN [id number] 00:00:00* Test Item Value Reference Range Interpretation Comme nts HEMOGLOBIN A1c (test code = 20237) 5.7 % Oj LiagnCOMPREHENSIVE METABOLIC [id number] 00:00:00* Test Item Value Reference Range Interpretation Comme nts GLUCOSE (test code = 2217) 87 MG/DL BUN (test code = 2208) 15 MG/DL CREATININE (test code = 2214) 0.71 MG/DL eGFR (2020 CKD-EPI) (test code = 41063) 122 ML/MIN/1.73 CALC BUN/CREAT (test code = [...] code = 2219) 42 U/L Oj LiangLIPID [id number] 00:00:00* Test Item Value Reference Range Interpretation Comme nts CHOLESTEROL (test code = 2210) 186 MG/DL TRIGLYCERIDES (test code = 2232) 101 MG/DL HDL CHOLESTEROL (test code = 2220) 47 MG/DL CALC LDL CHOL (test code = 2237) 119 MG/DL RISK RATIO LDL/HDL (test cod e = 2238) 2.53 RATIO Ojrc LiangCBC W/AUTO [id number] 00:00:00* Test Item Value Reference Range Interpretation [...] ABS NUCLEATED RBCS (test cod e = 94169) 0.00 K/UL Oj LiangVITAMIN D, 25 [id number] 00:00:00* Test Item Value Reference Range Interpretation Comme gayla VITAMIN D, 25 OH (test code = 4958) 32 NG/ML Oj LiangTSH, THIRD [id number] 00:00:00* Test Item Value Reference Range Interpretation Comme gayla TSH, THIRD GENERATION (test code = 2821) 0.851 UIU/ML Oj LiangHEMOGLOBIN [id number] 00:00:00* Test Item Value Reference Range Interpretation Comme gayla HEMOGLOBIN A1c (test code = 66064) 5.7 % Oj LiangCOMPREHENSIVE METABOLIC [id number] 00:00:00* Test Item Value Reference Range Interpretation Comme gayla GLUCOSE (test code = 2217) 87 MG/DL BUN (test code = 2208) 15 MG/DL CREATININE (test code = 2214) 0.71 MG/DL eGFR (2020 CKD-EPI) (test code = 02719) 122 ML/MIN/1.73 CALC BUN/CREAT (test code = [...] code = 2219) 42 U/L Oj LiangLIPID [id number] 00:00:00* Test Item Value Reference Range Interpretation Comme nts CHOLESTEROL (test code = 2210) 186 MG/DL TRIGLYCERIDES (test code = 2232) 101 MG/DL HDL CHOLESTEROL (test code = 2220) 47 MG/DL CALC LDL CHOL (test code = 2237) 119 MG/DL RISK RATIO LDL/HDL (test cod e = 2238) 2.53 RATIO Oj LiangCBC W/AUTO [id number] 00:00:00* Test Item Value Reference Range Interpretation [...] ABS NUCLEATED RBCS (test cod e = 15238) 0.00 K/UL Oj LiangVITAMIN D, 25 [id number] 00:00:00* Test Item Value Reference Range Interpretation Comme nts VITAMIN D, 25 OH (test code = 4958) 32 NG/ML Oj LiangTSH, THIRD [id number] 00:00:00* Test Item Value Reference Range Interpretation Comme nts TSH, THIRD GENERATION (test code = 2821) 0.851 UIU/ML Oj LiangHEMOGLOBIN [id number] 00:00:00* Test Item Value Reference Range Interpretation Comme nts HEMOGLOBIN A1c (test code = 30374) 5.7 % Oj LiangPAP TEST, THINPREP, [id number] 00:00:00* Test Item Value Reference Range Interpretation Comme nts SOURCE: (test code = 8001) Cervical/Endo cervi heather SLIDES: (test code = 8011) 1 LMP: (test code = 8021) 09/02/2021 SPECIMEN ADEQUACY: (test code = 57658) (NOTE) INTERPRETATION: (test code = 70344) NILM/NO EPITH. ABNORMALITY;SEE BELOW UNDRAPED ARTIST MODEL: (test code = 8101) MAGEN Beltran(ASCP) PATHOLOGIST INTERPRETATION BY: (test code = 8122) Kiko Gaytan LOCATION: (test code = 69828) (NOTE) CPT: (test code = 8140) (NOTE) Oj LiangPAP TEST, THINPREP, [id number] 00:00:00* Test Item Value Reference Range Interpretation Comme [facility] SOURCE: (test code = 8001) Cervical/Endo cervi heather SLIDES: (test code = 8011) 1 LMP: (test code = 8021) 09/02/2021 SPECIMEN ADEQUACY: (test code = 04763) (NOTE) INTERPRETATION: (test code = 59298) NILM/NO EPITH. ABNORMALITY;SEE BELOW UNDRAPED ARTIST MODEL: (test code = 8101) MAGEN Beltran(ASCP) PATHOLOGIST INTERPRETATION BY: (test code = 8122) Kiko Gaytan LOCATION: (test code = 40874) (NOTE) CPT: (test code = 8140) (NOTE) Oj LiangPAP TEST, THINPREP, [id number] 00:00:00* Test Item Value Reference Range Interpretation Comme nts SOURCE: (test code = 8001) Cervical/Endo cervi heather SLIDES: (test code = 8011) 1 LMP: (test code = 8021) 09/02/2021 SPECIMEN ADEQUACY: (test code = 05703) (NOTE) INTERPRETATION: (test code = 51339) NILM/NO EPITH. ABNORMALITY;SEE BELOW UNDRAPED ARTIST MODEL: (test code = 8101) MAGEN Beltran(ASCP) PATHOLOGIST INTERPRETATION BY: (test code = 8122) Kiko Gaytan LOCATION: (test code = 73726) (NOTE) CPT: (test code = 8140) (NOTE) Oj LiangVAGINAL PATHOGENS DNA [id number] 09:48:11* Test Item Value Reference Range Interpretation Comme nts AMANDA SPECIES (test code = 32690) NEGATIVE NEGATIVE G. VAGINALIS (test code = 39263) POSITIVE NEGATIVE A T. VAGINALIS (test code = 60903) NEGATIVE NEGATIVE HIV 1/2 4TH GEN, RFLX [id number] 03:19:16* Test Item Value Reference Range Interpretation Comme nts HIV 1/2 4TH GEN, RFLX CONF ( test code = 3514) NON-REACTIVE NON-REACTIVE HEPATITIS PANEL, [id number] 03:19:16* Test Item Value Reference Range Interpretation [...] infection. INTERPRETATION HEPATITIS B: (test code = 39336) (NOTE) Equivocal hepati tis B surface antibody [...] information. INTERPRETATION HEPATITIS C: (test code = 65109) (NOTE) Hepatitis C sero logy shows no evidence of exposure to hepatitisC virus at this time. It can take up to 12 months after exposure tothe hepatitis C virus for antibodies to become detectable in the blood in certain patients. HEPATITIS A [id number] 03:19:16* Test Item Value Reference Range Interpretation Comme nts HEPATITIS A IgM (test code = 2728) NON-REACTIVE NON-REACTIVE UNLESS OTHERW ISE INDICATED, ALL TESTING [facility]FORMED [facility] [address] [place] [address] APIARIST: MOIRA AGUILAR M.D. CLIA NUMBER [id number] [facility] [place]. [id number] GC AND CHLAMYDIA AMPLIFIED, [id number] 00:00:00* Test Item Value Reference Range Interpretation Comme nts GONORRHEA, TMA (test code = 15059) NEGATIVE CHLAMYDIA, TMA (test code = 98775) NEGATIVE Oj Aurelia AustinHIV AB/AG COMBO RFLX [id number] 00:00:00* Test Item Value Reference Range Interpretation Comme nts HIV 1/2 4TH GEN, RFLX CONF ( test code = 3514) NON-REACTIVE Oj F AustinHEPATITIS PROFILE (A,B,C)2021-09-15 00:00:00* Test Item Value [...] (NOTE) INTERPRETATION HEPATITIS B: (test code = 85768) (NOTE) INTERPRETATION HEPATITIS C: (test code = 57983) (NOTE) Oj F AustinHEPATITIS A IgM [REFLEX]2021-09-15 00:00:00* Test Item Value Reference Range Interpretation Comme nts HEPATITIS A IgM (test code = 2728) NON-REACTIVE Oj Moses AustinVAGINAL PATHOGENS DNA [id number] 00:00:00* Test Item Value Reference Range Interpretation Comme nts AMANDA SPECIES (test code = ) NEGATIVE G. VAGINALIS (test code = ) POSITIVE T. VAGINALIS (test code = ) NEGATIVE Oj Moses AustinGC AND CHLAMYDIA AMPLIFIED, [id number] 00:00:00* Test Item Value Reference Range Interpretation Comme nts GONORRHEA, TMA (test code = 18976) NEGATIVE CHLAMYDIA, TMA (test code = 77159) NEGATIVE Oj Moses AustinHIV AB/AG COMBO RFLX [id number] 00:00:00* Test Item Value Reference Range Interpretation [...] (NOTE) INTERPRETATION HEPATITIS B: (test code = 19584) (NOTE) INTERPRETATION HEPATITIS C: (test code = 12003) (NOTE) Oj Moses AustinHEPATITIS A IgM [REFLEX]2021-09-15 00:00:00* Test Item Value Reference Range Interpretation Comme nts HEPATITIS A IgM (test code = 2728) NON-REACTIVE Oj Moses AustinVAGINAL PATHOGENS DNA [id number] 00:00:00* Test Item Value Reference Range Interpretation Comme nts AMANDA SPECIES (test code = ) NEGATIVE G. VAGINALIS (test code = 34231) POSITIVE T. VAGINALIS (test code = 05209) NEGATIVE Oj Moses AustinGC AND CHLAMYDIA AMPLIFIED, [id number] 00:00:00* Test Item Value Reference Range Interpretation Comme nts GONORRHEA, TMA (test code = 52272) NEGATIVE CHLAMYDIA, TMA (test code = 19850) NEGATIVE Oj LiangHIV AB/AG COMBO RFLX [id number] 00:00:00* Test Item Value Reference Range Interpretation [...] (NOTE) INTERPRETATION HEPATITIS B: (test code = 85259) (NOTE) INTERPRETATION HEPATITIS C: (test code = 41322) (NOTE) Oj Moses AustinHEPATITIS A IgM [REFLEX]2021-09-15 00:00:00* Test Item Value Reference Range Interpretation Comme nts HEPATITIS A IgM (test code = 2728) NON-REACTIVE Oj Moses AustinVAGINAL PATHOGENS DNA [id number] 00:00:00* Test Item Value Reference Range Interpretation Comme nts AMANDA SPECIES (test code = 50244) NEGATIVE G. VAGINALIS (test code = 41505) POSITIVE T. VAGINALIS (test code = 74782) NEGATIVE Oj Moses AustinRPR REFLEX TO T. PALLIDUM - [id number] 22:40:41* Test Item Value Reference Range Interpretation Comme nts RPR (test code = 67224) NON-REACTIVE NON-REACTIVE RPR TITER (test code = 3500) NOT INDIC. TITER NOT INDIC. RPR REFLEX TO [id number] 00:00:00* Test Item Value Reference Range Interpretation Comme nts RPR (test code = 19335) NON-REACTIVE RPR TITER (test code = 3500) NOT INDIC. TITER Oj Moses AustinRPR REFLEX TO [id number] 00:00:00* Test Item Value Reference Range Interpretation Comme nts RPR (test code = 51713) NON-REACTIVE RPR TITER (test code = 3500) NOT INDIC. TITER Oj Moses AustinRPR REFLEX TO [id number] 00:00:00* Test Item Value Reference Range Interpretation Comme nts RPR (test code = 28325) NON-REACTIVE RPR TITER (test code = 3500) NOT INDIC. TITER Oj LiangMUMPS IgG AND [id number] 23:04:22* Test Item Value Reference Range Interpretation Comme nts MUMPS VIRUS IgG (test code = 46356) <5.0 AU/mL INTERPRETIVE INF ORMATION: Mumps Ab, [...] at the same time. TESTING PERFORMED AT [facility] PATHOLOGISTS, [facility] [address], [place] [address] [place]. [id number] CLIA NO. [id number] MUMPS VIRUS IgM (test code = 4587) [...] months post-infection or immunization. TESTING PERFORMED AT [facility] PATHOLOGISTS, [facility] [address], [place] [address] [place] [id number] CLIA NO. [id number] [Automated message] The system which generated this result transmitted reference range: <=0.79. The reference range was not used to interpret this result as normal/abnormal. VARICELLA ZOSTER [id number] 15:39:26* Test Item Value Reference Range Interpretation Comme nts VARICELLA ZOSTER IgG (test code = 91262) 59 INDEX SEE BELOW L INTERPRETATI ON [...] . . . INDEX >=165 RUBEOLA IgG [id number] 15:39:26* Test Item Value Reference Range Interpretation Comme nts RUBEOLA IgG ANTIBODY (test code = 87677) <5.0 AU/ML SEE BELOW L INTERPRETATION R [...] . . . AU/ML >=16.5 VARICELLA ZOSTER [id number] 00:00:00* Test Item Value Reference Range Interpretation Comme nts VARICELLA ZOSTER IgG (test c ode = 61301) 59 INDEX Oj Moses AustinRUBEOLA IgG [id number] 00:00:00* Test Item Value Reference Range Interpretation Comme nts RUBEOLA IgG ANTIBODY (test c ode = 25599) <5.0 AU/ML Oj Moses AustinMUMPS IgG AND [id number] 00:00:00* Test Item Value Reference Range Interpretation Comme nts MUMPS VIRUS IgG (test code = 85864) <5.0 AU/mL MUMPS VIRUS IgM (test code = 4587) 0.29 IV Oj F AustinVARICELLA ZOSTER [id number] 00:00:00* Test Item Value Reference Range Interpretation Comme nts VARICELLA ZOSTER IgG (test c ode = 39821) 59 INDEX Oj F AustinRUBEOLA IgG [id number] 00:00:00* Test Item Value Reference Range Interpretation Comme nts RUBEOLA IgG ANTIBODY (test c ode = 98239) <5.0 AU/ML Oj F AustinMUMPS IgG AND [id number] 00:00:00* Test Item Value Reference Range Interpretation Comme nts MUMPS VIRUS IgG (test code = 65174) <5.0 AU/mL MUMPS VIRUS IgM (test code = 4587) 0.29 IV Oj LiangVARICELLA ZOSTER [id number] 00:00:00* Test Item Value Reference Range Interpretation Comme nts VARICELLA ZOSTER IgG (test c ode = 50343) 59 INDEX Oj LiangRUBEOLA IgG [id number] 00:00:00* Test Item Value Reference Range Interpretation Comme gayla RUBEOLA IgG ANTIBODY (test c ode = 73091) <5.0 AU/ML Oj LiangMUMPS IgG AND [id number] 00:00:00* Test Item Value Reference Range Interpretation Comme gayla MUMPS VIRUS IgG (test code = 17441) <5.0 AU/mL MUMPS VIRUS IgM (test code = 4587) 0.29 IV Oj LiangRUBELLA ANTIBODY [id number] 05:44:28* Test Item Value Reference Range Interpretation Comme nts RUBELLA ANTIBODY SCREEN (test code = 4600) 18 IU/ML SEE BELOW INTERPRETATION RUBELLA IgG NON-REACTIVE/NON-IMMUNE . . . . . . . IU/ML <10 REACTIVE/IMMUNE . . . . . . . . . . . IU/ML >=10 RUBELLA IgG INTERP (test code = 33579) REACTIVE REACTIVE UNLESS OTHER HARRISON INDICATED, ALL TESTING PERFORMED [facility] [address] [place] [address] APIARIST: MOIRA AGUILAR M.D. CLIA NUMBER [id number] [facility] [place]. [id number] HEPATITIS Bs AB [id number] 04:24:57* Test Item Value Reference Range Interpretation Comme nts HEPATITIS Bs AB INTERP (test code = 2738) REACTIVE SEE BELOW HEPATITIS Bs AB QUANT (test code = 94570) 12.40 MIU/ML SEE BELOW INTERPRETATI ON INDEX [...] response. (CDC Guidelines, July 2005). RUBELLA ANTIBODY [id number] 00:00:00* Test Item Value Reference Range Interpretation Comme nts RUBELLA ANTIBODY SCREEN (donna t code = 4600) 18 IU/ML RUBELLA IgG INTERP (test cod e = 79961) REACTIVE Oj Moses AustinHEPATITIS Bs AB [id number] 00:00:00* Test Item Value Reference Range Interpretation Comme nts HEPATITIS Bs AB INTERP (test code = 2738) REACTIVE HEPATITIS Bs AB QUANT (test code = 08321) 12.40 MIU/ML Oj Moses AustinRUBELLA ANTIBODY [id number] 00:00:00* Test Item Value Reference Range Interpretation Comme nts RUBELLA ANTIBODY SCREEN (donna t code = 4600) 18 IU/ML RUBELLA IgG INTERP (test cod e = 49584) REACTIVE Oj Moses AustinHEPATITIS Bs AB [id number] 00:00:00* Test Item Value Reference Range Interpretation Comme nts HEPATITIS Bs AB INTERP (test code = 2738) REACTIVE HEPATITIS Bs AB QUANT (test code = 79362) 12.40 MIU/ML Oj Moses AustinRUBELLA ANTIBODY [id number] 00:00:00* Test Item Value Reference Range Interpretation Comme nts RUBELLA ANTIBODY SCREEN (donna t code = 4600) 18 IU/ML RUBELLA IgG INTERP (test cod e = 35486) REACTIVE Oj F AustinHEPATITIS Bs AB [id number] 00:00:00* Test Item Value Reference Range Interpretation Comme nts HEPATITIS Bs AB INTERP (test code = 2738) REACTIVE HEPATITIS Bs AB QUANT (test code = 38784) 12.40 MIU/ML Oj F AustinVAGINAL PATHOGENS DNA [id number] 21:15:22* Test Item Value Reference Range Interpretation Comme nts AMANDA SPECIES (test code = ) NEGATIVE NEGATIVE G. VAGINALIS (test code = 56407) POSITIVE NEGATIVE A T. VAGINALIS (test code = 74138) NEGATIVE NEGATIVE UNLESS OTHERWISE INDICATED, ALL TESTING PERFORMED [facility] [address] [place] [address] APIARIST: MOIRA AGUILAR M.D. CLIA NUMBER [id number] [facility] [place]. [id number] VAGINAL PATHOGENS DNA [id number] 00:00:00* Test Item Value Reference Range Interpretation Comme nts AMANDA SPECIES (test code = 07036) NEGATIVE G. VAGINALIS (test code = 32879) POSITIVE T. VAGINALIS (test code = 35054) NEGATIVE Oj Moses AustinVAGINAL PATHOGENS DNA [id number] 00:00:00* Test Item Value Reference Range Interpretation Comme nts AMANDA SPECIES (test code = 38103) NEGATIVE G. VAGINALIS (test code = 59002) POSITIVE T. VAGINALIS (test code = 35266) NEGATIVE Oj Moses AustinVAGINAL PATHOGENS DNA [id number] 00:00:00* Test Item Value Reference Range Interpretation Comme nts AMANDA SPECIES (test code = 13086) NEGATIVE G. VAGINALIS (test code = 54014) POSITIVE T. VAGINALIS (test code = 64900) NEGATIVE Oj Najera, [id number] 08:35:14SPECIMEN NUMBER: [id number] CULTURE, URINE SPECIMEN NUMBER: [id number] SPECIMEN COMMENT: URINE SOURCE: URINE REPORT STATUS: FINAL FINAL REPORT: 03/07/2021 50-100,000 CFU/ML UROGENITAL LALO PRESENT NO COMMON PATHOGENSCULTURE, [id number] 00:00:00* Test Item Value Reference Range Interpretation Comme nts CULTURE, URINE (test code = 06123) SPECIMEN NUMBER: [id number] Oj LiangCULTURE, [id number] 00:00:00* Test Item Value Reference Range Interpretation Comme nts CULTURE, URINE (test code = 23210) SPECIMEN NUMBER: [id number] Oj LiangCULTCLEMENTE, [id number] 00:00:00* Test Item Value Reference Range Interpretation Comme nts CULTURE, URINE (test code = 74900) SPECIMEN NUMBER: [id number] Oj Moses AustinVAGINAL PATHOGENS DNA [id number] 14:35:22* Test Item Value Reference Range Interpretation Comme nts AMANDA SPECIES (test code = 58721) NEGATIVE NEGATIVE G. VAGINALIS (test code = 55478) NEGATIVE NEGATIVE T. VAGINALIS (test code = 81638) NEGATIVE NEGATIVE UNLESS OTHERWISE INDICATED, ALL TESTING PERFORMED [facility] [employer] [employer] [address] [place] [address] APIARIST: MOIRA AGUILAR M.D. [facility] NUMBER [id number] [facility] [place]. [id number] VAGINAL PATHOGENS DNA [id number] 00:00:00* Test Item Value Reference Range Interpretation Comme nts AMANDA SPECIES (test code = 92680) NEGATIVE G. VAGINALIS (test code = 15998) NEGATIVE T. VAGINALIS (test code = 93193) NEGATIVE Oj Moses AustinVAGINAL PATHOGENS DNA [id number] 00:00:00* Test Item Value Reference Range Interpretation Comme nts AMANDA SPECIES (test code = 41496) NEGATIVE G. VAGINALIS (test code = 61788) NEGATIVE T. VAGINALIS (test code = 95131) NEGATIVE Oj Moses AustinVAGINAL PATHOGENS DNA [id number] 00:00:00* Test Item Value Reference Range Interpretation Comme nts AMANDA SPECIES (test code = 02113) NEGATIVE G. VAGINALIS (test code = 06535) NEGATIVE T. VAGINALIS (test code = 33499) NEGATIVE Oj Moses AustinVAGINAL PATHOGENS DNA [id number] 00:00:00* Test Item Value Reference Range Interpretation Comme nts AMANDA SPECIES (test code = 92305) NEGATIVE G. VAGINALIS (test code = 38420) NEGATIVE T. VAGINALIS (test code = 10218) NEGATIVE Oj LiangRPR REFLEX TO [id number] 00:00:00* Test Item Value Reference Range Interpretation Comme nts RPR (test code = 10253) NON-REACTIVE RPR TITER (test code = 3500) NOT INDIC. TITER Oj LiangHIV AB/AG COMBO RFLX [id number] 00:00:00* Test Item Value Reference Range Interpretation [...] HEPATITIS C ANTIBODY (test c ode = 3998) NON-REACTIVE INTERPRETATION HEPATITIS A: (test code = 2552) (NOTE) INTERPRETATION HEPATITIS B: (test code = 75191) (NOTE) INTERPRETATION HEPATITIS C: (test code = 46918) (NOTE) Oj LiangHCG, [id number] 00:00:00* Test Item Value Reference Range Interpretation Comme nts HCG, QUANTITATIVE (test code = 2506) <5 MIU/ML Oj LiangHEPATITIS A IgM [REFLEX]2020-12-17 00:00:00* Test Item Value Reference Range Interpretation Comme nts HEPATITIS A IgM (test code = 2728) NON-REACTIVE Oj LiangGC AND CHLAMYDIA, AMPLIFIED, [id number] 00:00:00* Test Item Value Reference Range Interpretation Comme nts GONORRHEA, NAAT (test code = 36583) NEGATIVE CHLAMYDIA, NAAT (test code = 43822) NEGATIVE Oj LaingVAGINAL PATHOGENS DNA [id number] 00:00:00* Test Item Value Reference Range Interpretation Comme nts AMANDA SPECIES (test code = 67138) NEGATIVE G. VAGINALIS (test code = 34187) NEGATIVE T. VAGINALIS (test code = 81578) NEGATIVE Oj LiangRPR REFLEX TO [id number] 00:00:00* Test Item Value Reference Range Interpretation Comme nts RPR (test code = 80166) NON-REACTIVE RPR TITER (test code = 3500) NOT INDIC. TITER Oj LiangHIV AB/AG COMBO RFLX [id number] 00:00:00* Test Item Value Reference Range Interpretation [...] HEPATITIS C ANTIBODY (test c ode = 2785) NON-REACTIVE INTERPRETATION HEPATITIS A: (test code = 2552) (NOTE) INTERPRETATION HEPATITIS B: (test code = 81280) (NOTE) INTERPRETATION HEPATITIS C: (test code = 19333) (NOTE) Oj LiangHCG, [id number] 00:00:00* Test Item Value Reference Range Interpretation Comme nts HCG, QUANTITATIVE (test code = 2506) <5 MIU/ML Oj LiangHEPATITIS A IgM [REFLEX]2020-12-17 00:00:00* Test Item Value Reference Range Interpretation Comme nts HEPATITIS A IgM (test code = 2728) NON-REACTIVE Oj Moses AustinGC AND CHLAMYDIA, AMPLIFIED, [id number] 00:00:00* Test Item Value Reference Range Interpretation Comme nts GONORRHEA, NAAT (test code = 82788) NEGATIVE CHLAMYDIA, NAAT (test code = 20460) NEGATIVE Oj LiangVAGINAL PATHOGENS DNA [id number] 00:00:00* Test Item Value Reference Range Interpretation Comme nts AMANDA SPECIES (test code = 78835) NEGATIVE G. VAGINALIS (test code = 61096) NEGATIVE T. VAGINALIS (test code = 34441) NEGATIVE Oj LiangRPR REFLEX TO [id number] 00:00:00* Test Item Value Reference Range Interpretation Comme nts RPR (test code = 26152) NON-REACTIVE RPR TITER (test code = 3500) NOT INDIC. TITER Oj LiangHIV AB/AG COMBO RFLX [id number] 00:00:00* Test Item Value Reference Range Interpretation [...] HEPATITIS C ANTIBODY (test c ode = 4673) NON-REACTIVE INTERPRETATION HEPATITIS A: (test code = 2552) (NOTE) INTERPRETATION HEPATITIS B: (test code = 74719) (NOTE) INTERPRETATION HEPATITIS C: (test code = 71509) (NOTE) Oj LiangHCG, [id number] 00:00:00* Test Item Value Reference Range Interpretation Comme nts HCG, QUANTITATIVE (test code = 2506) <5 MIU/ML Oj LiangHEPATITIS A IgM [REFLEX]2020-12-17 00:00:00* Test Item Value Reference Range Interpretation Comme nts HEPATITIS A IgM (test code = 2728) NON-REACTIVE Oj LiangGC AND CHLAMYDIA, AMPLIFIED, [id number] 00:00:00* Test Item Value Reference Range Interpretation Comme nts GONORRHEA, NAAT (test code = 48250) NEGATIVE CHLAMYDIA, NAAT (test code = 19146) NEGATIVE Oj LiangSARS-CoV-2 (COVID-19) by RT-PCR (HIGH RISK)2020-11-13 00:00:00* Test Item Value Reference Range Interpretation Comme nts SARS-CoV-2 INTERPRETATION (t est code = 52957) NEGATIVE SOURCE (test code = 49829) NOT SPECIFIED Oj Moses [id number] (COVID-19) by RT-PCR (HIGH RISK)2020-11-13 00:00:00* Test Item Value Reference Range Interpretation Comme nts SARS-CoV-2 INTERPRETATION (t est code = 72336) NEGATIVE SOURCE (test code = 61682) NOT SPECIFIED Oj Moses [id number] (COVID-19) by RT-PCR (HIGH RISK)2020-11-13 00:00:00* Test Item Value Reference Range Interpretation Comme nts SARS-CoV-2 INTERPRETATION (t est code = 70410) NEGATIVE SOURCE (test code = 08152) NOT SPECIFIED Oj LiangHIV AB/AG COMBO RFLX [id number] 00:00:00* Test Item Value Reference Range Interpretation Comme nts HIV 1/2 4TH GEN, RFLX CONF ( test code = 3514) NON-REACTIVE Oj Moses AustinRPR REFLEX TO [id number] 00:00:00* Test Item Value Reference Range Interpretation Comme nts RPR (test code = 14805) NON-REACTIVE RPR TITER (test code = 3500) [...] (NOTE) INTERPRETATION HEPATITIS B: (test code = 06342) (NOTE) INTERPRETATION HEPATITIS C: (test code = 45515) (NOTE) Oj LiangGC AND CHLAMYDIA, AMPLIFIED, [id number] 00:00:00* Test Item Value Reference Range Interpretation Comme nts GONORRHEA, NAAT (test code = 67570) NEGATIVE CHLAMYDIA, NAAT (test code = 19175) NEGATIVE Oj LiangHEPATITIS A IgM [REFLEX]2020-05-22 00:00:00* Test Item Value Reference Range Interpretation Comme nts HEPATITIS A IgM (test code = 2728) NON-REACTIVE Oj LiangVAGINAL PATHOGENS DNA [id number] 00:00:00* Test Item Value Reference Range Interpretation Comme nts AMANDA SPECIES (test code = 19485) NEGATIVE G. VAGINALIS (test code = 91671) POSITIVE T. VAGINALIS (test code = 68383) NEGATIVE Oj LiangHIV AB/AG COMBO RFLX [id number] 00:00:00* Test Item Value Reference Range Interpretation Comme nts HIV 1/2 4TH GEN, RFLX CONF ( test code = 3514) NON-REACTIVE Oj Moses AustinRPR REFLEX TO [id number] 00:00:00* Test Item Value Reference Range Interpretation Comme nts RPR (test code = 12925) NON-REACTIVE RPR TITER (test code = 3500) [...] (NOTE) INTERPRETATION HEPATITIS B: (test code = 16479) (NOTE) INTERPRETATION HEPATITIS C: (test code = 37816) (NOTE) Oj LiangGC AND CHLAMYDIA, AMPLIFIED, [id number] 00:00:00* Test Item Value Reference Range Interpretation Comme nts GONORRHEA, NAAT (test code = 44526) NEGATIVE CHLAMYDIA, NAAT (test code = 90510) NEGATIVE Oj Moses AustinHEPATITIS A IgM [REFLEX]2020-05-22 00:00:00* Test Item Value Reference Range Interpretation Comme nts HEPATITIS A IgM (test code = 2728) NON-REACTIVE Oj LiangVAGINAL PATHOGENS DNA [id number] 00:00:00* Test Item Value Reference Range Interpretation Comme nts AMANDA SPECIES (test code = 26217) NEGATIVE G. VAGINALIS (test code = 62381) POSITIVE T. VAGINALIS (test code = 61753) NEGATIVE Oj LiangHIV AB/AG COMBO RFLX [id number] 00:00:00* Test Item Value Reference Range Interpretation Comme nts HIV 1/2 4TH GEN, RFLX CONF ( test code = 3514) NON-REACTIVE Oj Moses AustinRPR REFLEX TO [id number] 00:00:00* Test Item Value Reference Range Interpretation Comme nts RPR (test code = 08028) NON-REACTIVE RPR TITER (test code = 3500) [...] (NOTE) INTERPRETATION HEPATITIS B: (test code = 39049) (NOTE) INTERPRETATION HEPATITIS C: (test code = 13544) (NOTE) Oj Moses AustinGC AND CHLAMYDIA, AMPLIFIED, [id number] 00:00:00* Test Item Value Reference Range Interpretation Comme nts GONORRHEA, NAAT (test code = 59465) NEGATIVE CHLAMYDIA, NAAT (test code = 31455) NEGATIVE Oj Moses AustinHEPATITIS A IgM [REFLEX]2020-05-22 00:00:00* Test Item Value Reference Range Interpretation Comme nts HEPATITIS A IgM (test code = 2728) NON-REACTIVE Oj Moses AustinVAGINAL PATHOGENS DNA [id number] 00:00:00* Test Item Value Reference Range Interpretation Comme nts AMANDA SPECIES (test code = 84249) NEGATIVE G. VAGINALIS (test code = 72589) POSITIVE T. VAGINALIS (test code = 05899) NEGATIVE Oj Moses [id number] (COVID-19) by RT-PCR (HIGH RISK)2020-04-15 00:00:00* Test Item Value Reference Range Interpretation Comme nts SARS-CoV-2 INTERPRETATION (test code = 79751) NEGATIVE SOURCE (test code = 83824) NASOPHARYNGEAL Oj Moses [id number] (COVID-19) by RT-PCR (HIGH RISK)2020-04-15 00:00:00* Test Item Value Reference Range Interpretation Comme nts SARS-CoV-2 INTERPRETATION (test code = 74240) NEGATIVE SOURCE (test code = 49101) NASOPHARYNGEAL Oj Moses [id number] (COVID-19) by RT-PCR (HIGH RISK)2020-04-15 00:00:00* Test Item Value Reference Range Interpretation Comme nts SARS-CoV-2 INTERPRETATION (test code = 97584) NEGATIVE SOURCE (test code = 81001) NASOPHARYNGEAL Oj Moses AustinGC AND CHLAMYDIA, AMPLIFIED, [id number] 00:00:00* Test Item Value Reference Range Interpretation Comme nts GONORRHEA, NAAT (test code = 13529) NEGATIVE CHLAMYDIA, NAAT (test code = 30580) NEGATIVE Oj F AustinGC AND CHLAMYDIA, AMPLIFIED, [id number] 00:00:00* Test Item Value Reference Range Interpretation Comme nts GONORRHEA, NAAT (test code = 39158) NEGATIVE CHLAMYDIA, NAAT (test code = 70911) NEGATIVE Oj F AustinGC AND CHLAMYDIA, AMPLIFIED, [id number] 00:00:00* Test Item Value Reference Range Interpretation Comme nts GONORRHEA, NAAT (test code = 25038) NEGATIVE CHLAMYDIA, NAAT (test code = 67353) NEGATIVE Oj F AustinVAGINAL PATHOGENS DNA [id number] 00:00:00* Test Item Value Reference Range Interpretation Comme nts AMANDA SPECIES (test code = 92082) NEGATIVE G. VAGINALIS (test code = 80180) NEGATIVE T. VAGINALIS (test code = 43546) NEGATIVE Oj F AustinVAGINAL PATHOGENS DNA [id number] 00:00:00* Test Item Value Reference Range Interpretation Comme nts AMANDA SPECIES (test code = 15903) NEGATIVE G. VAGINALIS (test code = 67501) NEGATIVE T. VAGINALIS (test code = 89290) NEGATIVE Oj F AustinVAGINAL PATHOGENS DNA [id number] 00:00:00* Test Item Value Reference Range Interpretation Comme nts AMANDA SPECIES (test code = 29989) NEGATIVE G. VAGINALIS (test code = 86325) NEGATIVE T. VAGINALIS (test code = 56542) NEGATIVE Oj F AustinVAGINAL PATHOGENS DNA [id number] 00:00:00* Test Item Value Reference Range Interpretation Comme nts AMANDA SPECIES (test code = 07383) NEGATIVE G. VAGINALIS (test code = 23274) NEGATIVE T. VAGINALIS (test code = 62169) NEGATIVE Oj F AustinGC AND CHLAMYDIA, AMPLIFIED, [id number] 00:00:00* Test Item Value Reference Range Interpretation Comme nts GONORRHEA, TMA (test code = 25472) NEGATIVE CHLAMYDIA, TMA (test code = 35157) POSITIVE Oj F AustinVAGINAL PATHOGENS DNA [id number] 00:00:00* Test Item Value Reference Range Interpretation Comme nts AMANDA SPECIES (test code = 40080) NEGATIVE G. VAGINALIS (test code = ) NEGATIVE T. VAGINALIS (test code = ) NEGATIVE Oj F AustinGC AND CHLAMYDIA, AMPLIFIED, [id number] 00:00:00* Test Item Value Reference Range Interpretation Comme nts GONORRHEA, TMA (test code = 72462) NEGATIVE CHLAMYDIA, TMA (test code = 33005) POSITIVE Oj F AustinVAGINAL PATHOGENS DNA [id number] 00:00:00* Test Item Value Reference Range Interpretation Comme nts AMANDA SPECIES (test code = ) NEGATIVE G. VAGINALIS (test code = ) NEGATIVE T. VAGINALIS (test code = 21874) NEGATIVE Oj F AustinGC AND CHLAMYDIA, AMPLIFIED, [id number] 00:00:00* Test Item Value Reference Range Interpretation Comme nts GONORRHEA, TMA (test code = 52162) NEGATIVE CHLAMYDIA, TMA (test code = 82477) POSITIVE Oj F AustinGC AND CHLAMYDIA, AMPLIFIED, [id number] 00:00:00* Test Item Value Reference Range Interpretation Comme nts GONORRHEA, TMA (test code = 63613) NEGATIVE CHLAMYDIA, TMA (test code = 32003) NEGATIVE Oj F AustinGC AND CHLAMYDIA, AMPLIFIED, [id number] 00:00:00* Test Item Value Reference Range Interpretation Comme nts GONORRHEA, TMA (test code = 33458) NEGATIVE CHLAMYDIA, TMA (test code = 08448) NEGATIVE Oj F AustinGC AND CHLAMYDIA, AMPLIFIED, [id number] 00:00:00* Test Item Value Reference Range Interpretation Comme nts GONORRHEA, TMA (test code = 83417) NEGATIVE CHLAMYDIA, TMA (test code = 74090) NEGATIVE Oj F AustinHEPATITIS PROFILE (A,B,C)2019-05-19 00:00:00* Test Item Value Reference Range Interpretation Comme nts HEPATITIS A TOTAL AB (test c ode = 2725) REACTIVE HEPATITIS B SURF AG (test co de = 2739) NON-REACTIVE HEP B CORE TOTAL AB (test co de = 2729) NON-REACTIVE HEPATITIS B SURFACE AB (test code = 2737) NON-REACTIVE HEPATITIS C ANTIBODY (test c ode = 8275) NON-REACTIVE INTERPRETATION HEPATITIS A: (test code = 2552) (NOTE) INTERPRETATION HEPATITIS B: (test code = 10822) (NOTE) INTERPRETATION HEPATITIS C: (test code = 05789) (NOTE) Oj Moses [id number] 00:00:00* Test Item Value Reference Range Interpretation Comme nts RPR RESULT (test code = 3501) NON-REACTIVE RPR TITER (test code = 3500) NOT INDIC. TITER Oj LiangHEPATITIS A IgM [REFLEX]2019-05-19 00:00:00* Test Item Value Reference Range Interpretation Comme nts HEPATITIS A IgM (test code = 2728) NON-REACTIVE Oj Msoes AustinHIV AB/AG COMBO RFLX [id number] 00:00:00* Test Item Value Reference Range Interpretation Comme nts HIV 1/2 4TH GEN, RFLX CONF ( test code = 3514) NON-REACTIVE Oj Moses AustinVAGINAL PATHOGENS DNA [id number] 00:00:00* Test Item Value Reference Range Interpretation Comme nts AMANDA SPECIES (test code = 05131) NEGATIVE G. VAGINALIS (test code = 12095) POSITIVE T. VAGINALIS (test code = 55587) NEGATIVE Oj Moses AustinHEPATITIS PROFILE (A,B,C)2019-05-19 00:00:00* Test [...] (NOTE) INTERPRETATION HEPATITIS B: (test code = 81139) (NOTE) INTERPRETATION HEPATITIS C: (test code = 24659) (NOTE) Oj Moses [id number] 00:00:00* Test Item Value Reference Range Interpretation Comme nts RPR RESULT (test code = 3501) NON-REACTIVE RPR TITER (test code = 3500) NOT INDIC. TITER Oj LiangHEPATITIS A IgM [REFLEX]2019-05-19 00:00:00* Test Item Value Reference Range Interpretation Comme nts HEPATITIS A IgM (test code = 2728) NON-REACTIVE Oj Moses AustinVAGINAL PATHOGENS DNA [id number] 00:00:00* Test Item Value Reference Range Interpretation Comme nts AMANDA SPECIES (test code = ) NEGATIVE G. VAGINALIS (test code = 34790) POSITIVE T. VAGINALIS (test code = 37550) NEGATIVE Oj Moses AustinHIV AB/AG COMBO RFLX [id number] 00:00:00* Test Item Value Reference Range Interpretation [...] (NOTE) INTERPRETATION HEPATITIS B: (test code = 33191) (NOTE) INTERPRETATION HEPATITIS C: (test code = 98416) (NOTE) Oj Moses [id number] 00:00:00* Test Item Value Reference Range Interpretation Comme nts RPR RESULT (test code = 3501) NON-REACTIVE RPR TITER (test code = 3500) NOT INDIC. TITER Oj LiangHEPATITIS A IgM [REFLEX]2019-05-19 00:00:00* Test Item Value Reference Range Interpretation Comme nts HEPATITIS A IgM (test code = 2728) NON-REACTIVE Oj Moses AustinVAGINAL PATHOGENS DNA [id number] 00:00:00* Test Item Value Reference Range Interpretation Comme nts AMANDA SPECIES (test code = ) NEGATIVE G. VAGINALIS (test code = 87683) POSITIVE T. VAGINALIS (test code = 77195) NEGATIVE Oj Moses AustinHIV AB/AG COMBO RFLX [id number] 00:00:00* Test Item Value Reference Range Interpretation Comme nts HIV 1/2 4TH GEN, RFLX CONF ( test code = 3514) NON-REACTIVE Oj Moses AustinPAP TEST, THINPREP, [id number] 00:00:00* Test Item Value Reference Range Interpretation Comme nts SOURCE: (test code = 8001) Cervical/Endocervical SLIDES: (test code = 8011) 1 LMP: (test code = 8021) 09/25/2018 SPECIMEN ADEQUACY: (test code = 90546) (NOTE) INTERPRETATION: (test code = 57322) NILM/NO EPITH. ABNORMALITY;SEE BELOW UNDRAPED ARTIST MODEL: (test code = 8101) MAGEN Cerda(ASCP) LOCATION: (test code = 10382) (NOTE) CPT: (test code = 8140) (NOTE) Oj F AustinGC AND CHLAMYDIA AMPLIFIED, [id number] 00:00:00* Test Item Value Reference Range Interpretation Comme nts GONORRHEA, TMA (test code = 85550) NEGATIVE CHLAMYDIA, TMA (test code = 42376) NEGATIVE Oj F AustinPAP TEST, THINPREP, [id number] 00:00:00* Test Item Value Reference Range Interpretation Comme nts SOURCE: (test code = 8001) Cervical/Endocervical SLIDES: (test code = 8011) 1 LMP: (test code = 8021) 09/25/2018 SPECIMEN ADEQUACY: (test code = 35599) (NOTE) INTERPRETATION: (test code = 01039) NILM/NO EPITH. ABNORMALITY;SEE BELOW UNDRAPED ARTIST MODEL: (test code = 8101) MAGEN Cerda(ASCP) LOCATION: (test code = 51012) (NOTE) CPT: (test code = 8140) (NOTE) Oj F AustinGC AND CHLAMYDIA AMPLIFIED, [id number] 00:00:00* Test Item Value Reference Range Interpretation Comme nts GONORRHEA, TMA (test code = 06776) NEGATIVE CHLAMYDIA, TMA (test code = 34280) NEGATIVE Oj F AustinPAP TEST, THINPREP, [id number] 00:00:00* Test Item Value Reference Range Interpretation Comme nts SOURCE: (test code = 8001) Cervical/Endocervical SLIDES: (test code = 8011) 1 LMP: (test code = 8021) 09/25/2018 SPECIMEN ADEQUACY: (test code = 22699) (NOTE) INTERPRETATION: (test code = 80915) NILM/NO EPITH. ABNORMALITY;SEE BELOW UNDRAPED ARTIST MODEL: (test code = 8101) MAGEN Cerda(ASCP) LOCATION: (test code = 77569) (NOTE) CPT: (test code = 8140) (NOTE) Oj F AustinGC AND CHLAMYDIA AMPLIFIED, [id number] 00:00:00* Test Item Value Reference Range Interpretation Comme nts GONORRHEA, TMA (test code = 76178) NEGATIVE CHLAMYDIA, TMA (test code = 83007) NEGATIVE Oj F AustinHIV AB/AG COMBO RFLX [id number] 00:00:00* Test Item Value Reference Range Interpretation Comme nts HIV 1/2 4TH GEN, RFLX CONF ( test code = 3514) NON-REACTIVE Oj F AustinGC AND CHLAMYDIA, AMPLIFIED, [id number] 00:00:00* Test Item Value Reference Range Interpretation Comme nts GONORRHEA, TMA (test code = 06100) NEGATIVE CHLAMYDIA, TMA (test code = 46249) NEGATIVE Oj F AustinHIV AB/AG COMBO RFLX [id number] 00:00:00* Test Item Value Reference Range Interpretation Comme nts HIV 1/2 4TH GEN, RFLX CONF ( test code = 3514) NON-REACTIVE Oj F AustinGC AND CHLAMYDIA, AMPLIFIED, [id number] 00:00:00* Test Item Value Reference Range Interpretation Comme nts GONORRHEA, TMA (test code = 15834) NEGATIVE CHLAMYDIA, TMA (test code = 85921) NEGATIVE Oj F AustinHIV AB/AG COMBO RFLX [id number] 00:00:00* Test Item Value Reference Range Interpretation Comme nts HIV 1/2 4TH GEN, RFLX CONF ( test code = 3514) NON-REACTIVE Oj F AustinGC AND CHLAMYDIA, AMPLIFIED, [id number] 00:00:00* Test Item Value Reference Range Interpretation Comme nts GONORRHEA, TMA (test code = 89833) NEGATIVE CHLAMYDIA, TMA (test code = 10102) NEGATIVE Oj F Garth
[2024-03-25] MEDS ORDERED: ONDANSETRON 4 MG/2 ML VIAL ONE (12:26)
[2024-03-25] MEDS ORDERED: NA CHLORIDE 0.9% 1,000 ML ONE (12:27)
[2024-03-25] MEDS ORDERED: MORPHINE 4 MG/ML SYR ONE (12:27)
[2024-03-25 12:33] LABS: Absolute Eosinophils 0.4 K/uL (0-0.5); Absolute Lymphocytes (CBC) 1.9 K/uL (0.7-4.9); Absolute Monocytes 0.6 K/uL (0.1-1.3); Absolute Neutrophil 3.3 K/uL (1.8-8.0); Basophils % 0.6 % (0-1.3); Eosinophils % 6.7 % (0-4.4); Hematocrit 40.5 % (36.0-45.0); Hemoglobin 13.6 g/dL (12.0-15.0); Lymphocytes % 30.7 % (15.3-44.8); MCH 30.6 pg (27.0-35.0); MCHC 33.6 g/dL (32.0-36.0); MPV 7.6 fL (7.6-11.3); Monocytes % 8.9 % (3.3-12.3); Neutrophils % 53.1 % (41.7-73.7); Platelets 322 thou/uL (152-406); RBC Red Blood Cell Count 4.45 M/uL (3.86-4.86); Red Cell Distribution Width 13.5 % (12.1-15.2)
[2024-03-25 12:40] LABS: Specific Gravity 1.028 (1.005-1.030); Sqamous Epithelial <5 /HPF (None Seen); Urine Bacteria <20 /HPF (<20); Urine Bilirubin NEGATIVE (Negative); Urine Blood 2+ (Negative); Urine Clarity Turbid (Clear); Urine Color Yellow (Yellow); Urine Culture Reflex Order NOT NEEDED; Urine Glucose NEGATIVE (Negative); Urine Ketones NEGATIVE (Negative); Urine Microscopic Reflex YN ORDER UMIC; Urine Mucus Slight /HPF (None Seen); Urine Nitrite NEGATIVE (Negative); Urine Protein NEGATIVE (Negative); Urine RBC <5 /HPF (None Seen); Urine Urobilinogen Normal (Normal); Urine WBC <5 /HPF (<5); Urine pH 5.5 (5.0-7.0)
[2024-03-25 12:42] LABS: Specific Gravity 1.028 (1.005-1.030)
[2024-03-25 12:55] LABS: Albumin 3.5 g/dL (3.4-5.0); Albumin/Globulin Ratio 0.9 (1.1-1.8); Anion Gap 7.6 mEq/L (5.0-15.0); Bilirubin Total 0.5 mg/dL (0.2-1.0); Globulin 3.8 g/dL (2.3-3.5); Potassium 3.6 mEq/L (3.5-5.1); Protein, Total 7.3 g/dL (6.4-8.2)
--- NOTE | 2024-03-25 14:45 | RAD REPORT ---
EXAMINATION: CT ABDOMEN AND PELVIS WITH CONTRAST CLINICAL INDICATION: Abdominal pain TECHNIQUE: CT abdomen and pelvis was performed, after the administration of 100 cc Isovue-300.. Sagit pool and coronal reconstructions were obtained. One or more of the following dose reduction techniques were used: Automated exposure control, adjustment of the mA and kV according to patient si ze, and iterative reconstruction. Unless otherwise specified, incidental findings do not require dedicated imaging follow-up. [id number]. Oral contrast was not given which limits evaluation of bowel and appendix. COMPARISON: .December 2023 FINDINGS: Liver, spleen, pancreas, and left kidney unremarkable. Tiny right renal calculus. No hydronephrosis. Normal appendix. No adnexal mass. No evidence of diverticulitis. Post surgical changes stomach. Apparent thickening wall distal stomach : IMPRESSION: Tiny nonobstructing right renal calculus Apparent thickening wall distal stomach could be secondary to incomplete distention or inflammation.
--- NOTE | 2024-03-25 14:52 | ER ---
Nurse's Notes [facility] Name: Inés Valencia Age: 28 yrs Sex: Female : 1995 Arrival Date: 03/25/2024 Time: 11:53 Bed 10 Private MD: Diagnosis: Calculus of kidney;Muscle spasm Presentation: 03/25 12:05 Chief complaint: Patient states: Left sided back pain onset three days ago. Denies cm10 dysuria. Coronavirus screen: Client denies travel out of the [place] in the last 14 days. Ebola Screen: Patient denies travel to an Ebola-affected area in the 21 days before illness onset. No symptoms or risks identified at this time. Initial Sepsis Screen: Does the patient meet any 2 criteria? HR > 90 bpm. Does the patient have a suspected source of infection? No. Patient's initial sepsis screen is negative. Risk Assessment: Do you want to hurt yourself or someone else? Patient reports no desire to harm self or others. Onset of symptoms was March 25, 2024. 12:05 Method Of Arrival: Ambulatory cm10 12:05 Acuity: FABIOLA 3 cm10 Triage Assessment: 12:06 General: Appears in no apparent distress. uncomfortable, Behavior is calm, cooperative. cm10 Pain: Complains of pain in left flank Pain does not radiate. Pain currently is 8 out of 10 on a pain scale. Quality of pain is described as dull. Neuro: No deficits noted. Level of Consciousness is awake, alert, obeys commands, Oriented to person, place, time, situation. Respiratory: No deficits noted. Airway is patent Respiratory effort is even, unlabored, Respiratory pattern is regular, symmetrical. Historical: - Allergies: 12:06 No Known Allergies; cm10 - PMHx: 12:06 diabetes mellitus; Heart Murmur; cm10 - Immunization history:: Adult Immunizations up to date. - Infectious Disease History:: Denies. - Social history:: Smoking status: Patient denies any tobacco usage or history of. Screenin:[facility] ED Fall Risk Assessment (Adult) History of falling in the last 3 months, br2 including since admission No falls in past 3 months (0 pts) Confusion or Disorientation No (0 pts) Intoxicated or Sedated No (0 pts) Impaired Gait No (0 pts) Mobility Assist Device Used No (0 pt) Altered Elimination No (0 pt) Score/Fall Risk Level 0 - 2 = Low Risk Oriented to surroundings. Abuse screen: Denies threats or abuse. Denies injuries from another. Nutritional screening: No deficits noted. Tuberculosis screening: No symptoms or risk factors identified. Assessment: 12:10 Reassessment: Patient and/or family updated on plan of care and expected duration. Pain br2 level reassessed. Patient is alert, oriented x 3, equal unlabored respirations, skin warm/dry/pink. General: Appears in no apparent distress. comfortable, Behavior is calm, cooperative. Pain: Complains of pain in right lower back Pain does not radiate. Pain currently is 8 out of 10 on a pain scale. Neuro: Phillips Agitation-Sedation Scale (RASS): 0 - Alert and Calm Level of Consciousness is awake, alert, obeys commands, Oriented to person, place, time, situation. Cardiovascular: Capillary refill < 3 seconds. Respiratory: Airway is patent Respiratory effort is even, unlabored, Respiratory pattern is regular, symmetrical. GI: No signs and/or symptoms were reported involving the gastrointestinal system. GI: No signs and/or symptoms were reported involving the gastrointestinal system. : Denies burning with urination, urinary frequency. EENT: No signs and/or symptoms were reported regarding the EENT system. Derm: No signs and/or symptoms reported regarding the dermatologic system. Musculoskeletal: Capillary refill < 3 seconds, Range of motion: intact in all extremities. 13:02 Reassessment: Patient and/or family updated on plan of care and expected duration. Pain br2 level reassessed. Patient is alert, oriented x 3, equal unlabored respirations, skin warm/dry/pink. Patient states feeling better. Patient states symptoms have improved. 13:49 Reassessment: No changes from previously documented assessment. Patient and/or family br2 updated on plan of care and expected duration. Pain level reassessed. Patient is alert, oriented x 3, equal unlabored respirations, skin warm/dry/pink. Patient states feeling better. Patient states symptoms have improved. 14:31 Reassessment: Patient and/or family updated on plan of care and expected duration. Pain br2 level reassessed. Patient is alert, oriented x 3, equal unlabored respirations, skin warm/dry/pink. Patient states feeling better. Patient states symptoms have improved. Vital Signs: 12:05 BP 150 / 93; Pulse 96; Resp 15; Temp 98; Pulse Ox 100% on R/A; Weight 70.31 kg; Height cm10 4 ft. 11 in. ; Pain 8/10; 13:02 BP 131 / 80; Pulse 67; Resp 18; Pulse Ox 99% ; Pain 5/10; br2 14:30 BP 124 / 78; Pulse 56; Resp 18; Pulse Ox 100% ; Pain 4/10; br2 12:05 Body Mass Index 31.31 (70.31 kg, 149.86 cm) cm10 12:05 Pain Scale: Adult cm10 13:02 Pain Scale: Adult br2 14:30 Pain Scale: Adult br2 ED Course: 11:58 Patient arrived in ED. ra3 12:00 Lewis Tomas FNP-C is PHCP. dr5 12:00 Lucio Huntley MD is Attending Physician. dr5 12:06 Triage completed. cm10 12:07 Arm band placed on right wrist. Patient placed in an exam room. cm10 12:09 Vi Hernandez, RN is Primary Nurse. br2 12:15 Patient has correct armband on for positive identification. Bed in low position. Call br2 light in reach. Side rails up X 1. Provided Education on: plan of care. 12:15 Inserted saline lock: 20 gauge in right antecubital area, using aseptic technique. br2 Blood collected. Flushed with 10 mL NS. 12:22 Test, Urine Sent. br2 12:22 Urinalysis w/ reflexes Sent. br2 12:22 CMP Sent. br2 12:22 CBC with Diff Sent. br2 14:28 CT Abd/Pelvis - IV Contrast Only In Process Unspecified. EDMS 14:58 No provider procedures requiring assistance completed. IV discontinued, intact, br2 bleeding controlled, No redness/swelling at site. Pressure dressing applied. Administered Medications: 12:42 Drug: morphine IVP or IV 4 mg IVP once over 4 mins Route: IVP; Infused Over: 4 mins; br2 Site: right antecubital; 14:00 Follow up: Response: No adverse reaction; Pain is decreased br2 12:42 Drug: NS 0.9% IV 1000 ml IV at 1000 ml once; to be given as a bolus over 60 minutes br2 Route: IV; Rate: 1000 ml; Site: right antecubital; 14:00 Follow up: Response: No adverse reaction; IV Status: Completed infusion; IV Intake: br2 1000ml 12:42 Drug: Ondansetron IVP 4 mg IVP once; over 2 minutes Route: IVP; Site: right antecubital;br2 14:00 Follow up: Response: No adverse reaction br2 Medication: 14:59 VIS not applicable for this client. br2 Intake: 14:00 IV: 1000ml; Total: 1000ml. br2 Outcome: 14:51 Discharge ordered by . dr5 14:58 Discharged to home ambulatory, br2 14:58 Condition: good 14:58 Discharge instructions given to patient, Instructed on discharge instructions, Demonstrated understanding of instructions, follow-up care, medications, Prescriptions given X 2, 15:01 Patient left the ED. br2 Signatures: Dispatcher [employer] EDMS Nika Dinero RN RN cm10 Haily Arellano ra3 Vi Hernandez RN RN br2 Lewis Tomas, HUMAN RESOURCES OFFICE MANAGER-C HUMAN RESOURCES OFFICE MANAGER-[facility]5
--- NOTE | 2024-03-25 14:52 | EDPHYS ---
Physician Documentation [facility] Name: Inés Valencia Age: 28 yrs Sex: Female : 1995 Arrival Date: 03/25/2024 Time: 11:53 Bed 10 Private MD: ED Physician Lucio Huntley HPI: 03/25 13:03 This 28 yrs old Female presents to ER via Ambulatory with complaints of Back dr5 Pain. 13:03 The patient presents with pain that is acute, with no known mechanism of injury. The dr5 symptoms are located in the left low back and left mid back. Onset: The symptoms/episode began/occurred 3 day(s) ago. Patient is a 28-year-old female with history of diabetes coming in with left lower back pain that is been going on for 3 days. Patient reports is a dull constant pain. Patient started her menstrual cycle yesterday. Patient reports history of kidney stones on right side. Patient denies fever. . Historical: - Allergies: 12:06 No Known Allergies; cm10 - PMHx: 12:06 diabetes mellitus; Heart Murmur; cm10 - Immunization history:: Adult Immunizations up to date. - Infectious Disease History:: Denies. - Social history:: Smoking status: Patient denies any tobacco usage or history of. ROS: 13:03 Constitutional: as per hpi dr5 Exam: 13:03 Constitutional: This is a well developed, well nourished patient who is awake, alert, dr5 and in no acute distress. Head/Face: Normocephalic, atraumatic. Eyes: Pupils equal round and reactive to light, extra-ocular motions intact. Lids and lashes normal. Conjunctiva and sclera are non-icteric and not injected. Cornea within normal limits. Periorbital areas with no swelling, redness, or edema. Neck: Trachea midline, no thyromegaly or masses palpated, and no cervical lymphadenopathy. Supple, full range of motion without nuchal rigidity, or vertebral point tenderness. No Meningismus. Chest/axilla: Normal chest wall appearance and motion. Nontender with no deformity. No lesions are appreciated. Cardiovascular: Regular rate and rhythm with a normal S1 and S2. Normal PMI, no JVD. No pulse deficits. Respiratory: Lungs have equal breath sounds bilaterally, clear to auscultation. No rales, rhonchi or wheezes noted. No increased work of breathing, no retractions or nasal flaring. 13:03 Neuro: Awake and alert, GCS 15, oriented to person, place, time, and situation. Cranial nerves II-XII grossly intact. Motor strength 5/5 in all extremities. Sensory grossly intact. Cerebellar exam normal. Normal gait. 13:03 Back: pain, that is moderate, of the left low back and left mid back, ROM is normal, normal spinal alignment noted, CVA tenderness, that is moderate, is noted on the left, 13:03 Neuro: Exam negative for Vital Signs: 12:05 BP 150 / 93; Pulse 96; Resp 15; Temp 98; Pulse Ox 100% on R/A; Weight 70.31 kg; Height cm10 4 ft. 11 in. ; Pain 8/10; 13:02 BP 131 / 80; Pulse 67; Resp 18; Pulse Ox 99% ; Pain 5/10; br2 14:30 BP 124 / 78; Pulse 56; Resp 18; Pulse Ox 100% ; Pain 4/10; br2 12:05 Body Mass Index 31.31 (70.31 kg, 149.86 cm) cm10 12:05 Pain Scale: Adult cm10 13:02 Pain Scale: Adult br2 14:30 Pain Scale: Adult br2 MDM: 12:01 Medical Screening Exam initiated dr5 14:53 ED course: Patient reports having ketorolac and Flomax at home that she can take as dr5 needed for pain. 17:28 Differential diagnosis: Pyelonephritis UTI, Nephrolithiasis. Data reviewed: vital dr5 signs, nurses notes, lab test result(s), radiologic studies, CT scan. Consideration of Admission/Observation Escalation of care including admission/observation considered. Admission versus escalation considered if patient had large stone that was obstructing causing hydronephrosis. Care significantly affected by the following chronic conditions: Diabetes. Care significantly affected by the following Social Determinants of Health: Poor access to healthcare and/or lack of insurance, Poor access to transportation, Problems related to employment. Counseling: I had a detailed discussion with the patient and/or guardian regarding the historical points, exam findings, and any diagnostic results supporting the discharge/admit diagnosis, the presence of at least one elevated blood pressure reading (>120/80) during this emergency department visit, lab results, radiology results, the need for outpatient follow up, for definitive care, a family practitioner, a urologist, to return to the emergency department if symptoms worsen or persist or if there are any questions or concerns that arise at home. Medication response: morphine relieved the patient's pain. Symptoms have resolved. ED course: Patient's pain has resolved and feeling much better. Will have patient take home ketorolac and tamsulosin as needed. Recommended follow-up with primary care doctor and/or urology for further management. All questions answered. Return to ER if worsening conditions. 03/25 12:09 Order name: CBC with Diff; Complete Time: 12:40 dr5 03/25 12:09 Order name: CMP; Complete Time: 12:59 dr5 03/25 12:09 Order name: Urinalysis w/ reflexes; Complete Time: 12:40 dr5 03/25 12:09 Order name: Test, Urine; Complete Time: 12:49 dr5 03/25 13:02 Order name: CT Abd/Pelvis - IV Contrast Only; Complete Time: 14:46 dr5 Administered Medications: 12:42 Drug: morphine IVP or IV 4 mg IVP once over 4 mins Route: IVP; Infused Over: 4 mins; br2 Site: right antecubital; 14:00 Follow up: Response: No adverse reaction; Pain is decreased br2 12:42 Drug: NS 0.9% IV 1000 ml IV at 1000 ml once; to be given as a bolus over 60 minutes br2 Route: IV; Rate: 1000 ml; Site: right antecubital; 14:00 Follow up: Response: No adverse reaction; IV Status: Completed infusion; IV Intake: br2 1000ml 12:42 Drug: Ondansetron IVP 4 mg IVP once; over 2 minutes Route: IVP; Site: right antecubital;br2 14:00 Follow up: Response: No adverse reaction br2 Disposition Summary: 03/25/24 14:51 Discharge Ordered Notes: Location: Home dr5 Condition: Stable dr5 Diagnosis - Calculus of kidney dr5 - Muscle spasm dr5 Followup: dr5 - With: Emergency Department - When: As needed - Reason: Worsening of condition Followup: dr5 - With: Private Physician - When: 1 - 2 days - Reason: Recheck today's complaints, Continuance of care, Re-evaluation by your physician Discharge Instructions: - Discharge Summary Sheet dr5 - Kidney Stones dr5 Forms: - Work release form dr5 - Medication Reconciliation Form dr5 - Prescription Opioid Use dr5 - Patient Portal Instructions dr5 - Leadership Thank You Letter dr5 Prescriptions: - acetaminophen-codeine 300-15 mg Oral tablet - take 1 tablet ORAL route every 4 to 6 hours As needed as needed for pain; 20 dr5 tablet; Refills: 0, Product Selection Permitted - Cyclobenzaprine 10 mg Oral Tablet - take 1 tablet ORAL route every 8 hours As needed; 30 tablet; Refills: 0, dr5 Product Selection Permitted Addendum: 03/27/2024 15:30 Co-signature as Attending Physician, Lucio Huntley MD I agree with the assessment and c merrill plan of care. Signatures: Dispatcher [employer] [facility] Lucio Huntley MD MD cha Martinez, Clarissa, RN RN cm10 Vi Hernandez RN RN br2 Lewis Tomas, HVAC FIELD SERVICE TECHNICIAN-C HVAC FIELD SERVICE TECHNICIAN-Cdr5 Corrections: (The following items were deleted from the chart) 03/25 13:09 13:00 Parvez Protocol+[email or web address] ordered. [facility]
[2024-03-25 15:22] VITALS: TEMP 98
[2024-03-25 15:25] VITALS: BP 124/78; O2SAT 100
== END 2024-03-25 15:01 | disposition home or self-care (01) ==
LOC: ER 11:53
DX: N20.0 Calculus of kidney (principal); M62.830 Muscle spasm of back; Z87.442 Personal history of urinary calculi
CPT/HCPCS: 96361; 85025; 81001; 36415; 81025; 80053; 74177; 96375; 96374; 99284; J2405; J7030